=== PATIENT | female | born 1940 | race Caucasian/White ===

== ENCOUNTER → 2019-02-10 12:02 | Outpatient (CLI) | payer MEDICARE, SELFPAY ==
--- NOTE | 2019-02-10 12:04 | CA_ITS ---
APPROVED REPORT Control Room Agent: JAYCE Laterality: Bilateral Study Quality: Good Indications: left carotid bruit Doppler Spectral Velocity Analysis dICA (R) 85.00/27.80 cm/s dICA (L) 62.10/17.20 cm/s Linnette (R) 61.20/18.00 cm/s Linnette (L) 73.30/17.20 cm/s pICA (R) 53.50/15.80 cm/s pICA (L) 75.60/19.50 cm/s dCCA (R) 56.00/11.50 cm/s dCCA (L) 56.50/12.90 cm/s pCCA (R) 59.50/13.70 cm/s pCCA (L) 55.70/11.10 cm/s Vert (R) 36.60/10.60 cm/s Vert (L) 29.90/6.60 cm/s ICA/CCA 1.52 ICA/CCA 1.34 Conclusion Duplex evaluation demonstrates stenosis of the right proximal internal carotid artery in the range of 20-49% with PSV <140 cm/sec, EDV <100 cm/sec, and IC/CC Ratio <4.0.Duplex evaluation demonstrates stenosis of the left proximal internal carotid artery in the range of 20-49% with PSV <140 cm/sec, EDV <100 cm/sec, and IC/CC Ratio <4.0.Antegrade flow seen bilateral vertebral arteries. Electronically signed by : Taurus Cruz MD 02/13/2019 17:02:22
--- NOTE | 2019-02-10 12:04 | CA_ITS ---
APPROVED REPORT EXAM: Comprehensive 2D, Doppler, and color-flow Echocardiogram Concrete Float Maker: Arlet Paniagua RDCS Ht: 5 ft 3 in Wt: 196lbs BSA: 1.92 BP: 122/68 mmHg Indications: Aortic Valve Disease, Murmur, Shortness of Breath, Hyperlipidemia 2D Dimensions LVOT 1.91 cm (M/F) 1.5-2.5 M-Mode Dimensions RVDd 2.85 cm (0.9-2.6) LVDd 4.36 cm (3.5-5.7) LVDs 3.54 cm (3.5-5.7) IVSd 1.28 cm (0.6-1.1) PWd 1.05 cm (0.6-1.1) EF (Teich) 39.00% FS 18.80% EDV (Teich) 85.80 mL ESV (Teich) 52.30 mL LV Diastology E/A Ratio 0.70 Aortic Valve LVOT Max 93.00 (70-110 cm/s) LVOT VTI 21.95 cm Mitral Valve MV A Velocity 128.00 (40-130 cm/s) MV Mean Gr. 4.00 (<2mmHg) MV PHT 77.00 ms Left Ventricle Left atrium is moderately enlarged, left ventricle is normal size, mild concentric left ventricular hypertrophy, visually estimated ejection fraction 55% with no regional wall motion abnormality. Grade 1 diastolic dysfunction seen without tissue Doppler evidence of raise left atrial pressure. Right Ventricle Right atrium and right ventricular normal size and contractility. Aortic Valve Aortic valve is thickened and calcified with severe restriction to leaflet mobility, the mean gradient across valve is 21 mmHg however the valve area is calculated at 0.95 cm??? represents severe aortic stenosis, there is mild aortic insufficiency. Mitral Valve Mitral valve has mitral annular calcification, leaflets are minimally thickened, there is no significant mitral inflow obstruction, there is mild mitral regurgitation. Tricuspid Valve Tricuspid valve is grossly normal, there is mild tricuspid regurgitation, tricuspid regurgitation jet velocity is inadequate for calculation of the right ventricular systolic pressure. Pulmonic Valve Pulmonic valve is poorly visualized. Great Vessels Aortic root is normal size. Pericardium No significant pericardial effusion noted. Conclusion 1. Enlarged left atrium, normal left ventricular size, mild concentric left ventricular hypertrophy, visually estimated ejection fraction 55% with no regional wall motion abnormality, grade 1 diastolic dysfunction seen without tissue Doppler evidence of raise left atrial pressure. 2. Thickened and calcified aortic valve with severe restriction to leaflet mobility, mean gradient across aortic valve is 21 mmHg however the valve area is calculated at 0.95 cm??? represents severe aortic stenosis, there is mild aortic insufficiency. 3. Mild mitral and tricuspid regurgitation. 4. No significant pericardial effusion noted. Electronically signed by : Kunal Penny, 02/11/2019 06:07:44
== END ==
PROVIDERS: PCP Nurse Practitioner Family; Visit Provider Nurse Practitioner Family
DX: R09.89 Other specified symptoms and signs involving the circulatory and respiratory systems (principal); E11.9 Type 2 diabetes mellitus without complications; E78.2 Mixed hyperlipidemia; I11.9 Hypertensive heart disease without heart failure; I25.10 Atherosclerotic heart disease of native coronary artery without angina pectoris; I34.0 Nonrheumatic mitral (valve) insufficiency; I35.0 Nonrheumatic aortic (valve) stenosis; I70.1 Atherosclerosis of renal artery; N18.3 Chronic kidney disease, stage 3 (moderate); R06.09 Other forms of dyspnea; Z79.4 Long term (current) use of insulin
CPT/HCPCS: 93306; 93880

== ENCOUNTER → 2019-08-10 11:43 | Outpatient (CLI) | payer MEDICARE, SELFPAY | PROVIDERS: PCP Nurse Practitioner Family; Visit Provider Internal Medicine | DX: R06.00 Dyspnea, unspecified; I25.10 Atherosclerotic heart disease of native coronary artery without angina pectoris; E11.9 Type 2 diabetes mellitus without complications; E78.5 Hyperlipidemia, unspecified; I11.9 Hypertensive heart disease without heart failure; I35.0 Nonrheumatic aortic (valve) stenosis; I70.1 Atherosclerosis of renal artery; I73.9 Peripheral vascular disease, unspecified; N18.3 Chronic kidney disease, stage 3 (moderate); R09.89 Other specified symptoms and signs involving the circulatory and respiratory systems; Z79.4 Long term (current) use of insulin | CPT/HCPCS: 93306 ==

== ENCOUNTER → 2020-07-28 06:28 | Outpatient (CLI) | payer MEDICARE, SELFPAY ==
--- NOTE | 2020-07-28 06:30 | CA_ITS ---
APPROVED REPORT EXAM: Comprehensive 2D, Doppler, and color-flow Echocardiogram Trim And Burr Operator: Latonya Granados CRT Ht: 153 ft 4 in Wt: 194lbs BSA: 22.04 BP: 153/84 mmHg Indications: CAD, Hypertension/HDD, TAVR 2019, SOB, CAD 2D Dimensions LVOT 1.80 cm (M/F) 1.5-2.5 LA Volume 48.00 mL LA Volume Index 2.17 mL/m2 (M/F) 16-34 M-Mode Dimensions RVDd 2.60 cm (0.9-2.6) LA Diam 5.30 cm (1.9-4.0) LVDd 4.50 cm (3.5-5.7) Ao Diam 3.50 cm (2.0-3.7) LVDs 2.40 cm (3.5-5.7) AV Cusp 1.80 cm (1.5-2.6) IVSd 1.20 cm (0.6-1.1) PWd 0.80 cm (0.6-1.1) EF (Teich) 78.10% FS 46.70% EDV (Teich) 92.40 mL ESV (Teich) 20.20 mL LV Diastology E Decel Time 363.00 (160-240 msec) E/A Ratio 0.7 MED E' 3.70 (< 7 cm/sec) MED A' 7.02 cm/s E'/MED E' Ratio 29.20 (>14) LAT A' 8.87 cm/s Aortic Valve LVOT Max 150.00 (70-110 cm/s) LVOT VTI 33.10 cm AoV Peak Winston. 139.00 (50-130 cm/s) AO Peak GR. 8.00 mmHg AO Mean GR. 2.00 (<5 mmHg) AO VTI 20.20 (18-25 cm) FAHAD (VTI) 4.16 (2.5-4.5 cm2) Mitral Valve MV E Max Winston. 108.00 (40-130 cm/s) MV A Velocity 149.00 (40-130 cm/s) E/A Ratio 0.70 MV Decel. Time 363.00 (160-240 ms) Pulmonary Valve IN End VMAX 133.00 cm/s PA Accel Time 74.00 (>120 msec) Tricuspid Valve TR P. Velocity 262.00 cm/s RAP Estimate 10.00 mmHg RVSP 37.00 mmHg Left Ventricle Left atrium is mildly enlarged, left ventricle is normal size, mild concentric left ventricular hypertrophy, visually estimated ejection fraction 55% with no regional wall motion abnormality, grade 1 diastolic dysfunction seen with tissue Doppler evidence of raise left atrial pressure. Right Ventricle Right atrium and right ventricle are normal size and contractility. Aortic Valve There is stented valve noted in the aortic position, the valve is well-seated, there is no aortic outflow obstruction, there is mild aortic insufficiency. Mitral Valve Mitral valve has mitral annular calcification, leaflets are minimally thickened, there is no mitral stenosis, there is moderate mitral regurgitation. Tricuspid Valve Tricuspid valve grossly normal, there is mild tricuspid regurgitation. Tricuspid regurgitation jet velocity is inadequate for calculation of the right ventricular systolic pressure. Pulmonic Valve Pulmonic valve is poorly visualized. Great Vessels Aortic root is normal size. Pericardium No significant pericardial effusion noted. Conclusion 1. Mildly enlarged left atrium, normal left ventricular size, mild concentric left ventricular hypertrophy, visually estimated ejection fraction 55% with no regional wall motion abnormality, grade 1 diastolic dysfunction seen with tissue Doppler evidence of raise left atrial pressure. 2. Stented aortic valve without significant aortic outflow obstruction, there is mild aortic insufficiency. 3. Moderate mitral and mild tricuspid regurgitation. 4. No significant pericardial effusion noted. Electronically signed by : Kunal Penny, 07/28/2020 15:55:42
== END ==
PROVIDERS: PCP Nurse Practitioner Family; Visit Provider Internal Medicine
DX: E11.9 Type 2 diabetes mellitus without complications (principal); E78.5 Hyperlipidemia, unspecified; I11.9 Hypertensive heart disease without heart failure; I25.10 Atherosclerotic heart disease of native coronary artery without angina pectoris; I34.0 Nonrheumatic mitral (valve) insufficiency; I70.1 Atherosclerosis of renal artery; N18.30 Chronic kidney disease, stage 3 unspecified; R01.1 Cardiac murmur, unspecified; R06.00 Dyspnea, unspecified; R09.89 Other specified symptoms and signs involving the circulatory and respiratory systems; Z79.84 Long term (current) use of oral hypoglycemic drugs
CPT/HCPCS: 93306

== ENCOUNTER → 2022-01-17 11:55 | Outpatient (CLI) | payer MEDICARE, SELFPAY | PROVIDERS: PCP Nurse Practitioner Family; Visit Provider Internal Medicine | DX: R06.00 Dyspnea, unspecified (principal); R01.1 Cardiac murmur, unspecified ==

== ENCOUNTER → 2022-01-31 12:17 | Outpatient (CLI) | payer MEDICARE, SELFPAY | PROVIDERS: PCP Nurse Practitioner Family; Visit Provider Internal Medicine | DX: E78.2 Mixed hyperlipidemia (principal); H57.9 Unspecified disorder of eye and adnexa; I11.9 Hypertensive heart disease without heart failure; I25.10 Atherosclerotic heart disease of native coronary artery without angina pectoris; I35.0 Nonrheumatic aortic (valve) stenosis; I63.9 Cerebral infarction, unspecified; I65.23 Occlusion and stenosis of bilateral carotid arteries; I70.1 Atherosclerosis of renal artery; R06.09 Other forms of dyspnea | CPT/HCPCS: 93270 ==

== ENCOUNTER 2022-03-22 07:13 | Day surgery (SDC) | payer MEDICARE, SELFPAY ==
[2022-03-22 07:33] VITALS: BMI 33.6
[2022-03-22 08:05] VITALS: BP 161/72; PULSE 64; RESP 16; O2SAT 95
[2022-03-22 08:34] VITALS: BP 158/80; PULSE 66; RESP 16; O2SAT 96
[2022-03-22 08:42] VITALS: BP 166/87; PULSE 75; RESP 18; O2SAT 96
--- NOTE | 2022-03-22 09:49 | P.PCN_ITS ---
[facility] Loop Recorder Date: 03/22/22 Time: 08:30 Procedure Performed:: Implantation of loop recorder Indication:: Cryptogenic stroke Atrial fibrillation Technique:: Patient was brought to the cardiac [employer]. After informed consent obtained, 1% lidocaine with epinephrine was used to anesthetize the site along the left anterior aspect of the chest near the sternal border. Using the preformed scalpel, an incision was made and using the supplied preloaded apparatus, the loop recorder was placed subcutaneously without difficulty. Following the deployment of the loop recorder interrogation of the device was performed to ensure appropriate voltage was being detected. Once this was verified, Steri- Strips were placed over the incision and the patient was prepped to discharge home. Patient tolerated the procedure well with minimal discomfort. Impression:: Successful implantation of loop recorder Serial Number:: [employer] Lux-Dx Model number M301 Serial #[id number] Plan:: Routine postop care
== END 2022-03-22 08:42 | disposition home or self-care (01) ==
LOC: CATHLAB 07:13
PROVIDERS: PCP Nurse Practitioner Family; Visit Provider Internal Medicine
DX: I48.0 Paroxysmal atrial fibrillation (principal); I63.9 Cerebral infarction, unspecified; I65.23 Occlusion and stenosis of bilateral carotid arteries; I12.9 Hypertensive chronic kidney disease with stage 1 through stage 4 chronic kidney disease, or unspecified chronic kidney disease; N18.30 Chronic kidney disease, stage 3 unspecified
CPT/HCPCS: 33285

== ENCOUNTER → 2022-08-09 08:23 | Outpatient (CLI) | payer MEDICARE, SELFPAY | PROVIDERS: PCP Internal Medicine; Visit Provider Nurse Practitioner | DX: E78.2 Mixed hyperlipidemia (principal); I25.10 Atherosclerotic heart disease of native coronary artery without angina pectoris; I35.0 Nonrheumatic aortic (valve) stenosis; I63.9 Cerebral infarction, unspecified; I65.23 Occlusion and stenosis of bilateral carotid arteries; N18.30 Chronic kidney disease, stage 3 unspecified | CPT/HCPCS: 93306 ==

== ENCOUNTER 2023-06-27 11:03 | Outpatient (CLI) | payer MEDICARE, SELFPAY ==
--- NOTE | 2023-06-27 11:19 | XR_ITS ---
FINAL REPORT CLINICAL HISTORY: Shortness of breath COMPARISON: None FINDINGS: Diffuse coarse interstitial changes are noted suggesting chronic interstitial lung disease. Status post aortic valve repair. The cardiac silhouette is unremarkable. IMPRESSION: Interstitial changes, suspect chronic. Reviewed, Interpreted and Dictated by Ariana Park MD Transcribed by Vonnie Whitman Authenticated and [facility]
[2023-06-27 12:19] LABS: Alanine Aminotransferase 28 U/L (12-78); Albumin Level 4.2 g/dl (3.5-5.0); Alkaline Phosphatase 32 U/L (38-126); Anion Gap 8.6 mEq/L (5-15); Aspartate Amino Transferase 69 U/L (14-36); Bilirubin,Direct 0.4 mg/dl (0.0-0.4); Bilirubin,Indirect 0.4 mg/dL (0.0-0.9); Bilirubin,Total 0.8 mg/dl (0.2-1.3); Bilirubin,Unconjugated 0.4 mg/dL (0.0-1.1); Blood Urea Nitrogen 28 mg/dl (7-17); Calcium 9.8 mg/dl (8.4-10.2); Carbon Dioxide 29 mmol/L (22.0-30.0); Chloride 103 mmol/L (98-107); Chol/HDL Ratio 2.2 (1-3.5); Cholesterol 142 mg/dl (140-200); Estimated Glomerular Filt Rate 36 ml/min (>60); GFR (African American) 43 ML/MIN (>60); Glucose 74 mg/dl (74-100); HDL Cholesterol 65 mg/dl (40-60); Potassium 4.6 mmoL/L (3.5-5.1); Sodium 136 mmol/L (136-145); Total Protein,Serum 7.2 g/dl (6.3-8.2); Triglycerides 195 mg/dl (30-150); VLDL Cholesterol 39 mg/dL (0-40)
[2023-06-27 12:30] LABS: Direct LDL Cholesterol 57.94 mg/dL (100-129)
== END 2023-06-27 23:59 | disposition home or self-care (01) ==
LOC: LAB 11:04
PROVIDERS: PCP Nurse Practitioner Family; Visit Provider Nurse Practitioner
DX: R06.02 Shortness of breath; I63.9 Cerebral infarction, unspecified; I65.23 Occlusion and stenosis of bilateral carotid arteries; I35.0 Nonrheumatic aortic (valve) stenosis; E78.2 Mixed hyperlipidemia; N18.30 Chronic kidney disease, stage 3 unspecified; I25.10 Atherosclerotic heart disease of native coronary artery without angina pectoris; R60.9 Edema, unspecified; R06.09 Other forms of dyspnea; E78.5 Hyperlipidemia, unspecified; Z79.899 Other long term (current) drug therapy
CPT/HCPCS: 36415; 71046; 80048; 80061; 80076

== ENCOUNTER 2023-07-19 12:49 | Outpatient (CLI) | payer MEDICARE, SELFPAY ==
--- NOTE | 2023-07-19 12:49 | CA_ITS ---
APPROVED REPORT EXAM: Comprehensive 2D, Doppler, and color-flow Echocardiogram Director Of Spa And Guest Experience: JEFFRY Jones, RVS Ht: 5 ft 4 in Wt: 187lbs BSA: 1.90 BP: 128/59 mmHg Indications: -TAVRm CKD III, CVA, CAD, DM, DOS/SOB, Edema, HTN, HLD 2D Dimensions Left Atrium 3.60 cm M-Mode Dimensions RVDd 1.78 cm (0.9-2.6) LA Diam 5.30 cm (1.9-4.0) LVDd 5.18 cm (3.5-5.7) LVDs 2.95 cm (3.5-5.7) IVSd 0.94 cm (0.6-1.1) PWd 0.91 cm (0.6-1.1) EF (Teich) 69.80% EPSs 0.61 cm FS 39.40% EDV (Teich) 111.20 mL TAPSE 1.65 (<1.7) ESV (Teich) 33.60 mL LV Diastology E Decel Time 250 (160-240 msec) E/A Ratio 0.93 MED A' 7.80 cm/s LAT A' 7.80 cm/s Aortic Valve FAHAD Index 1.07 cm2/m2 AoV Peak Winston. 193.0 (50-130 cm/s) AO Peak GR. 14.90 mmHg AO Mean GR. 7.40 (<5 mmHg) AO VTI 42.0 (18-25 cm) FAHAD (VTI) 2.08 (2.5-4.5 cm2) Mitral Valve MV A Velocity 138.0 (40-130 cm/s) E/A Ratio 0.93 MV Mean Gr. 3.20 (<2mmHg) MV PHT 85.0 ms Pulmonary Valve PV Peak Velocity 65.0 (50-150 cm/s) Tricuspid Valve TR P. Velocity 264.00 cm/s Left Ventricle The left ventricle is normal size. The left ventricular systolic function is normal. The left ventricular ejection fraction is within the normal range. There is increased LV wall thickness. Proximal septal thickening is noted. The septum is asynchronous. Grade 2 diastolic dysfunction is present. LVEF is 55%. Right Ventricle Right ventricle is moderately dilated. Right ventricle is moderately hypokinetic. Atria Left atrium is severely dilated. Right atrium is mildly dilated. The interatrial septum is not well-visualized. Aortic Valve s/p TAVR. The prosthesis is well-seated. Peak velocity 1.9 m/s. Mean AV gradient 7 mmHg. Max AV gradient 11 mmHg. Mild central aortic regurgitation. No paravalvular leak. Mitral Valve Mild mitral annular calcification. The mitral valve leaflets are mildly thickened. No evidence of mitral valve stenosis. Moderate mitral regurgitation. Tricuspid Valve The tricuspid valve leaflets are thin and pliable. Mild tricuspid regurgitation. RVSP 28 mmHg + RA pressure. Pulmonic Valve The pulmonary valve is normal in structure. Trace pulmonic regurgitation. Great Vessels The aortic root is normal in size. The ascending aorta is not visualized. The IVC is not well-visualized. Pericardium There is no pericardial effusion. Other Information Study Quality: Fair Conclusion Normal LV systolic function. Grade 2 diastolic dysfunction. Moderate RV dilation with moderate reduction in RV function. Biatrial dilation. s/p TAVR. Mild AI. Acceptable transaortic parameters (peak velocity 1.9 m/s. Mean AV gradient 7 mmHg. Max AV gradient 11 mmHg). Moderate MR. Mild TR. RVSP 28 mmHg + RA pressure. Electronically signed by : Ara Kelley MD 07/24/2023 00:57:52
== END 2023-07-19 23:59 | disposition home or self-care (01) ==
LOC: RT 12:49
PROVIDERS: PCP Nurse Practitioner Family; Visit Provider Nurse Practitioner
DX: I63.9 Cerebral infarction, unspecified (principal); I65.23 Occlusion and stenosis of bilateral carotid arteries; I35.0 Nonrheumatic aortic (valve) stenosis; E78.2 Mixed hyperlipidemia; N18.30 Chronic kidney disease, stage 3 unspecified; I25.10 Atherosclerotic heart disease of native coronary artery without angina pectoris; R60.9 Edema, unspecified; R06.09 Other forms of dyspnea
CPT/HCPCS: 93306

== ENCOUNTER 2024-01-21 09:46 | Outpatient (CLI) | payer MEDICARE, SELFPAY ==
--- NOTE | 2024-01-21 10:38 | PC.NURSE ---
Pt completed 6 Minute Walk Test with no incident. Pt unable to perform PFT.
== END 2024-01-21 23:59 | disposition home or self-care (01) ==
LOC: RT 09:47
PROVIDERS: PCP Nurse Practitioner Family; Visit Provider Internal Medicine Pulmonary Disease
DX: R06.09 Other forms of dyspnea (principal)
CPT/HCPCS: 94618

== ENCOUNTER 2024-08-14 10:56 | Outpatient (CLI) | payer MEDICARE, SELFPAY ==
--- OUTSIDE RECORDS SUMMARY | 2024-05-08 11:00 | XMS_ITS | Encounter Summary ---
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 0 05/29/2024 Have you been ANNOYED by people criticizing your drinking? 0 05/29/2024 Have you felt GUILTY about your drinking? 0 05/29/2024 Have you had a drink first t elba in the morning (EYE-METAL GRINDER) to steady your nerves or to get rid of a hangover? 0 05/29/2024 CAGE Questionnaire Score 0 025 Comments No Sex and Gender Information Value Date Recorded Sex Assigned at Female 01/01/2022 11:20 AM EST Legal Sex Female 7:30 PM EDT Gender Identity Female 01/01/2022 11:20 AM EST Sexual Orientation Not on file documented as of this encounter Functional Status * Calculated C-SSRS Risk Score (Lifetime/Recent) Answer Date of Assessment Author No Risk Indicated 05/31/2024 8:00 AM EDT Juanis Bryan RN * Question Answer Date of Assessment Author 1. Wish to be (Past 1 Month) No 025 8:00 AM EDT Juanis Bryan RN 2. Non-Specific Active Suici ezra Thoughts (Past 1 Month) No 05/31/2024 8:00 AM EDT Bisi Bryan RN 6. Suicidal Behavior (Lifetime) No 8:00 AM EDT Juanis Bryan RN documented as of this encounter Miscellaneous Notes * Addendum Note - Louis Rosa - 05/08/2024 11:00 AM EDTAddended by: LOUIS ROSA on: 07/17/2024 12:02 PM Modules accepted: Orders * Progress Notes - Sade Salinas MD - 05/08/2024 11:00 AM EDT Retina Clinic Note CHIEF COMPLAINT cataract ou. HISTORY OF PRESENT ILLNESS: Jenifer Gilliam is a 84 y.o. female who presents to the clinic today for: REVIEW OF SYSTEMS: Negative except for Referring physician: No referring provider defined for this encounter. HISTORICAL INFORMATION: Selected notes from the medical record: CURRENT MEDICATIONS: No current outpatient medications on file. (Ophthalmic Drugs) No current facility-administered medications for this visit. (Ophthalmic Drugs) Current Outpatient Medications (Other) Medication Sig allopurinol (Zyloprim) 100 MG tablet Take 1 tablet (100 mg) by mouth 2 (two) times a day. Aspirin Low Dose 81 MG chewable tablet CHEW ONE (1) TABLET EVERY DAY BY ORAL ROUTE FOR 90 DAYS. carvedilol (Coreg) 6.25 MG tablet Take 1 tablet (6.25 mg) by mouth 2 (two) times a day with meals. cholecalciferol (Vitamin D3) 25 MCG (1000 UT) tablet Take 2 tablets (2,000 Units) by mouth 1 (one) time each day. clopidogrel (Plavix) 75 MG tablet Take 1 tablet (75 mg) by mouth 1 (one) time each day. fenofibrate (Tricor) 145 MG tablet TAKE ONE (1) TABLET EVERY DAY BY ORAL ROUTE FOR 90 DAYS. fluticasone (Flonase) 50 MCG/ACT nasal spray INSTILL 1 SPRAY IN EACH NOSTRIL ONCE DAILY. furosemide (Lasix) 20 MG tablet Take 1 tablet (20 mg) by mouth 2 (two) times a day. insulin aspart (NovoLOG FLEXPEN) 100 UNIT/ML injection 3 (three) times a day before meals. Per Pharmacy and patient: 24 units before breakfast, 16 units before lunch, and 16 units before dinner levothyroxine (Synthroid, Levoxyl) 75 MCG tablet Take 1 tablet (75 mcg total) by mouth 1 (one) timeeach day in the morning. Meclizine HCl 25 MG chewable tablet Chew 1 Chewable tablet 3 (three) times a day if needed. pantoprazole (Protonix) 40 MG EC tablet TAKE ONE (1) TABLET EVERY DAY BY ORAL ROUTE FOR 90 DAYS. Probiotic Product (acidophilus probiotic blend) capsule Take 1 capsule by mouth 1 (one) time each day. Repatha SureClick 140 MG/ML solution auto-injector INJECT EVERY TWO (2) WEEKS Toujeo Max SoloStar 300 UNIT/ML injection Inject 16 Units under the skin 1 (one) time each day in the morning. No current facility-administered medications for this visit. (Other) ALLERGIES Allergies Allergen Reactions Amoxicillin Nausea and Unknown - Patient states they do not know rxn details Insulin Detemir Nausea Iodine Other - please document in the comment field Iodine in foods, states daughter. Metformin Nausea Shellfish Allergy Other - please document in the comment field vomiting Statins Other - please document in the comment field Zofran [Ondansetron] Other - please document in the comment field Does not work for pt PAST MEDICAL HISTORY Past Medical History: Diagnosis Date Chronic kidney disease Coronary artery disease s/p PCI Diabetes mellitus ([facility]) GERD (gastroesophageal reflux disease) Hyperlipidemia Hypertension Hypothyroidism Personal history of other diseases of the circulatory system History of carotid artery stenosis Unspecified diastolic (congestive) heart failure ([facility]) Diastolic heart failure Past Surgical History: Procedure Laterality Date APPENDECTOMY N/A Appendectomy from [employer] CARDIAC VALVE SURGERY s/p TAVR. CHOLECYSTECTOMY N/A Cholecystectomy from [employer] OTHER SURGICAL HISTORY N/A Transcatheter aortic valve replacement from [employer] ROTATOR CUFF REPAIR N/A Rotator cuff repair from [employer] FAMILY HISTORY Family History Problem Relation Name Age of Onset Stroke Father Diabetes Father Malig Hyperthermia Neg Hx Anesthesia problems Neg Hx SOCIAL HISTORY Social History Tobacco Use Smoking status: Never Smokeless tobacco: Never Vaping Use Vaping status: Never Used Substance Use Topics Alcohol use: No Drug use: No Comment: Drug use: No illicit drug use GENERAL EXAM: General Exam: Neuro: Alert and Oriented x 3, normal mood and affect OPHTHALMIC EXAM: Base Eye Exam Visual Acuity (Snellen - Linear) Right Left Dist cc HM 20/50 -1 Dist ph cc 20/30 +1 Correction: Glasses Tonometry (Tonopen, 11:48 AM) Right Left Pressure 12 12 Pupils Shape React APD Right Round Minimal + Left Round Brisk None Visual Gaona Right Left Full Restrictions Total superior temporal, inferior temporal, superior nasal, inferior nasal deficiencies Extraocular Movement Right Left Full Full Neuro/Psych Oriented x3: Yes Mood/Affect: Normal Dilation Both eyes: 1% Tropicamide, 2.5% Phenylephrine @ 11:49 AM Additional Tests Glare Testing (BAT) Medium Right n/a Left 20/60-2 Slit Lamp and Fundus Exam External Exam Right Left External Normal Normal Slit Lamp Exam Right Left Lids/Lashes Normal for age Normal for age Conjunctiva/Sclera Normal Normal Cornea Clear and compact Clear and compact Anterior Chamber Deep and quiet Deep and quiet Iris Normal pupil size and shape;no nvi on dilated pupil Normal pupil size and shape;no nvi Lens 3+ NS with brunescence 3+ NS with moderate brunescence Anterior Vitreous Heme overlying posterior pole, mildly improved Normal Fundus Exam Right Left Disc No detail but smooth red reflex 360 No edema; no vascularization; good color (Shawanda 78 d Lens) C/D Ratio pale 0.3 Macula Normal reflex; without edema Vessels Perfused, filiform Perfused; no tortuosity or abnormality Periphery Attached 360 Attached; no retinal or choroidal lesions Refraction Wearing Rx Sphere Cylinder Marshall Add Right +1.50 +1.25 180 +2.75 Left +1.50 +1.00 002 +2.75 Type: Bifocal Manifest Refraction (Auto) Sphere Cylinder Marshall Dist VA Right No center X 3 Left +0.50 +1.25 173 20/30 Manifest Refraction #2 Sphere Cylinder Marshall Dist VA Right Left +0.50 +0.75 175 20/20-3 Final Rx Sphere Cylinder Marshall Dist VA Add Right Balance Left +0.50 +0.75 175 20/20-3 +2.75 Expiration Date: 05/08/2025 IMAGING AND PROCEDURES VISIT DIAGNOSES ASSESSMENT AND PLAN: Central retinal artery occlusion of right eye Vitreous hemorrhage, right eye (OD) - followed by Dr. Valentine - Initially seen in ED July 2022, underwent stroke workup with MRI head, CTA head/neck, and workup was unrevealing. ESR mildly elevated (not by age adjustment) and CRP was normal. - no NVI on dilated pupils, IOP wnl - retina attached 360 - WFFA transit right eye (OD) May 2023 - diffuse ischemia, no evidence of nvd or nve - last saw Dr. Valentine Jan 2024, observing - Dr. 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 Valentine - Left eye (OS) has cataract with moderate brunescence but BCVA 20/20 today; long discussion. - will monitor for now given good va and monocular; may need to plan for cataract extraction (CE) within the next year given increasing brunescence; discussed with patient who is amenable. - fu 6m Explained the diagnoses, plan, and follow up with the patient and they expressed understanding. Patient expressed understanding of the importance of proper follow up care. No follow-ups on file. There are no Patient Instructions on file for this visit. Electronically signed by: Sade Sauceda MD Tobacco Cessation Initiative: Tobacco Use: Low Risk (06/13/2023) Patient History Smoking Tobacco Use: Never Smokeless Tobacco Use: Never Passive Exposure: Not on file The patient has been counseled on tobacco cessation: Not Applicable documented in this encounter Plan of Treatment Upcoming Encounters Date Type Department Care Team (Late st Contact Info) Description 11/12/2024 10:30 AM EDT Office Visit [facility] [address] [place] [address] Sade Salinas MD [address] [place] [address] Scheduled Orders Name Type Priority Associated Diagnoses Orde r Schedule IOL Biometry - OU - Both Eyes Ophthalmology Routine 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 Left Eye Quality was good. Scan locations included subfoveal. Progression has been stable. Notes left eye (OS): stable, attached us Sade Sauceda MD OPHTH TOMOGRAPHY Final Result documented in this encounter Visit Diagnoses Diagnosis Central retinal artery occlusion of right eye- Primary Central artery occlusion of retina Cataract, nuclear sclerotic senile, right Vitreous hemorrhage of right eye (CMS/HCC) Vitreous hemorrhage Cataract, nuclear sclerotic senile, left documented in this encounter Additional Health Concerns Infection Onset Date Last Indicated Resolved Time Respiratory Rule-Out 05/29/2024 05/29/2024 025 6:07 PM EDT Human Metapneumovirus 05/29/2024 05/29/2024 Assessment Noted Time A fall risk assessment has been complete d for the patient 05/08/2024 11:36 AM EDT A Body Mass Index follow-up plan has been documented for the patient 05/08/2024 12:42 PM EDT documented as of this encounter Care Teams Core Filer Relationship Specialty Start Date End Date Pcp, [place] [address] PCP - General Family Medicine 07/19/21 documented as of this encounter
--- OUTSIDE RECORDS SUMMARY | 2024-06-30 11:11 | XMS_ITS | Continuity of Care Document ---
Author Organization [facility] Phone Care Team Providers Care Abrasive Worker Name Role Phone DONALDO COURTNEY Primary Attending DONALDO COURTNEY Admitting DONALDO COURTNEY Unavailable DONALDO COURTNEY Primary Care ALLERGIES AND ADVERSE REACTIONS ALLERGIES AND ADVERSE REACTIONS Code System Allergy Substance Adverse Reaction Date Reaction (Severity) Comment Status Reported By Updated By 723 RXNorm Amoxicillin Adverse reaction to substance Not Specified active [id number] on August 01, 2023 10:57:21 PM UTC iron-makes her sick (Free Text Allergy) Adverse reaction to substance Not Specified active [id number] on August 01, 2023 10:57:21 PM UTC fish-makes her sick (Free Text Allergy) Adverse reaction to substance Not Specified active [id number] on August 01, 2023 10:57:21 PM UTC IODINE; IODINE CONTAINING (Free Text Allergy) Adverse reaction to substance Not Specified active [id number] on August 01, 2023 10:57:21 PM UTC Shellfish-coy ived Products Adverse reaction to substance Not Specified active [id number] on August 01, 2023 10:57:19 PM UTC 87018 RXNorm Zofran Adverse reaction to substance Not Specified active [id number] on August 01, 2023 10:57:20 PM UTC [id number] RXNorm Levemir Adverse reaction to substance Not Specified active [id number] on August 01, 2023 10:57:20 PM UTC 6809 RXNorm metFORMIN Drug-induce d nausea and vomiting active [id number] on August 01, 2023 10:57:21 PM [place] [id number] SNOMED [address] Statins Drug-induce d nausea and vomiting active [id number] on August 01, 2023 10:57:21 PM UTC MEDICATIONS HOME MEDICATIONS Status RXNORM NDC Medication Dose Route Frequency Dates Comments Reported By Updated By Drug Treatment Unknown DISCHARGE MEDICATIONS Status RXNORM NDC Medication Dose Route Frequency Dates Comments Physician Updated By No Discharge Medication Info rmation Available INPATIENT MEDICATIONS Status RXNORM NDC Medication Dose Route Frequency Rat e Quantity Dates Comments Physician Updated By No Inpatient Medication Info rmation Available SOCIAL HISTORY SOCIAL HISTORY SNOMED-CT Social History Element Description Effective Dates Offered Cessation Comment UpdatedBy [id number] Smoking Status Unknown If Ever Smoked SOCIAL HISTORY - Gender Sex: Female SOCIAL HISTORY - Status : status i nformation is not available Intention in Next Year: intention information is not available SOCIAL HISTORY - Sexual Behavior Sexual Orientation Gender Identity SNOMED-CT Description SNO MED -CT Description Activity Level No of Partners Partner Type UpdatedBy Information is not available HEALTH CONCERNS Problems Concern Status Health Concern problem infor mation not available. Smoking Status Status Years Used Consumed packs p er day Health Concern smoking histo ry information not available. Family History Concern Status Health Concern family histor y information not available. ENCOUNTERS ENCOUNTER INFORMATION Reason for Visit RIGHT SHOULDER PAIN & PHYSICAL DECONDITIONING Admission June 09, 2024 2:48:00 PM [place] [address] Discharge June 25, 2024 3:59:00 AM [facility] DISCH ARGED TO HOME OR SELF CARE ENCOUNTER DIAGNOSES Notes information is not ericka ilable. Code System Diagnosis Onset Date Diagnosis information is not available. ABSTRACT DIAGNOSES Code System Diagnosis Updated By M25.511 ICD10 PAIN IN RIGHT SHOULDER OIK78 37 on June 30, 2024 3:10:54 PM [facility] M25.511 ICD10 PAIN IN RIGHT SHOULDER OIK78 37 on June 30, 2024 3:10:57 PM [facility] R53.81 ICD10 OTHER MALAISE [id number] on June 30, 2024 3:11:01 PM [facility] W19.XXXD ICD10 UNSPECIFIED FALL , SUBSEQUENT ENCOUNTER [id number] on June 30, 2024 3:11:11 PM [facility] CARE TEAM Care Abrasive Worker Role DONALDO COURTNEY Primary Attending DONALDO COURTNEY Admitting DONALDO COURTNEY Referring DONALDO COURTNEY Primary Care CARE TEAM CARE cmm technician Role on Team Status Start Date End Date Update d By SHERWIN FULTON PCP normal June 09, 2024 2:51:23 PM UT June 25, 2024 3:59:00 AM [facility] [id number] on June 09, 2024 2:51:23 PM [facility] SHERWIN FULTON Referring normal June 09, 2024 2:51:23 PM UT June 25, 2024 3:59:00 AM [facility] [id number] on June 09, 2024 2:51:23 PM [facility] SHERWIN FULTON Attending normal June 09, 2024 2:51:23 PM [facility] June 25, 2024 3:59:00 AM [facility] [id number] on June 09, 2024 2:51:23 PM [facility] SHERWIN FULTON Admitting normal June 09, 2024 2:51:23 PM [facility] June 25, 2024 3:59:00 AM [facility] [id number] on June 09, 2024 2:51:23 PM [facility]
--- OUTSIDE RECORDS SUMMARY | 2024-07-13 07:35 | XMS_ITS | Encounter Summary ---
Author Organization Healthcare Address [address] [place] [address] Care Team Providers Care Clinical Investigator Name Role Phone Pcp, No Primary Care Provider Unavailabl e Encounter Details Date Type Department Care Team (Late st Contact Info) Description 07/13/2024 7:35 AM EDT Ancillary Procedure [facility] [address] [place] [address] Social History Tobacco Use Types Packs/Day Years [...] drink first t elba in the morning (EYE-AUTOGRAPHER) to steady your nerves or to get rid of a hangover? 0 05/29/2024 CAGE Questionnaire Score 0 025 Comments No Sex and Gender Information Value Date Recorded Sex Assigned at Female 01/01/2022 11:20 AM EST Legal Sex Female 7:30 PM EDT Gender Identity Female 01/01/2022 11:20 AM EST Sexual Orientation Not on file documented as of this encounter Plan of Treatment Upcoming Encounters Date Type Department Care Team (Late st Contact Info) Description 11/12/2024 10:30 AM EDT Office Visit [facility] [address] [place] [address] Sade Salinas MD [address] [place] [address] documented as of this encounter Procedures Procedure Name Priority Date/Time Associated Diagnosis Comments FLUORESCEIN ANGIOGRAPHY - OU - BOTH EYES Routine 07/13/2024 11:33 AM EDT 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 Early phase findings include delayed filling. Left Eye Progression has no prior data. Notes right eye (OD) delayed arm to retina time (>30 secs), right eye (OD) no neovascularization elsewhere (NVE) or neovascularization of the disc (NVD). Left eye (OS) within normal limit Michael Valentine MD OPHTH PHOTOGRAPHY Final Result documented in this encounter Visit Diagnoses Not on filedocumented in this encounter Additional Health Concerns Infection Onset Date Last Indicated Resolved Time Human Metapneumovirus 05/29/2024 05/29/2024 Assessment Noted Time A fall risk assessment has been complete d for the patient 05/08/2024 11:36 AM EDT A Body Mass Index follow-up plan has been documented for the patient 07/13/2024 11:38 AM EDT documented as of this encounter Care Teams Clinical Investigator Relationship Specialty Start Date End Date Pcp, Nano [address] [place] [address] PCP - General Family Medicine 07/19/21 documented as of this encounter
--- OUTSIDE RECORDS SUMMARY | 2024-07-13 07:35 | XMS_ITS | Encounter Summary ---
Author Organization Healthcare Address [address] [place] [address] Care Team Providers Care Blocker Polishing Name Role Phone Pcp, No Primary Care Provider Unavailabl e Encounter Details Date Type Department Care Team (Late st Contact Info) Description 07/13/2024 7:35 AM EDT Ancillary Procedure [facility] [address] [place] [address] Social History Tobacco Use Types [...] drink first t elba in the morning (EYE-CHEMICAL EQUIPMENT CONTROLLER) to steady your nerves or to get [...] Description 11/12/2024 10:30 AM EDT Office Visit [facility] [address] [place] [address] Sade Salinas MD [address] [place] [address] documented as of this encounter Procedures Procedure Name Priority Date/Time Associated Diagnosis Comments OCT, RETINA - OU - BOTH EYES Routine 07/13/2024 11:33 AM EDT 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 Scan locations included subfoveal. Progression has been stable. Left Eye Quality was good. Scan locations included subfoveal. Progression has been stable. Findings include normal observations, normal foveal contour. Notes Right eye (OD) PAMM sequelae Michael Valentine MD OPHTH TOMOGRAPHY Final Result documented in [...] documented as of this encounter Care Teams Blocker Polishing Relationship Specialty Start Date End Date [place]cp, [place] [address] PCP - General Family Medicine 07/19/21 documented as of this encounter
--- OUTSIDE RECORDS SUMMARY | 2024-07-13 10:15 | XMS_ITS | Encounter Summary ---
Author Organization Healthcare Address [address] [place] [address] Care Team Providers Care Copy Lathe Tender Name Role Phone Pcp, No Primary Care Provider Unavailabl e Encounter Details Date Type Department Care Team (Late st Contact Info) Description 07/13/2024 10:15 AM EDT Office Visit [facility] [address] [place] [address] Michael Valentine MD [address] [address] Ocular ischemic syndrome (Primary Dx); Combined forms of age-related cataract of both eyes; Rubeosis iridis of right eye Social History Tobacco Use Types Packs/Day Years [...] drink first t elba in the morning (EYE-GLOBAL IMPLEMENTATION MANAGER) to steady your nerves or to get rid of a hangover? 0 05/29/2024 CAGE Questionnaire Score 0 025 Comments No Sex and Gender Information Value Date Recorded Sex Assigned at Female 01/01/2022 11:20 AM EST Legal Sex Female 7:30 PM EDT Gender Identity Female 01/01/2022 11:20 AM EST Sexual Orientation Not on file documented as of this encounter Miscellaneous Notes * Progress Notes - Michael Valentine MD - 07/13/2024 10:15 AM EDT Visit Diagnosis: 1. Ocular ischemic syndrome Fluorescein Angiography - OU - Both Eyes, OCT, Retina - OU - Both Eyes 2. 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 Left eye (OS) within normal limit - OCT PAMM sequelae - right eye (OD) fluorescein dye noted in anterior chamber (AC), possible Neovascularization of Iris or breach in blood ocular barrier. - Prefer to proceed with cataract surgery for better retina assessment and management Will need PreOp IntraVitreal Avastin with Dr Lepe Panretinal photocoagulation (PRP) after cataract surgery with ga in [place] - Letter to PCP for 2D echo, carotid doppler, EKG. Both eyes (OU) cataract - managed with Dr Lepe - Patient symptomatic for left eye (OS) and wants surgery matt Follow up in about 4 months (around 11/13/2024) for Dilated Exam OU, OCT, Laser . Patient expressed understanding of the diagnoses, plan, and follow up. Thanks for involving Retina / Ocular Oncology services at [facility] in the care. Electronically signed by: Michael Valentine MD 07/13/2024 11:38 AM Tobacco Cessation Initiative: Tobacco Use: Low Risk (05/08/2024) Patient History Smoking Tobacco Use: Never Smokeless Tobacco Use: Never Passive Exposure: Never The patient has been counseled on tobacco cessation: Not Applicable documented in this encounter Plan of Treatment Upcoming Encounters Date Type Department Care Team (Late st Contact Info) Description 11/12/2024 10:30 AM EDT Office Visit [facility] [address] [place] [address] Sade Salinas MD [address] [place] [address] documented as of this encounter Procedures Procedure Name Priority Date/Time Associated Diagnosis Comments FLUORESCEIN ANGIOGRAPHY - OU - BOTH EYES Routine 07/13/2024 11:33 AM EDT Ocular ischemic syndrome OCT, RETINA - OU - BOTH EYES [...] Michael Valentine MD OPHTH PHOTOGRAPHY Final Result * OCT, Retina - OU - Both [...] documented in this encounter Visit Diagnoses Diagnosis Ocular ischemic syndrome- Primary Retinal ischemia 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
--- OUTSIDE RECORDS SUMMARY | 2024-07-30 07:47 | XMS_ITS | Continuity of Care Document ---
Author Organization [facility] Phone Care Team Providers Care Uniformer Name Role Phone DONALDO COURTNEY Unavailable DONALDO COURTNEY Admitting DONALDO COURTNEY Primary Attending DONALDO COURTNEY Primary Care ALLERGIES AND ADVERSE REACTIONS ALLERGIES AND ADVERSE REACTIONS Code System Allergy Substance Adverse Reaction Date Reaction (Severity) Comment Status Reported By Updated By 723 RXNorm Amoxicillin Adverse reaction to substance Not Specified active [id number] on August 01, 2023 10:57:21 PM UTC iron-makes her sick (Free Text Allergy) Adverse reaction to substance Not Specified active [id number] on August 01, 2023 10:57:21 PM UTC fish-makes her sick (Free Text Allergy) Adverse reaction to substance Not Specified active [id number] on August 01, 2023 10:57:21 PM UTC IODINE; IODINE CONTAINING (Free Text Allergy) Adverse reaction to substance Not Specified active [id number] on August 01, 2023 10:57:21 PM UTC Shellfish-coy ived Products Adverse reaction to substance Not Specified active [id number] on August 01, 2023 10:57:19 PM UTC 69224 RXNorm Zofran Adverse reaction to substance Not Specified active HGZ5457 on August 01, 2023 10:57:20 PM UTC [id number] RXNorm Levemir Adverse reaction to substance Not Specified active [id number] on August 01, 2023 10:57:20 PM UTC 6809 RXNorm metFORMIN Drug-induce d nausea and vomiting active [id number] on August 01, 2023 10:57:21 PM UTC [id number] SNOMED CT Statins Drug-induce d nausea and vomiting active [id number] on August 01, 2023 10:57:21 PM UTC [...] Description Effective Dates Offered Cessation Comment UpdatedBy [id number] Smoking Status Unknown If Ever Smoked SOCIAL [...] SHOULDER PAIN & PHYSICAL DECONDITIONING Admission June 25, 2024 7:02:00 AM [place] [address] Discharge July 26, 2024 3:59:00 AM [facility] DISC HARGED TO HOME OR SELF CARE ENCOUNTER DIAGNOSES Notes information is not ericka ilable. Code System Diagnosis Onset Date Diagnosis information is not available. ABSTRACT DIAGNOSES Code System Diagnosis Updated By M25.511 ICD10 PAIN IN RIGHT SHOULDER OIK78 37 on July 30, 2024 11:47:30 AM [facility] M25.511 ICD10 PAIN IN RIGHT SHOULDER OIK78 37 on July 30, 2024 11:47:30 AM [facility] R53.81 ICD10 OTHER MALAISE [id number] on Jul 11:47:30 AM [facility] W19.XXXD ICD10 UNSPECIFIED FALL , SUBSEQUENT ENCOUNTER [id number] on July 30, 2024 11:47:30 AM [facility] CARE TEAM Care Uniformer Role DONALDO COURTNEY Referring DONALDO COURTNEY Admitting DONALDO COURTNEY Primary Attending DONALDO COURTNEY Primary Care CARE TEAM CARE call center supervisor Role on Team Status Start Date End Date Update d By SHERWIN FULTON Referring normal June 25, 2024 6:01:22 PM [facility] July 26, 2024 3:59:00 AM [facility] [id number] on June 25, 2024 6:01:22 PM [facility] SHERWIN FULTON Attending normal June 25, 2024 6:01:22 PM [place] July 26, 2024 3:59:00 AM [facility] [id number] on June 25, 2024 6:01:22 PM [facility] SHERWIN FULTON Admitting normal June 25, 2024 6:01:22 PM [facility] July 26, 2024 3:59:00 AM [facility] [id number] on June 25, 2024 6:01:22 PM [facility] SHERWIN FULTON PCP normal June 25, 2024 7:02:41 AM [facility] July 26, 2024 3:59:00 AM [facility] [id number] on June 25, 2024 6:01:22 PM [facility]
--- OUTSIDE RECORDS SUMMARY | 2024-08-14 10:58 | XMS_ITS | Encounter Summary ---
Author Organization Healthcare Address [address] [place] [address] Care Team Providers Care Quality Assurance Associate Name Role Phone Pcp, No Primary Care Provider Unavailabl e Encounter Details Date Type Department Care Team (Latest Contact Info) Description 07/13/2024 Travel Social History Tobacco Use Types Packs/Day Years [...] drink first t elba in the morning (EYE-E LEARNING DEVELOPER) to steady your nerves or to get [...] Upcoming Encounters Date Type Department Care Team ( Contact Info) Description 11/12/2024 10:30 AM EDT Office Visit [facility] [address] [place] [address] Sade Salinas MD [address] [place] [address] documented as of this encounter Visit Diagnoses Not on filedocumented [...] documented as of this encounter Care Teams Quality Assurance Associate Relationship Specialty Start Date End Date Pcp, [place] [address] PCP - General Family Medicine 07/19/21 documented as of this encounter
--- OUTSIDE RECORDS SUMMARY | 2024-08-14 10:58 | XMS_ITS | Encounter Summary ---
Author Organization Healthcare Address [address] [place] [address] Care Team Providers Care Appliance Servicer Name Role Phone Pcp, No Primary Care Provider Unavailabl e Encounter Details Date Type Department Care Team (Late st Contact Info) Description 07/28/2024 [facility] [address] [place] [address] Michael Valentine MD [address] [address] Social History Tobacco Use Types Packs/Day [...] drink first t elba in the morning (EYE-LINUX SYSTEM ADMIN) to steady your nerves or to get rid of a hangover? 0 05/29/2024 CAGE Questionnaire Score 0 025 Comments No Sex and Gender Information Value Date Recorded Sex Assigned at Female 01/01/2022 11:20 AM EST Legal Sex Female 7:30 PM EDT Gender Identity Female 01/01/2022 11:20 AM EST Sexual Orientation Not on file documented as of this encounter Miscellaneous Notes * Telephone Encounter - Mary Franklinpaul Downey - 07/28/2024 10:34 AM EDT Called winter's daughter and to get PCP information. Patient sees Tameka Terry at [facility]. ; fax : [phone] Sent last clinic note and testing recommendations to fax listed above. documented in this encounter Plan of Treatment Upcoming Encounters Date Type Department Care Team (Late st Contact Info) Description 11/12/2024 10:30 AM EDT Office Visit [facility] [address] [place] [address] Sade Salinas MD [address] [address] documented as of this encounter Visit [...] documented as of this encounter Care Teams Appliance Servicer Relationship Specialty Start Date End Date [place], [place] [address] PCP - General Family Medicine 07/19/21 documented as of this encounter
--- OUTSIDE RECORDS SUMMARY | 2024-08-14 10:58 | XMS_ITS | Encounter Summary ---
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 Valentine recommends in both eyes,and patient wanting to also proceed in left eye (OS). Discussed that visual acuity (VA) still good in left eye (OS), but patient with significant difficulty with ADLs, likely given monocularity. We had previously discussed R/b/a of surgery at last visit; does have intraocular lens (IOL) calcs. Discussed that we will proceed with left eye (OS) first, and then right eye (OD). Reiterated that right eye (OD) surgery won't affect vision (poor prognosis) and will be done in order to better visualize fundus for possible panretinal photocoagulation (PRP), per Dr. Valentine. Will have chart reviewed by [facility] anesthesia given multiple co-morbidities. Good dilation both eyes (OU), dense 3+ NS cataract both eyes (OU) Right eye (OD) SY60WF + 23.00D; MA60AC +22.00D Left eye (OS) SY60WF + 22.50D; MA60AC +21.50D documented in this encounter Plan of Treatment Upcoming Encounters Date Type Department Care Team (Late st Contact Info) Description 11/12/2024 10:30 AM EDT Office Visit [facility] [address] [place] [address] Sade Salinas MD [address] [place] [place] [address] documented as of this encounter [...] documented as of this encounter Care Teams Lead Generator Relationship Specialty Start Date End Date Pcp, [place] [address] PCP - General Family Medicine 07/19/21 documented as of this encounter
--- OUTSIDE RECORDS SUMMARY | 2024-08-14 10:58 | XMS_ITS | Clinical Summary ---
Author Organization [facility] Address [address] [place] [address] Care Team Providers Care Risk Assessment Analyst Name Role Phone Pcp, No Primary Care Provider Unavailabl e Allergies Active Allergy Reactions Criticality Noted Date Comments Amoxicillin Nausea,Unknown - Patient states they do not know rxn details Low 08/25/2012 Insulin Detemir Nausea Low 07/19/2021 Iodine Other - please docum ent in the comment field Low 08/25/2012 Iodine in foods, states daughter. Metformin Nausea Low 07/19/2021 Shellfish Allergy Other - please docum ent in the comment field Low 12/25/2021 vomiting Statins Other - please docum ent in the comment field Low 04/14/2019 Ondansetron Other - please docum ent in the comment field Low 11/01/2021 Does not work for pt Medications carvedilol (Coreg) 6.25 MG tablet Take 1 tablet (6.25 mg) by mouth 2 (two) times a day with meals. 0 Active cholecalciferol (Vitamin D-3) 50 MCG (1999 UT) capsule Take 1 capsule by mouth in the morning. 2 Active clopidogrel (Plavix) 75 MG tablet Take 1 tablet (75 mg) by mouth 1 (one) time each day. 9 Active insulin aspart (NovoLOG FLEXPEN) 100 UNIT/ML injection 3 (three) times a day before meals. Per Pharmacy and patient: 24 units before breakfast, 16 units before lunch, and 16 units before dinner 0 Active Meclizine HCl 25 MG chewable tablet Chew 1 Chewable tablet 3 (three) times a day if needed. 2 Active levothyroxine (Synthroid, Levoxyl) 75 MCG tablet Take 1 tablet (75 mcg total) by mouth 1 (one) time each day in the morning. 30 tablet 11 2 Active fenofibrate (Tricor) 145 MG tablet TAKE ONE (1) TABLET EVERY DAY BY ORAL ROUTE FOR 90 DAYS. 2 Active Repatha SureClick 140 MG/ML solution auto-injector INJECT EVERY TWO (2) WEEKS 2 Active Probiotic Product (acidophilus probiotic blend) capsule Take 1 capsule by mouth 1 (one) time each day. Active Aspirin Low Dose 81 MG chewable tablet Chew 1 tablet daily. 4 Active pantoprazole (Protonix) 40 MG EC tablet Take 1 tablet by mouth daily. 4 Active fluticasone (Flonase) 50 MCG/ACT nasal spray Administer 1 spray into each nostril daily as needed. 4 Active spironolactone (Aldactone) 25 MG tablet Take 1 tablet (25 mg) by mouth Daily. Active Multiple Vitamin (multivitamin) tablet Take 1 tablet by mouth daily. Active Calcium 250 MG capsule Take by mouth. Activ e furosemide (Lasix) 40 MG tablet Take 1 tablet by mouth daily. 30 tablet 2 5 Active allopurinol (Zyloprim) 100 MG tablet Take 0.5 tablets by mouth daily. 15 tablet 2 5 Active insulin glargine (Lantus) 100 UNIT/ML injection vial Inject 10 Units under the skin every morning. 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 22 Obesity (BMI 35.0-39.9 without comorbidity) 11/27 Severe obesity (BMI 35.0-39.9) with comorbidity 12/25/2021 Basal cell carcinoma (BCC) of skin of left ear 0 07/19/2021 Overview (07/19/2021): Added automatically from request for surgery [id number] Squamous cell carcinoma of skin of face 07/20/19 22 Overview (07/19/2021): Added automatically from request for surgery [id number] Mohs defect 07/19/2021 Overview (07/19/2021): Added automatically from request for surgery [id number] Acquired hypothyroidism 06/20/2020 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 06/20/2020 Coronary arteriosclerosis 06/20/2020 Gastroesophageal reflux disease without esophagi tis 06/20/2020 Gout 06/20/2020 Hyperglycemia due to type 2 diabetes mellitus Mixed hyperlipidemia 06/20/2020 Senile osteoporosis 06/20/2020 S/P TAVR (transcatheter aortic valve replacement ) 07/30/2019 Aortic stenosis 04/16/2019 Benign essential hypertension 04/16/2019 Nonobstructive atherosclerosis of coronary arter y 04/16/2019 Diabetes 04/16/2019 Severe aortic stenosis 04/14/2019 RBBB (right bundle branch block) 04/14/2019 S/P laparoscopic appendectomy 12/05/2018 Encounters Date Type Department Care Team Description 07/28/2024 Telephone [facility] [address] [place] [address] Michael Valentine MD 07/13/2024 10:15 AM EDT Office Visit [facility] [address] [place] [address] Michael Valentine MD Ocular ischemic syndrome (Primary Dx); Combined forms of age-related cataract of both eyes; Rubeosis iridis of right eye 07/13/2024 7:35 AM EDT Ancillary Procedure [facility] [address] [place] [address] 07/13/2024 7:35 AM EDT Ancillary Procedure [facility] [address] [place] [address] 07/13/2024 Telephone [facility] [address] [place] [address] Sade Salinas MD 07/13/2024 Travel 07/10/2024 Travel 05/30/2024 Travel 05/29/2024 12:55 AM EDT - 05/31/2024 3:20 PM EDT Hospital Encounter [facility] [address] [address] [place] [address] Swapna Mercado MD Stearley, Seth T, MD MacPherson, Alexandra, DO Closed fracture of multiple cervical vertebrae, initial encounter ([facility]) (Primary Dx); Acute hypoxic respiratory failure; Pneumonia due to infectious organism, unspecified laterality, unspecified part of lung; Debility Discharge Disposition: Home or Self Care 05/29/2024 Travel 05/28/2024 Orders Only External Location [address] [place] [id number] Provider, External 05/28/2024 Orders Only External Location [address] [place] [id number] Provider, External from Last 3 Months Family History Medical History Relation Name Comments Diabetes Father Lawson Stroke Father Lawson Macular degeneration Father's Sister 1 Mila Macular degeneration Father's Sister 2 Katya Macular degeneration Father's Sister 3 Mila Macular degeneration Father's Sister 4 Katya Anesthesia problems Neg Hx Malig Hyperthermia Neg Hx Relation Name Status Comments Father Lawson Father's Sister 1 Mila Alive Father's Sister 2 [place] Alive Father's Sister 3 Mila Alive Father's Sister 4 Katya Alive Social History Tobacco Use Types Packs/Day Years [...] drink first t elba in the morning ([employer]) to steady your nerves or to get rid of a hangover? 0 05/29/2024 CAGE Questionnaire Score 0 025 Comments No Sex and Gender Information Value Date Recorded Sex Assigned at Female 01/01/2022 11:20 AM EST Legal Sex Female 7:30 PM EDT Gender Identity Female 01/01/2022 11:20 AM EST Sexual Orientation Not on file Last Filed Vital Signs Vital Sign Reading Time Taken Comments Blood Pressure 138/79 05/31/2024 11:46 AM EDT Pulse 70 05/31/2024 11:46 AM EDT Temperature 36.3 C (97.4 F) 05/31/2024 11:46 AM EDT Respiratory Rate 18 05/31/2024 4:11 AM EDT Oxygen Saturation 92% 05/31/2024 11:46 AM EDT Inhaled Oxygen Concentration - - Weight 82.1 kg (181 lb) 05/30/2024 5:34 AM EDT Height 157.5 cm (5' 2 ) 05/29/2024 7:51 PM EDT Body Mass Index 33.1 05/29/2024 7:51 PM EDT Plan of Treatment Upcoming Encounters Date Type Department Care Team (Late st Contact Info) Description 11/12/2024 10:30 AM EDT Office Visit [facility] [address] [place] [address] Sade Salinas MD [address] [address] Health Maintenance Due Date Last Done Comments [facility]-Depression Screening 1940 [facility]Medicare Annual Wellness (AWV) 1940 [facility]-Infant/Child/Adol SDOH Screenings 1939 Diabetes: Dental Exam 1949 [facility]- SDOH Screenings 1957 [facility]-Adult SDOH Screenings 1957 [facility]-DTaP,Tdap,and Td Vaccines (1 - Tdap) 1958 [facility]-Zoster Vaccines (1 of 2) 1958 [facility]-RSV Vaccine: 60+ Years or (1 - 1-dose 75+ series) 2014 [facility]-Bone Density Scan 09/04/2017 09/04/2016 , 07/15/2014, 07/15/2014 [facility]-Pneumococcal Vaccine: 50+ Years (2 of 2 - PCV) 12/09/2018 12/09/2017 [facility]-Diabetes: Hemoglobin A1C 06/24/2022 12/25/2021, 03/10/2020, 12/03/2019, Additional history exists CJK-YKLUE-60 Vaccine ( season) 2023 12/25/2022, 01/10/2022, 10/17/2021, Additional history exists [facility]-Influenza Vaccine Completed 11/07/2023 , 12/25/2022, 01/10/2022, Additional history exists [facility]-Obesity Intervention Completed 025, 05/28/2024, 05/08/2024, Additional history exists HPV Vaccines Aged Out No longer eligi ble based on patient's age to complete this topic [facility]-HIB Vaccines Aged Out No longer e ligible based on patient's age to complete this topic [facility]-Hepatitis A Vaccines Aged Out No longer eligible based on patient's age to complete this topic [facility]-IPV Vaccines Aged Out No longer e ligible based on patient's age to complete this topic [facility]-Rotavirus Vaccines Aged Out No lo nger eligible based on patient's age to complete this topic Procedures Procedure Name Priority Date/Time Associated Diagnosis Comments FLUORESCEIN ANGIOGRAPHY - OU - BOTH EYES Routine 07/13/2024 11:33 AM EDT Ocular ischemic syndrome OCT, RETINA - OU - BOTH EYES Routine 07/13/2024 11:33 AM EDT Ocular ischemic syndrome POCT GLUCOSE METER UNSOLICITED RESULTS Routine 05/31/2024 12:29 PM EDT POCT GLUCOSE METER UNSOLICITED RESULTS Routine 05/31/2024 8:22 AM EDT CBC W/O DIFFERENTIAL Routine 05/31/2024 2:56 AM EDT COMPREHENSIVE METABOLIC PANEL, PLASMA Routine 05/31/2024 2:56 AM EDT MAGNESIUM, PLASMA Routine 05/31/2024 2:5 6 AM EDT PHOSPHORUS, PLASMA Routine 05/31/2024 2: 56 AM EDT POCT GLUCOSE METER UNSOLICITED RESULTS Routine 05/30/2024 8:29 PM EDT POCT GLUCOSE METER UNSOLICITED RESULTS Routine 05/30/2024 5:21 PM EDT POCT GLUCOSE METER UNSOLICITED RESULTS Routine 05/30/2024 12:39 PM EDT ECHO, ADULT TRANSTHORACIC COMPLETE Routine 05/30/2024 10:20 AM EDT POCT GLUCOSE METER UNSOLICITED RESULTS Routine 05/30/2024 8:42 AM EDT MAGNESIUM, PLASMA Routine 05/30/2024 2:4 7 AM EDT BASIC METABOLIC PANEL, PLASMA Routine 05/30/2024 2:47 AM EDT CBC W/O DIFFERENTIAL Routine 05/30/2024 2:47 AM EDT POCT GLUCOSE METER UNSOLICITED RESULTS Routine 05/29/2024 7:55 PM EDT POCT GLUCOSE METER UNSOLICITED RESULTS Routine 05/29/2024 4:55 PM EDT STREPTOCOCCUS PNEUMONIAE AND LEGIONELLA URINARY ANTIGEN Routine 05/29/2024 4:45 PM EDT NASOPHARYNGEAL RESPIRATORY PANEL Routine 05/29/2024 3:29 PM EDT XR CHEST 1 VIEW STAT 05/29/2024 1:[address] ANGIO NECK STAT 05/29/2024 4:[address] LUMBAR SPINE WO IV CONTRAST STAT 05/29/2024 4:[address] THORACIC SPINE WO IV CONTRAST STAT 05/29/2024 4:[address] CERVICAL SPINE WO IV CONTRAST STAT 05/29/2024 4:07 AM EDT PERIPHERAL BLOOD SMEAR, PATHOLOGIST INTERPRETATION STAT 05/29/2024 2:07 AM EDT N-TERMINAL PROBNP, PLASMA Add-On 05/29/2024 2:07 AM EDT TYPE AND SCREEN STAT 05/29/2024 2:07 AM EDT APTT STAT 05/29/2024 2:07 AM EDT PROTHROMBIN TIME(PT) / INR STAT 05/29/2024 2:07 AM EDT CBC WITH AUTO DIFFERENTIAL STAT 05/29/2024 2:07 AM EDT COMPREHENSIVE METABOLIC PANEL, PLASMA STAT 05/29/2024 2:07 AM EDT POCT GLUCOSE METER UNSOLICITED RESULTS Routine 05/29/2024 1:[address] NEURO OUTSIDE IMAGES 05/29/19 5:[address] NEURO OUTSIDE IMAGES 05/29/19 5:16 PM EDT HEMOGLOBIN A1C Add-On 12/25/2021 3:01 AM EDT from Last 3 Months or Most Recently Relevant to Health Maintenance Results * Fluorescein Angiography - OU - [...] (NVD). Left eye (OS) within normal limit us Michael Valentine MD OPHTH PHOTOGRAPHY Final Result [...] Michael Valentine MD OPHTH TOMOGRAPHY Final Result * (ABNORMAL) POCT glucose meter (05/31/2024 12:29 PM EDT) Only the most recent of9 resultswithin the time period is included. POCT Glucose 277(H) 74 - 99 mg/dL 05/31/2024 12:30 PM EDT [facility] Comment:Accuracy of a glucos e result obtained from a capillary whole blood specimen relies upon adequate, non-compromised capillary blood flow. If the capillary glucose result is not consistent with the patient's clinical signs and symptoms, glucose testing should be repeated with either an arterial or venous sample on the glucometer or sent to the main labortory for testing. Comment 05/31/2024 12:30 PM EDT [facility] Fiber Technician ID [email or web address] 05/31/2024 12:30 PM EDT [facility] Device ID [id number] 05/31/2024 12:30 PM EDT [facility] Specimen Type POC Capillary 05/31/2024 12:30 PM EDT [facility] Blood Capillary blood specimen / Unknown 05/31/2024 12:29 PM EDT 05/31/2024 12:30 PM EDT us Mimi Lozada DO LAB POINT OF CAR E TEST DOCKED DEVICE UNSOLICITED RESULTS Final Result [facility] [address] [place] [address] * (ABNORMAL) CBC W/O Differential (05/31/2024 2:56 AM EDT) Only the most recent of2 resultswithin the time period is included. WBC Count 10.23 3.70 - 10.30 10*3/uL LAB HEMATOLOGY METHOD 05/31/2024 3:21 AM EDT [facility] RBC Count 3.56(L) 3.90 - 5.20 10*6/uL LAB HEMATOLOGY METHOD 05/31/2024 3:21 AM EDT [facility] HGB 11.3 11.2 - 15.7 g/dL LAB HEMATOLOGY METHOD 05/31/2024 3:21 AM EDT [facility] HCT 33.8(L) 34.0 - 45.0 % LAB HEMATOLOGY METHOD 05/31/2024 3:21 AM EDT [facility] Platelet Count 196 155 - 369 10*3/uL LAB HEMATOLOGY METHOD 05/31/2024 3:21 AM EDT [facility] MCV 95 79 - 98 fL LAB HEMATOLOGY METHOD 05/31/2024 3:21 AM EDT [facility] MCH 31.7 26.0 - 32.0 pg LAB HEMATOLOGY METHOD 05/31/2024 3:21 AM EDT [facility] MCHC 33.4 30.7 - 35.5 g/dL LAB HEMATOLOGY METHOD 05/31/2024 3:21 AM EDT [facility] RDW 14.4 11.5 - 14.5 % LAB HEMATOLOGY METHOD 05/31/2024 3:21 AM EDT [facility] MPV 10.2 8.8 - 12.5 fL LAB HEMATOLOGY METHOD 05/31/2024 3:21 AM EDT [facility] nRBC 0.0 <=0.0 per 100 WBCs LAB HEMATOLOGY METHOD 05/31/2024 3:21 AM EDT [facility] Blood Venous blood specimen / Unknown Venipuncture / Unknown 05/31/2024 2:56 AM EDT 05/31/2024 3:11 AM EDT [facility] ORDERAB[facility] Fin al Result Performing Organization Address City/[facility] Co de Phone Number [facility] [address] [place] [address] * (ABNORMAL) Phosphorus, Plasma (05/31/2024 2:56 AM EDT) Phosphorus, Plasma 1.9(L) 2.5 - 4.5 mg/dL 05/31/2024 3:45 AM EDT [facility] Blood Venous blood specimen / Unknown Venipuncture / Unknown 05/31/2024 2:56 AM EDT 05/31/2024 3:10 AM EDT [facility] BLOOD ORDERABLES Fin al Result Performing Organization Address [facility] Co de Phone Number [facility] [address] [place] [address] * (ABNORMAL) Magnesium, Plasma (05/31/2024 2:56 AM EDT) Only the most recent of2 resultswithin the time period is included. Magnesium, Plasma 1.4(L) 1.9 - 2.4 mg/dL 05/31/2024 3:45 AM EDT [facility] Blood Venous blood specimen / Unknown Venipuncture / Unknown 05/31/2024 2:56 AM EDT 05/31/2024 3:10 AM EDT [facility] BLOOD ORDERABLES Fin al Result Performing Organization Address City/[facility] Co de Phone Number [facility] [address] [place] [address] * (ABNORMAL) Comprehensive Metabolic Panel, Plasma (05/31/2024 2:56 AM EDT) Only the most recent of2 resultswithin the time period is included. Glucose, Plasma 206(H) 74 - 99 mg/dL 05/31/2024 3:45 AM EDT [facility] BUN, Plasma 22 8 - 23 mg/dL 05/31/2024 3:45 AM EDT [facility] Creatinine, Plasma 1.14(H) 0.60 - 1.10 mg/dL 05/31/2024 3:45 AM EDT [facility] BUN/Creatinine Ratio 19 05/31/2024 3:45 AM EDT [facility] Sodium, Plasma 131(L) 136 - 145 mmol/L 05/31/2024 3:45 AM EDT [facility] Potassium, Plasma 3.9 3.6 - 4.9 mmol/L 05/31/2024 3:45 AM EDT [facility] Chloride, Plasma 94(L) 97 - 107 mmol/L 05/31/2024 3:45 AM EDT [facility] CO2, Plasma 26 22 - 29 mmol/L 05/31/2024 3:45 AM EDT [facility] Anion Gap 11 6 - 16 mmol/L 05/31/2024 3:45 AM EDT [facility] Total Calcium, Plasma 9.2 8.9 - 10.2 mg/dL 05/31/2024 3:45 AM EDT [facility] Total Protein 6.7 6.3 - 7.9 g/dL 05/31/2024 3:45 AM EDT [facility] Albumin, Plasma 3.3(L) 3.5 - 5.2 g/dL 05/31/2024 3:45 AM EDT [facility] AST, Plasma 30 10 - 35 U/L 05/31/2024 3:45 AM EDT [facility] ALT, Plasma 18 10 - 35 U/L 05/31/2024 3:45 AM EDT [facility] Alkaline Phosphatase, Plasma 84 46 - 142 U/L 05/31/2024 3:45 AM EDT [facility] Total Bilirubin, Plasma 0.5 0.2 - 1.1 mg/dL 05/31/2024 3:45 AM EDT [facility] eGFRcr 47.3 mL/min/1.7 3m*2 05/31/2024 3:45 AM EDT [facility] Comment:Reported eGFRcr in m L/min/1.73m2 is based the CKD-EPI 2020 equation that does not use a race coefficient. Blood Venous blood specimen / Unknown Venipuncture / Unknown 05/31/2024 2:56 AM EDT 05/31/2024 3:10 AM EDT us Mimi Lozada DO LAB BLOOD ORDERABLES Fin al Result [facility] [address] [place] [address] * ECHO, ADULT TRANSTHORACIC COMPLETE (05/30/2024 10:20 AM EDT) BSA 1.83 m2 OLIVER ISCV Height 157.5 OLIVER ISCV Weight 82.1 OLIVER ISCV LVIDd 36 mm OLIVER ISCV IVSd 9 mm OLIVER ISCV LVPWd 8 mm OLIVER ISCV LV MASS(C)D 77 g OLIVER ISCV LV RWT 0.47 mm OLIVER ISCV LVIDs 16 mm OLIVER ISCV LA dimension 36 mm OLIVER ISCV LAV(MOD-4ch) 22 mL OLIVER ISCV RA MOD 4Ch 33 mL OLIVER ISCV SOTERO 18 mL/m2 OLIVER ISCV RV base 31 mm OLIVER ISCV RV Mid 28 mm OLIVER ISCV RV Length 55 mm OLIVER ISCV LAV(MOD-bp) Indexed 23 mL/m2 OLIVER ISCV LAV(MOD-2ch) 62 mL OLIVER ISCV LV EDV(MOD-4ch) 61 mL OLIVER ISCV LV ESV(MOD4ch) 24 mL OLIVER ISCV EF(MOD-sp4) 61 % OLIVER ISCV LV EDV(MOD-2ch) 57 mL OLIVER ISCV EDV(MOD-bp) 59 mL OLIVER ISCV LV ESV(MOD2ch) 22 mL OLIVER ISCV EF(MOD-sp2) 61 % OLIVER ISCV ESV(MOD-bp) 23 mL OLIVER ISCV EF(MOD-bp) 61 % OLIVER ISCV LVLs ap2 5.7 mm OLIVER ISCV TAPSE 17 mm OLIVER ISCV RV s' Winston 20.7 cm/s OLIVER ISCV TR Vmax 180.9 cm/s OLIVER ISCV TR Max PG 13 mmHG OLIVER ISCV IVC Max Size 11 mm OLIVER ISCV RVSP 16 mmHg OLIVER ISCV RAP systole 3 mmHg OLIVER ISCV MV V2 VTI 27.9 cm OLIVER ISCV MV MG 4 mmHg OLIVER ISCV MV V2 max 187.4 cm/s OLIVER ISCV MV max PG 14 mmHg OLIVER ISCV LV V1 VTI 16.3 cm OLIVER ISCV LV V1 Vmax 97.3 cm/s OLIVER ISCV LV mean PG 1.4 mmHG OLIVER ISCV LV V1 mean 53.8 cm/sec OLIVER ISCV LV max PG 3.8 mmHg OLIVER ISCV Ao V2 VTI 21.3 cm OLIVER ISCV Ao mean PG 4 mmHg OLIVER ISCV Ao V2 Vmax 134.7 cm/s OLIVER ISCV Ao max PG 7 mmHg OLIVER ISCV AV VTI Index 0.77 OLIVER ISCV Ao V2 mean 90.7 cm/s OLIVER ISCV Ao Root Diam 27 mm OLIVER ISCV Asc Ao Diam 34 mm OLIVER ISCV MPA diam 16 mm OLIVER ISCV MPA area 2.0 cm2 OLIVER ISCV MV E Vmax 62.2 cm/s OLIVER ISCV MV A Vmax 150.4 cm/s OLIVER ISCV MV E/A 0.4 cm/s OLIVER ISCV LV Lat e' Velocity 5.5 cm/s OLIVER ISCV Lat E/e' 11.3 OLIVER ISCV LV Sept e' Winston 3.9 cm/s OLIVER ISCV Sep E/e' 15.9 OLIVER ISCV Avg E/e' 13.6 OLIVER ISCV Anatomical Region Laterality Modality Echocardiography Narrative 05/30/2024 5:09 PM EDT Left Ventricle: Based on the linear dimension and/or 2D volumes, the left ventricle is small in size. There is normal left ventricular myocardial thickness and mass. The left ventricular systolic function is normal. The LVEF as measured by biplane volume is 61%. The left ventricular filling pressure is normal. Right Ventricle: The right ventricle is normal in size. The right ventricular systolic function is normal. Aortic Valve: There is a transcatheter bioprosthetic valve that is well-seated. The bioprosthetic leaflets are thin and move normally. There is no valvular regurgitation. There is no paravalvular leak. The peak gradient is 7 mmHg. The mean gradient is 4 mmHg. The gradient is normal for this prosthetic valve. Pericardium: No pericardial effusion. Compared to the most recently available prior study, and allowing for differences in image quality and technique, there is no significant interval change noted. Left Ventricle Based on the linear dimension and/or 2D volumes, the left ventricle is small in size. There is normal left ventricular myocardial thickness and mass. No left ventricular mass or thrombus is seen. The left ventricular systolic function is normal. The LVEF as measured by biplane volume is 61%. The peak intracavitary gradient is 52 mmHg. The left ventricular filling pressure is normal. The left ventricular wall motion is normal. Right Ventricle The right ventricle is normal in size. The right ventricular systolic function is normal. Right ventricular systolic pressure is normal (<35mmHg). Left Atrium The left atrial size is normal with an indexed volume of 16-34 mL/m2. The interatrial septum is intact with no evidence for an atrial septal defect. Right Atrium The right atrial volume index is normal (18-32mL/m2). IVC/SVC Based on the IVC size and respiratory variation, the estimated right atrial pressure is 3mmHg. Mitral Valve There is severe mitral annular calcification. The mitral valve chordae are thickened and/or calcified. There is trace mitral regurgitation. There is no significant mitral stenosis. The mean mitral valve pressure gradient is estimated to be 4 mmHg at a heart rate of 86 bpm. Tricuspid Valve The tricuspid valve is grossly normal in appearance. There is trace tricuspid regurgitation. There is no tricuspid stenosis. Aortic Valve There is a transcatheter bioprosthetic valve that is well-seated. The bioprosthetic leaflets are thin and move normally. There is no valvular regurgitation. There is no paravalvular leak. The peak gradient is 7 mmHg. The mean gradient is 4 mmHg. The gradient is normal for this prosthetic valve. Pulmonic Valve The pulmonic valve was not well visualized. There is trace pulmonic regurgitation. There is no pulmonic stenosis. Pericardium Evidence of epicardial fat. No pericardial effusion. Great Vessels The aortic root is normal in size. The sinus of Valsalva (aortic root) diameter is 27 mm by leading edge to leading edge method. In the maximally visualized portion, the ascending aorta appears normal in size. The ascending aorta diameter is 34 mm. The aortic arch is not well visualized. The main pulmonary artery is normal in size. The main pulmonary artery diameter is 16 mm. Study Details A complete transthoracic echocardiogram using two-dimensional (2D), m-mode, color and spectral flow Doppler imaging was performed. Overall the study quality was adequate. Height: 157.5 cm. Weight: 82.1 kg. BSA: 1.83 m2. Study Recommendation Compared to the most recently available prior study, and allowing for differences in image quality and technique, there is no significant interval change noted. us Javi Damon MD CV ECHO PROCEDURES Final Resu lt * (ABNORMAL) Basic metabolic panel (05/30/2024 2:47 AM EDT) Glucose, Plasma 154(H) 74 - 99 mg/dL 05/30/2024 3:58 AM EDT [facility] BUN, Plasma 24(H) 8 - 23 mg/dL 05/30/2024 3:58 AM EDT [facility] Creatinine, Plasma 1.15(H) 0.60 - 1.10 mg/dL 05/30/2024 3:58 AM EDT [facility] BUN/Creatinine Ratio 21 05/30/2024 3:58 AM EDT [facility] Sodium, Plasma 141 136 - 145 mmol/L 05/30/2024 3:58 AM EDT [facility] Potassium, Plasma 3.8 3.6 - 4.9 mmol/L 05/30/2024 3:58 AM EDT [facility] Chloride, Plasma 95(L) 97 - 107 mmol/L 05/30/2024 3:58 AM EDT [facility] CO2, Plasma 30(H) 22 - 29 mmol/L 05/30/2024 3:58 AM EDT [facility] Anion Gap 16 6 - 16 mmol/L 05/30/2024 3:58 AM EDT [facility] Total Calcium, Plasma 9.5 8.9 - 10.2 mg/dL 05/30/2024 3:58 AM EDT [facility] [facility] eGFRcr 46.8 mL/min/1.7 3m*2 05/30/2024 3:58 AM EDT [facility] Comment:Reported eGFRcr in m L/min/1.73m2 is based the CKD-EPI 2020 equation that does not use a race coefficient. Blood Venous blood specimen / Unknown Venipuncture / Unknown 05/30/2024 2:47 AM EDT 05/30/2024 3:22 AM EDT [facility] BLOOD ORDERABLES Fin al Result Performing Organization Address City/[facility]/[place] [address] * Streptococcus pneumoniae and Legionella Urinary Antigen (05/29/2024 4:45 PM EDT) [facility] Legionella pneumophila serogroup 1 Antigen Result (Urine) Negative Negative 05/30/2024 7:08 AM EDT [facility] Streptococcus pneumoniae Antigen Result (Urine) Negative Negative 05/30/2024 7:08 AM EDT [facility] Urine Urine specimen obtained by clean catch procedure / Unknown Non-blood Collection / Unknown 05/29/2024 4:45 PM EDT 05/29/2024 5:19 PM EDT [facility] MICROBIOLOGY - GENER AL ORDERABLES Final Result Performing Organization Address [facility] [place] [address] * (ABNORMAL) Nasopharyngeal Respiratory Panel (05/29/2024 3:29 PM EDT) [facility] Human Metapneumovirus PCR Result Detected( A) Not Detected 05/29/2024 6:07 PM EDT [facility] Swab Nasopharyngeal structure / Unknown Non-blood Collection / Unknown 05/29/2024 3:29 PM EDT 05/29/2024 4:11 PM EDT Narrative [facility] - 05/29/2024 6:07 PM EDT This assay can detect Adenovirus, Coronavirus, Human Metapneumovirus, Human Rhino/Enterovirus, Influenza A, Influenza A H1, Influenza A H1 2009, Influenza A H3, Influenza B, Parainfluenza Virus 1, Parainfluenza Virus 2, Parainfluenza Virus 3, Parainfluenza Virus 4, Respiratory Syncytial Virus A, Respiratory Syncytial Virus B, Chlamydia pneumoniae, and Mycoplasma pneumoniae. Note: This assay does NOT detect SARS/CoV, novel Coronavirus 2019-nCoV, Bordetella pertussis or Bordetella parapertussis. Nasopharyngeal Respiratory PCR Panel is performed using the [employer] ePlex instrument. This test is FDA approved for use with Nasopharyngeal swabs only. This test is used for clinical purposes. It should not be regarded as investigational or for research. The [facility] Clinical Microbiology Laboratory is certified under the Clinical Laboratory Improvement Amendments of 1988 (CLIA-88) as qualified to perform high complexity clinical laboratory testing. Mimi Lozada DO LAB MICROBIOLOGY - GENER AL ORDERABLES Final Result [facility] [address] [place] [address] * XR Chest 1 View (05/29/2024 1:10 PM EDT) Anatomical Region Laterality Modality Chest Digital Radiogra phy Impressions 05/29/2024 2:52 PM EDT Increased interstitial markings. Retrocardiac opacities. Findings could be related to pulmonary congestion/edema although superimposed airspace disease would also be a consideration in the correct clinical setting. CRITICAL RESULT: No. COMMUNICATION: Per this written report. Drafted by Erika Waldrop MD on 05/29/2024 2:49 PM Final report signed by Erika Waldrop MD on 05/29/2024 2:52 PM Narrative 05/29/2024 2:52 PM EDT CLINICAL INDICATION: concern for pna TECHNIQUE: XR CHEST 1 VIEW COMPARISON: July 01, 2019. FINDINGS: Unchanged elevation of the right hemidiaphragm. Increased interstitial markings. Retrocardiac opacities. No large pleural effusion or pneumothorax. Cardiac mediastinal silhouette is unchanged. Redemonstration of prior cardiac valve replacement. No acute osseous abnormalities. Loop recorder device is seen overlying the left cardiac silhouette. Procedure Note Erika Waldrop MD - 05/29/2024 CLINICAL INDICATION: concern for pna TECHNIQUE: XR CHEST 1 VIEW COMPARISON: July 01, 2019. FINDINGS: Unchanged elevation of the right hemidiaphragm. Increased interstitialmarkings. Retrocardiac opacities. No large pleural effusion orpneumothorax. Cardiac mediastinal silhouette is unchanged. Redemonstrationof prior cardiac valve replacement. No acute osseous abnormalities. Looprecorder device is seen overlying the left cardiac silhouette. IMPRESSION: Increased interstitial markings. Retrocardiac opacities. Findings could berelated to pulmonary congestion/edema although superimposed airspacedisease would also be a consideration in the correct clinical setting. CRITICAL RESULT: No. COMMUNICATION: Per this written report. Drafted by Erika Waldrop MD on 05/29/2024 2:49 PM Final report signed by Erika Waldrop MD on 05/29/2024 2:52 PM us Mimi Lozada DO IMG XR PROCEDURES Final Result * CT Lumbar Spine wo IV Contrast (05/29/2024 4:07 AM EDT) Anatomical Region Laterality Modality Spine, L-spine Computed Tomogra phy Impressions 05/29/2024 4:54 AM EDT 1. Fracture of the base of the spinous process of C5 extending into the bilateral lamina. There is also a fracture of the base of the C6 bifid spinous process which extends into the right aspect of the spinous process. Nondisplaced fracture of the right C6 lamina. 2. No acute fracture or malalignment of the thoracic spine. 3. No acute fracture or malalignment of the lumbar spine. 4. Multifocal bilateral groundglass opacities on a background of fibrosis. Possibly representing infection or aspiration. Patchy ground glass opacities in lungs and some reticular markings possibly atypical infection. Mitral valve annulus calcifications and aortic valve stent. Other differentials could include edema. There is also bronchial wall thickening and some opacified airways possibly mucous plugging. CRITICAL RESULT: No. COMMUNICATION: Cervical spine findings were discussed via Mai Monsivais MD with SWAPNA MERCADO on 05/29/2024 4:48 AM by Abdulaziz Zamorano MD with acknowledgment of the results.. Preliminary report signed by Abdulaziz Zamorano MD on 05/29/2024 4:48 AM By electronically signing this report, I, the attending physician, attest that I have personally reviewed the images/data for the above examination(s) and agree with the final edited report. Drafted by Abdulaziz Zamorano MD on 05/29/2024 4:15 AM Final report signed by Jass Garcia MD on 05/29/2024 4:54 AM Narrative 05/29/2024 4:54 AM EDT CLINICAL INDICATION: Ground level fall; known C5, C6 fx. TECHNIQUE: Imaging of the entire cervical, thoracic, and lumbar spine was performed, using spiral technique, without contrast administration. Reformatted images in the coronal and sagittal planes were generated from the axial data set to facilitate diagnostic accuracy and/or surgical planning. Total DLP (Dose-Length Product): 2165 mGy*cm. Please note: The reported value represents the total of one or more individual components during the CT acquisition on this date and at this time, and as such, the same value may appear in more than one CT report depending on the interpreting/reporting physicians. COMPARISON: CT C-spine, 05/28/2024. CTA neck, 12/25/2021. CTA chest, abdomen and pelvis, 05/06/2019 FINDINGS: Cervical Spine: Vertebrae: Fracture of the base of the spinous process of C5 extending into the bilateral lamina. There is also a fracture of the base of the C6 bifid spinous process which extends into the right aspect of the spinous process. Nondisplaced fracture of the right C6 lamina. Alignment: No traumatic malalignment. There is mild anterolisthesis of C4 on C5 and C7 on T1. There is loss of disc space at C5-C6 and C6-C7. Posterior disc extrusion at C4-C5. Multilevel bilateral facet arthropathy, greater on the left. Paraspinal Soft Tissues: No paraspinal hematoma. Lung Apices: No pneumothorax at the lung apices. Thoracic Spine: Vertebrae: No acute fracture. Multilevel degenerative changes including fusion of T10 and T11 vertebral bodies. Alignment: No traumatic malalignment. Mild degenerative listhesis in the cervical and upper thoracic spine. Associated with facet arthritis. Paraspinal Soft Tissues: No paraspinal hematoma. Other: Multifocal bilateral groundglass opacities on a background of fibrosis. Coronary and aortic calcification. Aortic valve replacement and mitral valve replacement. Calcification versus LAD stent. 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 Lumbar Spine: Vertebrae: No acute fracture. Multilevel degenerative changes, greatest at L1-L2 and L5-S1 with endplate changes. Multilevel bilateral facet arthropathy. Alignment: No traumatic malalignment. Mild degenerative anterolisthesis of L4 on L5. Diverticulosis of the sigmoid colon. Tubal ligation clips. Paraspinal Soft Tissues: No paraspinal hematoma. Other: Bilateral tubal ligation. Distended bladder. Aortoiliac calcification. Procedure Note Jass Garcia MD - 05/29/2024 CLINICAL INDICATION: Ground level fall; known C5, C6 fx. TECHNIQUE: Imaging of the entire cervical, thoracic, and lumbar spine was performed,using spiral technique, without contrast administration. Reformattedimages in the coronal and sagittal planes were generated from the axialdata set to facilitate diagnostic accuracy and/or surgical planning. Total DLP (Dose-Length Product): 2165 mGy*cm. Please note: The reportedvalue represents the total of one or more individual components during theCT acquisition on this date and at this time, and as such, the same valuemay appear in more than one CT report depending on theinterpreting/reporting physicians. COMPARISON: CT C-spine, 05/28/2024. CTA neck, 12/25/2021. CTA chest, abdomen and pelvis,05/06/2019 FINDINGS: Cervical Spine: Vertebrae: Fracture of the base of the spinous process of C5 extendinginto the bilateral lamina. There is also a fracture of the base of the [id number] spinous process which extends into the right aspect of the spinousprocess. Nondisplaced fracture of the right C6 lamina. Alignment: No traumatic malalignment. There is mild anterolisthesis of C4on C5 and C7 on T1. There is loss of disc space at C5-C6 and C6-C7.Posterior disc extrusion at C4-C5. Multilevel bilateral facet arthropathy,greater on the left. Paraspinal Soft Tissues: No paraspinal hematoma. Lung Apices: No pneumothorax at the lung apices. Thoracic Spine: Vertebrae: No acute fracture. Multilevel degenerative changes includingfusion of T10 and T11 vertebral bodies. Alignment: No traumatic malalignment. Mild degenerative listhesis in thecervical and upper thoracic spine. Associated with facet arthritis. Paraspinal Soft Tissues: No paraspinal hematoma. Other: Multifocal bilateral groundglass opacities on a background offibrosis. Coronary and aortic calcification. Aortic valve replacement andmitral valve replacement. Calcification versus LAD stent. Absentgallbladder with post cholecystectomy ductal ectasia. Lumbar Spine: Vertebrae: No acute fracture. Multilevel degenerative changes, greatest atL1-L2 and L5-S1 with endplate changes. Multilevel bilateral facetarthropathy. Alignment: No traumatic malalignment. Mild degenerative anterolisthesis ofL4 on L5. Diverticulosis of the sigmoid colon. Tubal ligation clips. Paraspinal Soft Tissues: No paraspinal hematoma. Other: Bilateral tubal ligation. Distended bladder. Aortoiliaccalcification. IMPRESSION: 1. Fracture of the base of the spinous process of C5 extending into thebilateral lamina. There is also a fracture of the base of the C6 bifidspinous process which extends into the right aspect of the spinousprocess. Nondisplaced fracture of the right C6 lamina. 2. No acute fracture or malalignment of the thoracic spine. 3. No acute fracture or malalignment of the lumbar spine. 4. Multifocal bilateral groundglass opacities on a background of fibrosis.Possibly representing infection or aspiration. Patchy ground glassopacities in lungs and some reticular markings possibly atypicalinfection. Mitral valve annulus calcifications and aortic valve stent. Otherdifferentials could include edema. There is also bronchial wall thickening and some opacified airwayspossibly mucous plugging. CRITICAL RESULT: No. COMMUNICATION: Cervical spine findings were discussed via Mai Monsivais MD with NU on 05/29/2024 4:48 AM by Abdulaziz Zamorano MD with acknowledgment of theresults.. Preliminary report signed by Abdulaziz Zamorano MD on 05/29/2024 4:48 AM By electronically signing this report, I, the attending physician, attestthat I have personally reviewed the images/data for the aboveexamination(s) and agree with the final edited report. Drafted by Abdulaziz Zamorano MD on 05/29/2024 4:15 AM Final report signed by Jass Garcia MD on 05/29/2024 4:54 AM Swapna Mercdao MD IMG CT PROCEDURES Final Result * CT Thoracic Spine wo IV Contrast (05/29/2024 4:07 AM EDT) Anatomical Region Laterality Modality Spine, T-spine Computed Tomogra phy Impressions 05/29/2024 4:54 AM EDT 1. Fracture of the base of the spinous process of C5 extending into the bilateral lamina. There is also a fracture of the base of the C6 bifid spinous process which extends into the right aspect of the spinous process. Nondisplaced fracture of the right C6 lamina. 2. No acute fracture or malalignment of the thoracic spine. 3. No acute fracture or malalignment of the lumbar spine. 4. Multifocal bilateral groundglass opacities on a background of fibrosis. Possibly representing infection or aspiration. Patchy ground glass opacities in lungs and some reticular markings possibly atypical infection. Mitral valve annulus calcifications and aortic valve stent. Other differentials could include edema. There is also bronchial wall thickening and some opacified airways possibly mucous plugging. CRITICAL RESULT: No. COMMUNICATION: Cervical spine findings were discussed via Mai Monsivais MD with SWAPNA MERCADO on 05/29/2024 4:48 AM by Abdulaziz Zamorano MD with acknowledgment of the results.. Preliminary report signed by Abdulaziz Zamorano MD on 05/29/2024 4:48 AM By electronically signing this report, I, the attending physician, attest that I have personally reviewed the images/data for the above examination(s) and agree with the final edited report. Drafted by Abdulaziz Zamorano MD on 05/29/2024 4:15 AM Final report signed by Jass Garcia MD on 05/29/2024 4:54 AM Narrative 05/29/2024 4:54 AM EDT CLINICAL INDICATION: Ground level fall; known C5, C6 fx. TECHNIQUE: Imaging of the entire cervical, thoracic, and lumbar spine was performed, using spiral technique, without contrast administration. Reformatted images in the coronal and sagittal planes were generated from the axial data set to facilitate diagnostic accuracy and/or surgical planning. Total DLP (Dose-Length Product): 2165 mGy*cm. Please note: The reported value represents the total of one or more individual components during the CT acquisition on this date and at this time, and as such, the same value may appear in more than one CT report depending on the interpreting/reporting physicians. COMPARISON: CT C-spine, 05/28/2024. CTA neck, 12/25/2021. CTA chest, abdomen and pelvis, 05/06/2019 FINDINGS: Cervical Spine: Vertebrae: Fracture of the base of the spinous process of C5 extending into the bilateral lamina. There is also a fracture of the base of the C6 bifid spinous process which extends into the right aspect of the spinous process. Nondisplaced fracture of the right C6 lamina. Alignment: No traumatic malalignment. There is mild anterolisthesis of C4 on C5 and C7 on T1. There is loss of disc space at C5-C6 and C6-C7. Posterior disc extrusion at C4-C5. Multilevel bilateral facet arthropathy, greater on the left. Paraspinal Soft Tissues: No paraspinal hematoma. Lung Apices: No pneumothorax at the lung apices. Thoracic Spine: Vertebrae: No acute fracture. Multilevel degenerative changes including fusion of T10 and T11 vertebral bodies. Alignment: No traumatic malalignment. Mild degenerative listhesis in the cervical and upper thoracic spine. Associated with facet arthritis. Paraspinal Soft Tissues: No paraspinal hematoma. Other: Multifocal bilateral groundglass opacities on a background of fibrosis. Coronary and aortic calcification. Aortic valve replacement and mitral valve replacement. Calcification versus LAD stent. 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 Lumbar Spine: Vertebrae: No acute fracture. Multilevel degenerative changes, greatest at L1-L2 and L5-S1 with endplate changes. Multilevel bilateral facet arthropathy. Alignment: No traumatic malalignment. Mild degenerative anterolisthesis of L4 on L5. Diverticulosis of the sigmoid colon. Tubal ligation clips. Paraspinal Soft Tissues: No paraspinal hematoma. Other: Bilateral tubal ligation. Distended bladder. Aortoiliac calcification. Procedure Note Jass Garcia MD - 05/29/2024 CLINICAL INDICATION: Ground level fall; known C5, C6 fx. TECHNIQUE: Imaging of the entire cervical, thoracic, and lumbar spine was performed,using spiral technique, without contrast administration. Reformattedimages in the coronal and sagittal planes were generated from the axialdata set to facilitate diagnostic accuracy and/or surgical planning. Total DLP (Dose-Length Product): 2165 mGy*cm. Please note: The reportedvalue represents the total of one or more individual components during theCT acquisition on this date and at this time, and as such, the same valuemay appear in more than one CT report depending on theinterpreting/reporting physicians. COMPARISON: CT C-spine, 05/28/2024. CTA neck, 12/25/2021. CTA chest, abdomen and pelvis,05/06/2019 FINDINGS: Cervical Spine: Vertebrae: Fracture of the base of the spinous process of C5 extendinginto the bilateral lamina. There is also a fracture of the base of the [id number] spinous process which extends into the right aspect of the spinousprocess. Nondisplaced fracture of the right C6 lamina. Alignment: No traumatic malalignment. There is mild anterolisthesis of C4on C5 and C7 on T1. There is loss of disc space at C5-C6 and C6-C7.Posterior disc extrusion at C4-C5. Multilevel bilateral facet arthropathy,greater on the left. Paraspinal Soft Tissues: No paraspinal hematoma. Lung Apices: No pneumothorax at the lung apices. Thoracic Spine: Vertebrae: No acute fracture. Multilevel degenerative changes includingfusion of T10 and T11 vertebral bodies. Alignment: No traumatic malalignment. Mild degenerative listhesis in thecervical and upper thoracic spine. Associated with facet arthritis. Paraspinal Soft Tissues: No paraspinal hematoma. Other: Multifocal bilateral groundglass opacities on a background offibrosis. Coronary and aortic calcification. Aortic valve replacement andmitral valve replacement. Calcification versus LAD stent. Absentgallbladder with post cholecystectomy ductal ectasia. Lumbar Spine: Vertebrae: No acute fracture. Multilevel degenerative changes, greatest atL1-L2 and L5-S1 with endplate changes. Multilevel bilateral facetarthropathy. Alignment: No traumatic malalignment. Mild degenerative anterolisthesis ofL4 on L5. Diverticulosis of the sigmoid colon. Tubal ligation clips. Paraspinal Soft Tissues: No paraspinal hematoma. Other: Bilateral tubal ligation. Distended bladder. Aortoiliaccalcification. IMPRESSION: 1. Fracture of the base of the spinous process of C5 extending into thebilateral lamina. There is also a fracture of the base of the C6 bifidspinous process which extends into the right aspect of the spinousprocess. Nondisplaced fracture of the right C6 lamina. 2. No acute fracture or malalignment of the thoracic spine. 3. No acute fracture or malalignment of the lumbar spine. 4. Multifocal bilateral groundglass opacities on a background of fibrosis.Possibly representing infection or aspiration. Patchy ground glassopacities in lungs and some reticular markings possibly atypicalinfection. Mitral valve annulus calcifications and aortic valve stent. Otherdifferentials could include edema. There is also bronchial wall thickening and some opacified airwayspossibly mucous plugging. CRITICAL RESULT: No. COMMUNICATION: Cervical spine findings were discussed via Mai Monsivais MD with NU on 05/29/2024 4:48 AM by Abdulaziz Zamorano MD with acknowledgment of theresults.. Preliminary report signed by Abdulaziz Zamorano MD on 05/29/2024 4:48 AM By electronically signing this report, I, the attending physician, attestthat I have personally reviewed the images/data for the aboveexamination(s) and agree with the final edited report. Drafted by Abdulaziz Zamorano MD on 05/29/2024 4:15 AM Final report signed by Jass Garcia MD on 05/29/2024 4:54 AM Swapna Mercado MD IMG CT PROCEDURES Final Result * CT Cervical Spine wo IV Contrast (05/29/2024 4:07 AM EDT) Anatomical Region Laterality Modality Spine, C-spine Computed Tomogra phy Impressions 05/29/2024 4:54 AM EDT 1. Fracture of the base of the spinous process of C5 extending into the bilateral lamina. There is also a fracture of the base of the C6 bifid spinous process which extends into the right aspect of the spinous process. Nondisplaced fracture of the right C6 lamina. 2. No acute fracture or malalignment of the thoracic spine. 3. No acute fracture or malalignment of the lumbar spine. 4. Multifocal bilateral groundglass opacities on a background of fibrosis. Possibly representing infection or aspiration. Patchy ground glass opacities in lungs and some reticular markings possibly atypical infection. Mitral valve annulus calcifications and aortic valve stent. Other differentials could include edema. There is also bronchial wall thickening and some opacified airways possibly mucous plugging. CRITICAL RESULT: No. COMMUNICATION: Cervical spine findings were discussed via Mai Monsivais MD with SWAPNA MERCADO on 05/29/2024 4:48 AM by Abdulaziz Zamorano MD with acknowledgment of the results.. Preliminary report signed by Abdulaziz Zamorano MD on 05/29/2024 4:48 AM By electronically signing this report, I, the attending physician, attest that I have personally reviewed the images/data for the above examination(s) and agree with the final edited report. Drafted by Abdulaziz Zamorano MD on 05/29/2024 4:15 AM Final report signed by Jass Garcia MD on 05/29/2024 4:54 AM Narrative 05/29/2024 4:54 AM EDT CLINICAL INDICATION: Ground level fall; known C5, C6 fx. TECHNIQUE: Imaging of the entire cervical, thoracic, and lumbar spine was performed, using spiral technique, without contrast administration. Reformatted images in the coronal and sagittal planes were generated from the axial data set to facilitate diagnostic accuracy and/or surgical planning. Total DLP (Dose-Length Product): 2165 mGy*cm. Please note: The reported value represents the total of one or more individual components during the CT acquisition on this date and at this time, and as such, the same value may appear in more than one CT report depending on the interpreting/reporting physicians. COMPARISON: CT C-spine, 05/28/2024. CTA neck, 12/25/2021. CTA chest, abdomen and pelvis, 05/06/2019 FINDINGS: Cervical Spine: Vertebrae: Fracture of the base of the spinous process of C5 extending into the bilateral lamina. There is also a fracture of the base of the C6 bifid spinous process which extends into the right aspect of the spinous process. Nondisplaced fracture of the right C6 lamina. Alignment: No traumatic malalignment. There is mild anterolisthesis of C4 on C5 and C7 on T1. There is loss of disc space at C5-C6 and C6-C7. Posterior disc extrusion at C4-C5. Multilevel bilateral facet arthropathy, greater on the left. Paraspinal Soft Tissues: No paraspinal hematoma. Lung Apices: No pneumothorax at the lung apices. Thoracic Spine: Vertebrae: No acute fracture. Multilevel degenerative changes including fusion of T10 and T11 vertebral bodies. Alignment: No traumatic malalignment. Mild degenerative listhesis in the cervical and upper thoracic spine. Associated with facet arthritis. Paraspinal Soft Tissues: No paraspinal hematoma. Other: Multifocal bilateral groundglass opacities on a background of fibrosis. Coronary and aortic calcification. Aortic valve replacement and mitral valve replacement. Calcification versus LAD stent. 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 Lumbar Spine: Vertebrae: No acute fracture. Multilevel degenerative changes, greatest at L1-L2 and L5-S1 with endplate changes. Multilevel bilateral facet arthropathy. Alignment: No traumatic malalignment. Mild degenerative anterolisthesis of L4 on L5. Diverticulosis of the sigmoid colon. Tubal ligation clips. Paraspinal Soft Tissues: No paraspinal hematoma. Other: Bilateral tubal ligation. Distended bladder. Aortoiliac calcification. Procedure Note Jass Garcia MD - 05/29/2024 CLINICAL INDICATION: Ground level fall; known C5, C6 fx. TECHNIQUE: Imaging of the entire cervical, thoracic, and lumbar spine was performed,using spiral technique, without contrast administration. Reformattedimages in the coronal and sagittal planes were generated from the axialdata set to facilitate diagnostic accuracy and/or surgical planning. Total DLP (Dose-Length Product): 2165 mGy*cm. Please note: The reportedvalue represents the total of one or more individual components during theCT acquisition on this date and at this time, and as such, the same valuemay appear in more than one CT report depending on theinterpreting/reporting physicians. COMPARISON: CT C-spine, 05/28/2024. CTA neck, 12/25/2021. CTA chest, abdomen and pelvis,05/06/2019 FINDINGS: Cervical Spine: Vertebrae: Fracture of the base of the spinous process of C5 extendinginto the bilateral lamina. There is also a fracture of the base of the T3yejtb spinous process which extends into the right aspect of the spinousprocess. Nondisplaced fracture of the right C6 lamina. Alignment: No traumatic malalignment. There is mild anterolisthesis of C4on C5 and C7 on T1. There is loss of disc space at C5-C6 and C6-C7.Posterior disc extrusion at C4-C5. Multilevel bilateral facet arthropathy,greater on the left. Paraspinal Soft Tissues: No paraspinal hematoma. Lung Apices: No pneumothorax at the lung apices. Thoracic Spine: Vertebrae: No acute fracture. Multilevel degenerative changes includingfusion of T10 and T11 vertebral bodies. Alignment: No traumatic malalignment. Mild degenerative listhesis in thecervical and upper thoracic spine. Associated with facet arthritis. Paraspinal Soft Tissues: No paraspinal hematoma. Other: Multifocal bilateral groundglass opacities on a background offibrosis. Coronary and aortic calcification. Aortic valve replacement andmitral valve replacement. Calcification versus LAD stent. Absentgallbladder with post cholecystectomy ductal ectasia. Lumbar Spine: Vertebrae: No acute fracture. Multilevel degenerative changes, greatest atL1-L2 and L5-S1 with endplate changes. Multilevel bilateral facetarthropathy. Alignment: No traumatic malalignment. Mild degenerative anterolisthesis ofL4 on L5. Diverticulosis of the sigmoid colon. Tubal ligation clips. Paraspinal Soft Tissues: No paraspinal hematoma. Other: Bilateral tubal ligation. Distended bladder. Aortoiliaccalcification. IMPRESSION: 1. Fracture of the base of the spinous process of C5 extending into thebilateral lamina. There is also a fracture of the base of the C6 bifidspinous process which extends into the right aspect of the spinousprocess. Nondisplaced fracture of the right C6 lamina. 2. No acute fracture or malalignment of the thoracic spine. 3. No acute fracture or malalignment of the lumbar spine. 4. Multifocal bilateral groundglass opacities on a background of fibrosis.Possibly representing infection or aspiration. Patchy ground glassopacities in lungs and some reticular markings possibly atypicalinfection. Mitral valve annulus calcifications and aortic valve stent. Otherdifferentials could include edema. There is also bronchial wall thickening and some opacified airwayspossibly mucous plugging. CRITICAL RESULT: No. COMMUNICATION: Cervical spine findings were discussed via Mai Monsivais MD with NU on 05/29/2024 4:48 AM by Abdulaziz Zamorano MD with acknowledgment of theresults.. Preliminary report signed by Abdulaziz Zamorano MD on 05/29/2024 4:48 AM By electronically signing this report, I, the attending physician, attestthat I have personally reviewed the images/data for the aboveexamination(s) and agree with the final edited report. Drafted by Abdulaziz Zamorano MD on 05/29/2024 4:15 AM Final report signed by Jass Garcia MD on 05/29/2024 4:54 AM Swapna Mercado MD IMG CT PROCEDURES Final Result * CT Angio Neck (05/29/2024 4:07 AM EDT) Anatomical Region Laterality Modality Carotid Artery Computed Tomogra phy Impressions 05/29/2024 4:43 AM EDT No evidence of vascular injury or occlusion in the neck. Diffuse right greater than left reticular and groundglass opacities in the partially visualized lung apices, which could represent pulmonary infection. Degenerative changes in the cervical spine and upper thoracic spine with degenerative listhesis. Fractures at the posterior elements of C5 and C6. C5 the spinous process and extending to the left lamina. C6 spinous process fracture. Mild arteriosclerotic irregularity and narrowing of the left more than right the internal carotid artery origin. Mild narrowing of the origin of the left vertebral artery. CRITICAL RESULT: No. COMMUNICATION: Per this written report. - By electronically signing this report, I, the attending physician, attest that I have personally reviewed the images/data for the above examination(s) and agree with the final edited report. Drafted by Reinaldo Velazquez MD on 05/29/2024 4:27 AM Final report signed by Jass Garcia MD on 05/29/2024 4:43 AM Narrative 05/29/2024 4:43 AM EDT CLINICAL INDICATION: Ground level fall; known C5, C6 fx. At OSH, CT scan demonstrated acute fractures of C5 and C6. P TECHNIQUE: Contrast-enhanced CT angiogram of the neck was obtained after administration of intravenous iodinated contrast using 0.6 mm axial slice thickness with multiplanar reformations and maximum intensity projections. In addition, 3D images were created and reviewed. Total DLP (Dose-Length Product): 2164.95 mGy.cm. Please note: The reported value represents the total of one or more individual components during the CT acquisition on this date and at this time, and as such, the same value may appear in more than one CT report depending on the interpreting/reporting physicians. COMPARISON: CT angiogram neck 12/25/2021, CT angiogram neck outside hospital earlier in the day FINDINGS: CTA Neck: Vascular calcifications at the carotid siphon vessels. Calcific arteriosclerotic disease without hemodynamically significant stenosis of the arteries. There is normal vascular anatomy. Right dominant vertebrobasilar system. The left vertebral artery is moderately narrowed at the mid to distal V4 segment, unchanged from comparison CT 12/25/2021. Decreased caliber of the left vertebral artery after the posterior inferior cerebellar artery origin, variant. There is no evidence of vascular injury, specifically no arterial occlusion, dissection, or pseudoaneurysm. There is 10 % stenosis of the left ICA origin and 0% stenosis of the right ICA origin by NASCET criteria. There are diffuse right greater than left groundglass opacities in the partially visualized lung apices. Degenerative changes in the spine. Moderate degenerative changes the cervical spine with degenerative listhesis. Procedure Note Jass Garcia MD - 05/29/2024 CLINICAL INDICATION: Ground level fall; known C5, C6 fx. At OSH, CT scan demonstrated acutefractures of C5 and C6. P TECHNIQUE: Contrast-enhanced CT angiogram of the neck was obtained afteradministration of intravenous iodinated contrast using 0.6 mm axial slicethickness with multiplanar reformations and maximum intensity projections.In addition, 3D images were created and reviewed. Total DLP (Dose-Length Product): 2164.95 mGy.cm. Please note: The reportedvalue represents the total of one or more individual components during theCT acquisition on this date and at this time, and as such, the same valuemay appear in more than one CT report depending on theinterpreting/reporting physicians. COMPARISON: CT angiogram neck 12/25/2021, CT angiogram neck outside hospital earlierin the day FINDINGS: CTA Neck: Vascular calcifications at the carotid siphon vessels. Calcificarteriosclerotic disease without hemodynamically significant stenosis ofthe arteries. There is normal vascular anatomy. Right dominant vertebrobasilar system.The left vertebral artery is moderately narrowed at the mid to distal [id number], unchanged from comparison CT 12/25/2021. Decreased caliber of theleft vertebral artery after the posterior inferior cerebellar arteryorigin, variant. There is no evidence of vascular injury, specifically noarterial occlusion, dissection, or pseudoaneurysm. There is 10 % stenosisof the left ICA origin and 0% stenosis of the right ICA origin by NASCETcriteria. There are diffuse right greater than left groundglass opacities in thepartially visualized lung apices. Degenerative changes in the spine. Moderate degenerative changes the cervical spine with degenerativelisthesis. IMPRESSION: No evidence of vascular injury or occlusion in the neck. Diffuse right greater than left reticular and groundglass opacities in thepartially visualized lung apices, which could represent pulmonaryinfection. Degenerative changes in the cervical spine and upper thoracic spine withdegenerative listhesis. Fractures at the posterior elements of C5 and C6. C5 the spinous processand extending to the left lamina. C6 spinous process fracture. Mild arteriosclerotic irregularity and narrowing of the left more thanright the internal carotid artery origin. Mild narrowing of the origin ofthe left vertebral artery. CRITICAL RESULT: No. COMMUNICATION: Per this written report. - By electronically signing this report, I, the attending physician, attestthat I have personally reviewed the images/data for the aboveexamination(s) and agree with the final edited report. Drafted by Reinaldo Velazquez MD on 05/29/2024 4:27 AM Final report signed by Jass Garcia MD on 05/29/2024 4:43 AM Swapna Mercado MD IMG CT PROCEDURES Final Result * N-Terminal Probnp (05/29/2024 2:07 AM EDT) Pathologist [facility] N-Terminal, PROBNP, Plasma 220 0 - 1,799 pg/mL 05/29/2024 3:28 PM EDT [facility] Blood Venous blood specimen / Unknown Venipuncture / Unknown 05/29/2024 2:07 AM EDT 05/29/2024 2:11 AM EDT Mimi Lozada DO LAB BLOOD ORDERABLES Fin al Result [facility] [address] [place] [address] * Peripheral blood smear, pathologist interpretation (05/29/2024 2:07 AM EDT) Clinical Diagnosis, Peripheral Smear Lymphocytosis LAB HEMATOLOGY METHOD 05/29/2024 3:14 PM EDT [facility] Interpretation , Peripheral Smear Mild lymphocytic leukocytosis, see comment. Adequate red blood cells and platelets with normal morphology. A resident was involved in the service. I attest I examined the relevant preparations for the specimens and confirmed the diagnosis or interpretation. 05/29/2024 3:14 PM EDT [facility] Pathologist Signature, Peripheral Smear 05/29/2024 3:14 PM EDT [facility] Comment:Reviewed by: Aniceto mcghee MD LAB CP ASR DISCLAIMER Yes 05/29/2024 3:14 PM EDT [facility] Blood Venous blood specimen / Unknown Venipuncture / Unknown 05/29/2024 2:07 AM EDT 05/29/2024 2:11 AM EDT Narrative [facility] - 05/29/2024 3:14 PM EDT Lymphocytes demonstrate reactive morphology; however, if the lymphocytosis persists or worsens, flow cytometric analysis of peripheral blood is recommended. Swapna Mercado MD LAB PATHOLOGY ORDERABLES Final Result Performing Organization Address City/[facility]/ZIP Co de Phone Number [facility] [address] [place] [address] * (ABNORMAL) APTT (05/29/2024 2:07 AM EDT) Pathologist [facility] aPTT 22(L) 25 - 35 sec 05/29/2024 2:27 AM EDT [facility] Blood Venous blood specimen / Unknown Venipuncture / Unknown 05/29/2024 2:07 AM EDT 05/29/2024 2:11 AM EDT Swapna Mercado MD LAB BLOOD ORDERABLES Final Resu lt [facility] [address] [place] [address] * PT-INR (05/29/2024 2:07 AM EDT) Prothrombin Time 12.5 12.0 - 14.3 sec 05/29/2024 2:26 AM EDT [facility] INR 0.9 0.9 - 1.1 05/29/2024 2:26 AM EDT [facility] Blood Venous blood specimen / Unknown Venipuncture / Unknown 05/29/2024 2:07 AM EDT 05/29/2024 2:11 AM EDT Narrative [facility] - 05/29/2024 2:26 AM EDT OPTIMAL INR RANGES FOR PATIENT ON ORAL ANTICOAGULANT THERAPY Prevention of venous thromboembolism INR 2.0 to 3.0 In patients with heart disease: Atrial fibrillation INR 2.0 to 3.0 Valvular heart disease INR 2.0 to 3.0 Tissue heart valves INR 2.0 to 3.0 Mechanical prosthetic valves INR 2.5 to 3.5 Prevention of recurrent GA INR 2.5 to 3.5 us Swapna Mercado MD LAB BLOOD ORDERABLES Final Resu lt [facility] [address] [place] [address] * (ABNORMAL) CBC w/diff (05/29/2024 2:07 AM EDT) WBC Count 12.52(H) 3.70 - 10.30 10*3/uL LAB HEMATOLOGY METHOD 05/29/2024 5:08 AM EDT [facility] RBC Count 4.57 3.90 - 5.20 10*6/uL LAB HEMATOLOGY METHOD 05/29/2024 5:08 AM EDT [facility] HGB 14.7 11.2 - 15.7 g/dL LAB HEMATOLOGY METHOD 05/29/2024 5:08 AM EDT [facility] HCT 43.6 34.0 - 45.0 % LAB HEMATOLOGY METHOD 05/29/2024 5:08 AM EDT [facility] Platelet Count 175 155 - 369 10*3/uL LAB HEMATOLOGY METHOD 05/29/2024 5:08 AM EDT [facility] MCV 95 79 - 98 fL LAB HEMATOLOGY METHOD 05/29/2024 5:08 AM EDT [facility] MCH 32.2(H) 26.0 - 32.0 pg LAB HEMATOLOGY METHOD 05/29/2024 5:08 AM EDT [facility] MCHC 33.7 30.7 - 35.5 g/dL LAB HEMATOLOGY METHOD 05/29/2024 5:08 AM EDT [facility] RDW 14.8(H) 11.5 - 14.5 % LAB HEMATOLOGY METHOD 05/29/2024 5:08 AM EDT [facility] MPV 10.6 8.8 - 12.5 fL LAB HEMATOLOGY METHOD 05/29/2024 5:08 AM EDT [facility] nRBC 0.0 <=0.0 per 100 WBCs LAB HEMATOLOGY METHOD 05/29/2024 5:08 AM EDT [facility] Differential Type Automated LAB HEMATOLOGY METHOD 05/29/2024 5:08 AM EDT [facility] Neutrophils % 49 % LAB HEMATOLOGY METHOD 05/29/2024 5:08 AM EDT [facility] Lymphocytes % 44 % LAB HEMATOLOGY METHOD 05/29/2024 5:08 AM EDT [facility] Monocytes % 6 % LAB HEMATOLOGY METHOD 05/29/2024 5:08 AM EDT [facility] Eosinophils % 1 % LAB HEMATOLOGY METHOD 05/29/2024 5:08 AM EDT [facility] Basophils % 0 % LAB HEMATOLOGY METHOD 05/29/2024 5:08 AM EDT [facility] Immature Granulocytes % 0 % LAB HEMATOLOGY METHOD 05/29/2024 5:08 AM EDT [facility] Neutrophils Absolute 5.99 1.60 - 6.10 10*3/uL LAB HEMATOLOGY METHOD 05/29/2024 5:08 AM EDT [facility] Lymphocytes Absolute 5.51(H) 1.20 - 3.90 10*3/uL LAB HEMATOLOGY METHOD 05/29/2024 5:08 AM EDT [facility] Monocytes Absolute 0.76 0.30 - 0.90 10*3/uL LAB HEMATOLOGY METHOD 05/29/2024 5:08 AM EDT [facility] Eosinophils Absolute 0.18 0.00 - 0.50 10*3/uL LAB HEMATOLOGY METHOD 05/29/2024 5:08 AM EDT [facility] Basophils Absolute 0.05 0.00 - 0.10 10*3/uL LAB HEMATOLOGY METHOD 05/29/2024 5:08 AM EDT [facility] Immature Granulocytes Absolute 0.03 0.00 - 0.06 10*3/uL LAB HEMATOLOGY METHOD 05/29/2024 5:08 AM EDT [facility] Blood Venous blood specimen / Unknown Venipuncture / Unknown 05/29/2024 2:07 AM EDT 05/29/2024 2:11 AM EDT Narrative [facility] - 05/29/2024 5:08 AM EDT Therapeutic decision making should be based on absolute values, rather than percentages. Swapna Mercado MD LAB BLOOD ORDERABLES Final Resu lt [facility] [address] [place] [address] * Type and screen (05/29/2024 2:07 AM EDT) ABO/Rh A Negative 05/29/2024 1:36 AM EDT [facility]LO[facility] Antibody Screen Negative 05/29/2024 1:36 AM EDT [facility] Specimen Expiration 06/01/2024 23:59 05/29/2024 1:36 AM EDT [facility] Blood Venous blood specimen / Unknown Venipuncture / Unknown 05/29/2024 2:07 AM EDT 05/29/2024 2:12 AM EDT Swapna Mercado MD LAB BLOOD BANK TEST ORDERABLES Final Result Performing Organization Address City/[facility] Co de Phone Number BLOOD BANK [address] [place] [address], * CT NEURO OUTSIDE IMAGES (05/28/2024 5:18 PM EDT) Only the most recent of2 resultswithin the time period is included. Anatomical Region Laterality Modality Computed Tomogra phy 05/28/2024 5:18 PM EDT External Provider IMG CT PROCEDURES Final Result * (ABNORMAL) Hemoglobin A1c (12/25/2021 3:01 AM EDT) Hemoglobin A1c 8.1(H) <5.7 % 12/25/2021 5:10 AM EDT [facility] Blood Venous blood specimen / Unknown Venipuncture / Unknown 12/25/2021 3:01 AM EDT 12/25/2021 3:06 AM EDT Narrative [facility] - 12/25/2021 5:10 AM EDT HA1C Interpretive Data: Diagnosis of Diabetes: Diabetic > or = 6.5% Pre-diabetic 5.7 to 6.4% Non-diabetic < or = 5.6% Glycemic Targets for Type I and Type II Diabetics: Non- Adults <7.0% Adults <6.0% Children and Adolescents <7.5% Source: [place] [employer]. Standards of medical care in diabetes,2017. Diabetes Care.2017:40 (suppl 1):S1-S135. HbA1c assay performed by an ion-exchange chromatography method that is certified traceable to the DCCT. Angelina Espinoza MD LAB BLOOD ORDERABLES Final Result [facility] [address] [place] [address] from Last 3 Months or Most Recently Relevant to Health Maintenance Additional Health Concerns Infection Onset Date Last Indicated Human Metapneumovirus 05/29/2024 05/29/2024 Insurance [facility] Advance Directives * DNR/DNI (Latest Code Status on File) Date Activated Date Inactivated Comments 05/29/2024 1:27 PM 05/31/2024 5:25 PM Patient and cata vaughn report that she does not want chest compressions or intubation. Question Answer Comments DNR determined on/before admission date? Yes * Full Code Date Activated Date Inactivated Comments 12/25/2021 3:29 AM 12/26/2021 7:06 PM Question Answer Comments Patient has decision-making capacity? Yes Care Teams Risk Assessment Analyst Relationship Specialty Start Date End Date Pcp, No [address] [place] [address] PCP - General Family Medicine 07/19/21
--- OUTSIDE RECORDS SUMMARY | 2024-08-14 10:58 | XMS_ITS | Data Portability ---
Author Organization [facility] Address [address] [facility] [facility] [place] [address] Care Team Providers Care Electrician Rectifier Maintenance Name Role Phone MADISON GIANG Primary Care Provider JOSE LUIS SORTO Software Test Manager Assessment No assessment recorded. Plan of Treatment Reminders Order Date Submit Date Provider Last Modified By Organization Details Last Modified Time Details Appointments None record ed. Lab None record ed. Referral None record ed. Procedures None record ed. Surgeries None record ed. Imaging None record ed. Medication Orders None record ed. Patient TargetsNo targets recorded. Patient InstructionsNo instructions recorded. Reason for Referral None Reported. Problems Name Problem SNOMED Code Status Onset Date Resolution Date Notes Provider Name and Address Organization Details Recorded Time History of malignant neoplasm of skin 820092342 Active 024 Juana Sanchez [facility] 15:32:33 Problem Notes None recorded. Procedures Surgical History Date Name Laterality Status Provider Name and Address Organization Details Recorded Time 12/16/2023 DAK - [facility] [place] completed [facility] 12/16/2023 11:02:34 Imaging Results None recorded. Procedure Notes None recorded. Medical Equipment None Reported. Allergies Allergen ID Allergen Name Allergen Category Reaction Reaction Severity Criticality Documentation Date Start Date Code Code System Note Provider Name and Address Organization Details Recorded Time 330574 Augmentin medicatio n Not available Not available Not available 03/21/2023 49392 2 RxNorm Barbie Ramirez [facility] 4 15:21:16 Medications Name Sig Start Date Stop Date Status Note LastModified by Organization Details LastModified Time aspirin active Not Available Not Avail able Not Available levothyroxin e active Not Available Not Available Not Available omeprazole active Not Available Not Av ailable Not Available meclizine active Not Available Not Alisia ilable Not Available clopidogrel active Not Available Not A vailable Not Available furosemide active Not Available Not Av ailable Not Available Reglan active Not Available Not Availa ble Not Available Acidophilus active Not Available Not A vailable Not Available allopurinol active Not Available Not A vailable Not Available metformin active Not Available Not Alisia ilable Not Available Levemir U-100 Insulin active Not Available Not Available Not Available Novolog PenFill U-100 Insulin active Not Available Not Available Not Available Repatha SureClick active Not Available Not Available No t Available Toujeo Max U-300 SoloStar active Not Available Not Available Not Available Leqvio 284 mg/1.5 mL subcutaneous syringe Inject 1.5 mL by subcutaneou s route. active Not Available Not Available No t Available Vitals None Recorded Social History None recorded. Functional Status None recorded. Mental Status None recorded. Family History Nothing Reported. Medical History Condition Response Squamous Cell Carcinoma Y Gynecological HistoryNo gynecological history recorded. Obstetrics History GPAL:G 0 P 0 0 0 0 Past Encounters Encounter ID Performer Location Encounter Start Date Encounter Closed Date Diagnosis/Indication Diagnosis SNOMED-CT Code Diagnosis ICD10 Code Diagnosis Note [id number] JOSE LUIS ALLEN MD [facility] [address] [address] 03/21/2023 15:18:54 03/21/2023 15:44:11 History of malignant neoplasm of skin 491482764 Z85.828 - No evidence of recurrence today- Call with any worrisome lesions or if treated lesions return- Return at regular intervals for skin exam as recommende d most recent, 10/2021 Multiple b enign melanocytic nevi 383629566 D22.5 - Benign moles seen on exam today - SPF 30 or higher broad-spec trum sunscreen recommende d with re-applica tion every 2 hours - Discussed sun protection measures, including wide-brimm ed hat, sun-protec tive clothing, and avoidance of sun during peak hours of 10am-4pm - Avoid tanning beds as these can increase the chances of all 3 types of skin cancer - Instructed to monitor for changes and to call us for appointmen t with any changing or worrisome lesions Seborrheic keratosis 394 647092 L82.1 - Benign overgrowth s of skin - 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 - Benign blood vessel growths - Hereditary Solar lentigo 17440979 L 81.4 - Benign brown spots - Sun-induce d [id number] JOSE LUIS ALLEN MD [facility] [address] [place] [address] 12/16/2023 10:20:42 12/16/2023 11:44:59 History of malignant neoplasm of skin 946194090 Z85.828 - No evidence of recurrence today- Call with any worrisome lesions or if treated lesions return- Return at regular intervals for skin exam as recommende d most recent, 10/2021 Multiple b enign melanocytic nevi 971560452 D22.5 - Benign moles seen on exam today - SPF 30 or higher broad-spec trum sunscreen recommende d with re-applica tion every 2 hours - Discussed sun protection measures, including wide-brimm ed hat, sun-protec tive clothing, and avoidance of sun during peak hours of 10am-4pm - Avoid tanning beds as these can increase the chances of all 3 types of skin cancer - Instructed to monitor for changes and to call us for appointmen t with any changing or worrisome lesions Seborrheic keratosis 394 166409 L82.1 - Benign overgrowth s of skin - Hereditary Senile angioma 4969283 I 78.1 - Benign blood vessel growths - Hereditary Solar lentigo 11858334 L 81.4 - Benign brown spots - Sun-induce d Actinic keratosis 677890 007 L57.0 Actinic keratoses are precancero us lesions that may progress to squamous cell carcinoma if untreated. UV light and genetics may increase risk. Treated lesions should blister, scab over, and heal within a few weeks. If treated lesion(s) does not resolve within 1-2 months, patient agrees to follow up for re-evaluat ion. Abrasion 147352171 T14.8 XXA Pt notes recent injuryRec applying vaseline Health Concerns Section Related Observation LastModified by Organization Detai ls LastModified Time None Recorded Concern Status LastModified by Organization Details LastModified Time None Recorded Advance Directives Directive None Recorded Payers Insurance Date Sequence Insurance Name Policy Number Policy Mayo Covered Member ID Mayo Member ID Guarantor Name 12/20/2023 1 [employer] (MEDICARE REPLACEMENT/A DVANTAGE - PPO) Jenifer Gilliam [id number] Jenifer Gilliam Notes Date Note Type Note Provider Name and Address Organization Details Recorded Time 03/21/2023 text/html Here for a full body skin examination - last skin check: 08/2022 - history of skin cancer - SCC - last skin cancer was in SCC; R zygoma cheek- 10/2021 - spots of concern today: face JOSE LUIS ALLEN MD [address] [place] [address], [phone], [facility] 03/24/2023 12:55:23 12/16/2023 text/html Here for a full body skin examination - last skin check: 02/2023- history of skin cancer - SCC- last skin cancer was in [facility]; R zygoma cheek- 10/2021- spots of concern today: R neck, R arm Pt is accompanied by daughter JOSE LUIS ALLEN MD [address] [place] [address], [phone], [facility] 12/16/2023 12:16:03 OBGyn Episode No OBEpisode recorded.
--- OUTSIDE RECORDS SUMMARY | 2024-08-14 10:59 | XMS_ITS | Encounter Summary ---
Author Organization Healthcare Address [address] [place] [address] Care Team Providers Care Barker Operator Name Role Phone Pcp, No Primary Care Provider Unavailabl e Encounter Details Date Type Department Care Team (Latest Contact Info) Description 07/10/2024 Travel Social History Tobacco Use Types Packs/Day [...] drink first t elba in the morning (EYE-WASHER CUTTER) to steady your nerves or to get [...] [facility] [address] [place] [address] Sade Salinas MD [address] [place] [address] documented as of this encounter Visit Diagnoses Not on filedocumented in this encounter Additional Health Concerns Infection Onset Date Last Indicated Resolved Time Human Metapneumovirus 05/29/2024 05/29/2024 Assessment Noted Time A fall risk assessment has been complete d for the patient 05/08/2024 11:36 AM EDT A Body Mass Index follow-up plan has been documented for the patient 05/31/2024 1:10 PM EDT documented as of this encounter Care Teams Barker Operator Relationship Specialty Start Date End Date Pcp, [place] [address] PCP - General Family Medicine 07/19/21 documented as of this encounter
--- OUTSIDE RECORDS SUMMARY | 2024-08-14 11:00 | XMS_ITS | Data Portability ---
Author Organization Formerly [facility] Address [address] [place] [address] Assessment No assessment recorded. Plan of Treatment Reminders Order Date Submit Date Provider Last Modified By Organization Details Last Modified Time Details Appointments None recorded. Lab TSH + free T4, serum 2023 024 FERMIN [facility], [address], [place] [address], [place], [address], 12:13:02 CMP, serum or plasma 2023 024 [facility], [address], [place], [place], [address], 4 12:13:05 CBC w/ auto diff 2023 024 [facility]MIN [facility], [address], [place] [address], [place], [address], 4 12:13:03 vitamin D, 25-hydroxy, total, serum 2023 024 [facility], [address], [place] [address], [place], [address], 4 12:13:07 glucose, fingerstick , blood 2023 024 [facility], [address] [place] [address] , [place], [address], 4 10:59:15 HbA1c (hemoglobin A1c), blood 2023 024 [facility], [address] [place] [address] , [place], [address], 4 10:59:17 microalbumi n/creatinin e, mass ratio, urine 2023 024 [facility], [address] [place] [address] , [place], [address], 4 10:59:18 vitamin B6 + metabolites panel, serum or plasma 2023 024 [facility], [address], [place] [address], [place], [address], 4 12:13:06 vitamin B12 + folate, serum or blood 2023 024 [facility], [address], [place], [place], [address], 4 12:13:06 vitamin B12, serum 2023 024 [email or web address] [facility], [address], [place], [place], [address], 4 08:13:44 uric acid, serum or plasma 2023 024 [facility], [address], [place], [place], [address], 4 08:28:17 TSH + free T4, serum 2023 024 [facility], [address], [place], [place], [address], 4 08:28:11 lipid panel, serum 2023 024 [facility], [address], [place], [place], [address], 4 08:28:13 CMP, serum or plasma 2023 024 [facility], [address], [place], [place], [address], 4 08:28:12 magnesium, serum or plasma 2023 024 [facility], [address], [place], [place], [address], 4 08:28:18 urinalysis, dipstick 2023 024 [facility], [address] [place] [address] , [place], [address], 4 10:00:52 vitamin D, 25-hydroxy, total, serum 2023 024 [facility], [address], [place] [address], [place], [address], 4 08:28:16 CBC w/ auto diff 2023 024 [facility], [address], [place], [place], [address], 4 08:28:11 iron + total iron-bindin g capacity (TIBC), serum 2023 024 [facility], [address], [place], [place], [address], 4 08:28:14 ferritin, serum or plasma 2023 024 [facility], [address], [place], [place], [address], 4 08:28:18 vitamin B12 + folate, serum or blood 2023 024 [facility], [address], [place], [place], [address], 4 08:28:15 glucose, fingerstick , blood 2023 024 [facility], [address] [place] [address] , [place], [address], 4 10:00:49 HbA1c (hemoglobin A1c), blood 2023 024 [facility], [address] [place] [address] , [place], [address], 4 10:00:50 glucose, fingerstick , blood 2023 024 [facility], [address] [place] [address] , [place], [address], 4 15:00:47 HbA1c (hemoglobin A1c), blood 2023 024 [facility], [address] [place] [address] , [place], [address], 4 15:00:48 TSH + free T4, serum 2022 023 [facility], [address], [place], [place], [address], 3 07:13:13 uric acid, serum or plasma 2022 023 [facility], [address], [place], [place], [address], 3 07:13:16 lipid panel, serum 2022 023 [facility], [address], [place], [place], [address], 3 07:13:15 CMP, serum or plasma 2022 023 [facility], [address], [place], [place], [address], 3 07:13:14 vitamin D, 25-hydroxy, total, serum 2022 023 [facility], [address], [place], [place], [address], 3 07:13:16 glucose, fingerstick , blood 2022 023 [facility], [address] [place] [address] , [place], [address], 3 09:09:43 HbA1c (hemoglobin A1c), blood 2022 023 [facility], [address] [place] [address] , [place], [address], 3 09:09:45 vitamin B12, serum 2022 023 [facility], [address], [place], [place], [address], 3 07:13:17 glucose, fingerstick , blood 2022 023 [facility], [address] [place] [address] , [place], [address], 3 13:17:23 HbA1c (hemoglobin A1c), blood 2022 023 [facility], [address] [place] [address] , [place], [address], 3 13:17:23 microalbumi n/creatinin e, mass ratio, urine 2022 023 [facility], [address] [place] [address] , [place], [address], 3 13:17:23 Referral None recorded. Procedures None recorded. Surgeries None recorded. Imaging US, carotid artery 2023 024 [facility], [address] [place], [place] [address], [place], [address], 4 11:45:42 Medication Orders hydrocortis one 2.5 % topical cream [address] [facility], [address] [place] [address], [address], 5 15:04:59 Novolog FlexPen U-100 Insulin aspart 100 unit/mL (3 mL) subcutaneou s [address] [facility], [address] [place] [address], [address], 4 10:59:10 Zithromax Z-Julius 250 mg tablet [address], [address], 5 13:43:33 dexamethaso ne sodium phosphate 4 mg/mL injection solution 2023 024 Not available 4 09:29:15 Novolog FlexPen U-100 Insulin aspart 100 unit/mL (3 mL) subcutaneou s [address] [facility], [address] [place] [address], [address], 4 15:00:45 hydrocortis one 2.5 % topical cream [address], [address], 5 13:44:31 meclizine 25 mg chewable tablet [address], [address], 3 13:17:31 allopurinol 100 mg tablet [address], [address], 3 13:17:35 fenofibrate nanocrystal lized 145 mg tablet 2022 [email or web address], [address], 4 08:27:06 Repatha SureClick 140 mg/mL subcutaneou s pen injector [address], [address], 3 13:17:31 carvedilol 6.25 mg tablet 2022 [email or web address], [address], 5 10:18:23 cholecalcif anupam (vitamin D3) 25 mcg (1,000 unit) tablet 2022 [email or web address], [address], 5 11:30:24 clopidogrel 75 mg tablet [address], [address], 3 13:17:30 furosemide 20 mg tablet [address], [address], 5 11:26:41 hydrocortis one 2.5 % topical cream 20[email or web address], [address], 5 13:44:31 Lactobacill us acidophilus 500 million cell capsule [address], [address], 4 10:58:00 pantoprazol e 40 mg tablet,osman yed release [address], [address], 3 13:17:34 levothyroxi ne 75 mcg tablet [address], [address], 5 11:27:57 aspirin 81 mg chewable tablet [address], [address], 3 13:17:33 Novolog FlexPen U-100 Insulin aspart 100 unit/mL (3 mL) subcutaneou s [address], [address], 3 13:17:36 Toujeo Max U-300 SoloStar 300 unit/mL (3 mL) subcutaneou s insulin pen 2022 023 FERMIN [facility], [address] [place] [address], [address], 13:17:37 Patient TargetsNo targets recorded. Patient Instructions Encounter Date Encounter Id Patient Instructions Last Modified By Organization Details Last Modified Time 09/12/2022 [id number] medicines to avoid with kidney disease: care instructions [email or web address] Not available 09/12/2022 13:17:24 glucose sensor download and interpretation* [email or web address] Not available 09/12/2022 14:21:45 obesity educatio n information [email or web address] Not available 09/12/2022 13:17:23 Continue Toujeo Max 8 to 16 units daily at bedtime. Continue Novolog before each meal according to sliding scale. Continue wearing Freestyle Pancho 2 CGM. Continue Levothyroxine 75 mcg daily. Follow up with your other health care providers as scheduled. I want to see you back in 3 months. [email or web address] Not available 09/12/2022 13:23:08 12/25/2022 [id number] medicines to avoid with kidney disease: care instructions [email or web address] Not available 12/25/2022 09:09:38 high cholesterol : care instructions rjessee Not available 12/25/2022 09:09:38 learning about type 2 diabetes [email or web address] Not available 12/25/2022 09:09:38 type 2 diabetes: care instructions rjessee Not available 12/25/2022 09:09:38 glucose sensor download and interpretation* Not available 01/01/2023 07:23:56 obesity educatio n information rjessee Not available 12/25/2022 09:09:37 Continue Toujeo Max 16 units daily at bedtime. Continue Novolog before each meal according to sliding scale. Continue wearing Freestyle Pancho 2 CGM. We will call you with your lab results and adjust your Levothyroxine dose if indicated. Applied dermabond to the laceration between your fingers. Keep a close eye on it and if you notice redness, heat, drainage, etc. give me a call. Follow up with your other health care providers as scheduled. I want to see you back in 3 months. [email or web address] Not available 12/25/2022 09:34:37 04/18/2023 [id number] medicines to avoid with kidney disease: care instructions rjessee Not available 04/18/2023 15:00:43 Acute Sinusitis: Care Instructions rjessee Not available 04/18/2023 15:00:43 high cholesterol : care instructions rjessee Not available 04/18/2023 15:00:43 learning about type 2 diabetes rjessee Not available 04/18/2023 15:00:43 type 2 diabetes: care instructions rjessee Not available 04/18/2023 15:00:43 glucose sensor download and interpretation* Not available 04/26/2023 09:28:13 obesity educatio n information rjessee Not available 04/18/2023 15:00:43 Continue Toujeo Max 16 units daily at bedtime. Continue Novolog before each meal according to sliding scale. Continue wearing Freestyle Pancho 2 CGM. Continue Levothyroxine 75 mcg daily. Follow up with your other health care providers as scheduled. I want to see you back in 3 months. [email or web address] Not available 03/26/2023 17:51:44 07/18/2023 [id number] medicines to avoid with kidney disease: care instructions rjessee Not available 07/18/2023 10:00:39 dizziness: care instructions rjessee Not available 07/18/2023 10:00:39 high cholesterol : care instructions rjessee Not available 07/18/2023 10:00:40 nausea and vomiting: care instructions rjessee Not available 07/18/2023 10:00:38 learning about type 2 diabetes rjessee Not available 07/18/2023 10:00:40 type 2 diabetes: care instructions rjessee Not available 07/18/2023 10:00:39 glucose sensor download and interpretation* Not available 07/25/2023 07:24:35 obesity educatio n information rjessee Not available 07/18/2023 10:00:39 Continue Toujeo Max 16 units daily at bedtime. Continue Novolog before each meal according to sliding scale. Continue wearing Freestyle Pancho 2 CGM. We will call you with your lab and ultrasound results. Transfer from sitting to standing slowly. Follow up with your other health care providers as scheduled. I want to see you back in 3 months. [email or web address] Not available 07/18/2023 10:12:34 10/21/2023 [id number] medicines to avoid with kidney disease: care instructions rjessee Not available 10/21/2023 10:59:08 high cholesterol : care instructions rjessee Not available 10/21/2023 10:59:07 learning about type 2 diabetes rjessee Not available 10/21/2023 10:59:07 type 2 diabetes: care instructions rjessee Not available 10/21/2023 10:59:07 glucose sensor download and interpretation* [email or web address] Not available 10/29/2023 14:17:41 obesity educatio n information rjessee Not available 10/21/2023 10:59:06 Continue Toujeo Max 16 units daily at bedtime. Continue Novolog before each meal according to sliding scale. Continue wearing [employer] Pancho 2 CGM. We will call you with your lab results and send a copy to your neurologist at [facility]. Follow up with your other health care providers as scheduled. I want to see you back in 3 months. [email or web address] Not available 10/21/2023 11:12:11 Reason for Referral None Reported. Results Created Date Observation Date Name Description Value Unit Range Abnormal Flag Note LastModifiedBy Organization Detail LastModifiedTime 09/13/1909/12/2022 micro album in/cr eatin ine, mass ratio , urine Microalbumin 10 mg/L Not Available [address] , [place], [address], 09/12/2022 13:05:42 09/13/19 23 09/12/2022 micro album in/cr eatin ine, mass ratio , urine Creatinine 100 mg/dL Not Available [address] , [place], [address], 09/12/2022 13:05:42 09/13/19 23 09/12/2022 micro album in/cr eatin ine, mass ratio , urine Ratio <30 mg/g Normal Not Available [address] , [place], [address], 09/12/2022 13:05:42 09/13/1909/12/2022 HbA1c (hemo globi n A1c), blood HbA1C 7.6 % Not Available [address] , [place], [address], 09/12/2022 09:50:19 09/13/19 23 09/12/2022 gluco se, finge rstic k, blood Blood Glucose: mg/dl 129 Not Available [address] , [place], [address], 09/12/2022 09:50:19 09/13/19 23 09/12/2022 gluco se, finge rstic k, blood Reference Range (60-100) abnorm al Not Available [address] , [place], [address], 09/12/2022 09:50:19 12/26/19 23 12/26/2022 TSH+F REE T4 TSH 6.130 uIU/m L 0.450- 4.500 above high normal Not Available [facility] ([facility]) [address] [place], [address], 12/26/2022 07:13:13 12/26/19 23 12/26/2022 TSH+F REE T4 T4,free(dire ct) 1.36 NG/dL 0.82-1 .77 Not Available [facility] ([facility]) [address] [place], [address], 12/26/2022 07:13:13 12/26/1912/26/2022 COMP. METAB OLIC PANEL (14) glucose 176 mg/dL 70-99 above high normal Not Available [facility] ([facility]) [address] [place], [address], 12/26/2022 07:13:14 12/26/19 23 12/26/2022 COMP. METAB OLIC PANEL (14) BUN 28 mg/dL 8-27 above high normal Not Available [facility] ([facility]) [address] [facility] [place], [address], 12/26/2022 07:13:14 12/26/19 23 12/26/2022 COMP. METAB OLIC PANEL (14) creatinine 1.54 mg/dL 0.57-1 .00 above high normal Not Available [facility] ([facility]) [address] [facility] [place], [address], 12/26/2022 07:13:14 12/26/1912/26/2022 COMP. METAB OLIC PANEL (14) eGFR 33 mL/mi n/1.7 3 >59 below low normal Not Available [facility] ([facility]) [address] [facility] [place], [address], 12/26/2022 07:13:14 12/26/1912/26/2022 COMP. METAB OLIC PANEL (14) BUN/creatini ne ratio 18 12-28 Not Available [facility] ([facility]) [address] [facility] [place], [address], 12/26/2022 07:13:14 12/26/19 23 12/26/2022 COMP. METAB OLIC PANEL (14) sodium 140 mmol/ L 134-14 4 Not Available [facility] ([facility]) [address] [facility] [place], [address], 12/26/2022 07:13:14 12/26/19 23 12/26/2022 COMP. METAB OLIC PANEL (14) potassium 4.1 mmol/ L 3.5-5. 2 Not Available [facility] ([facility]) [address] [facility] [place], [address], 12/26/2022 07:13:14 12/26/19 23 12/26/2022 COMP. METAB OLIC PANEL (14) chloride 100 mmol/ L 96-106 Not Available [facility] ([facility]) [address] [facility], [place], [address], 12/26/2022 07:13:14 12/26/19 23 12/26/2022 COMP. METAB OLIC PANEL (14) carbon dioxide, total 27 mmol/ L 20-29 Not Available [facility] ([facility]) [address] [facility], [place], [address], 12/26/2022 07:13:14 12/26/1912/26/2022 COMP. METAB OLIC PANEL (14) calcium 9.7 mg/dL 8.7-10 .3 Not Available [facility] ([facility]) [address] [facility], [place], [address], 12/26/2022 07:13:14 12/26/19 23 12/26/2022 COMP. METAB OLIC PANEL (14) protein, total 7.1 g/dL 6.0-8. 5 Not Available [facility] ([facility]) [address] [facility], [place], [address], 12/26/2022 07:13:14 12/26/19 23 12/26/2022 COMP. METAB OLIC PANEL (14) albumin 4.2 g/dL 3.7-4. 7 Not Available [facility] ([facility]) [address] [facility], [place], [address], 12/26/2022 07:13:14 12/26/19 23 12/26/2022 COMP. METAB OLIC PANEL (14) globulin, total 2.9 g/dL 1.5-4. 5 Not Available [facility] ([facility]) [address] [facility], [place], [address], 12/26/2022 07:13:14 12/26/19 23 12/26/2022 COMP. METAB OLIC PANEL (14) A/G ratio 1.4 1.2-2. 2 Not Available [facility] ([facility]) [address] [facility] [place], [address], 12/26/2022 07:13:14 12/26/19 23 12/26/2022 COMP. METAB OLIC PANEL (14) bilirubin, total 0.5 mg/dL 0.0-1. 2 Not Available [facility] ([facility]) [address] [facility] [place], [address], 12/26/2022 07:13:14 12/26/19 23 12/26/2022 COMP. METAB OLIC PANEL (14) alkaline phosphatase 34 IU/L 44-121 below low normal Not Available [facility] ([facility]) [address] [facility] [place], [address], 12/26/2022 07:13:14 12/26/19 23 12/26/2022 COMP. METAB OLIC PANEL (14) AST (SGOT) 31 IU/L 0-40 Not Available [facility] ([facility]) [address] [facility] [place], [address], 12/26/2022 07:13:14 12/26/19 23 12/26/2022 COMP. METAB OLIC PANEL (14) ALT (SGPT) 17 IU/L 0-32 Not Available [facility] ([facility]) [address] [facility] [place], [address], 12/26/2022 07:13:14 12/26/19 23 12/26/2022 LIPID PANEL cholesterol, total 140 mg/dL 100-19 9 Not Available [facility] ([facility]) [address] [facility] [place], [address], 12/26/2022 07:13:15 12/26/19 23 12/26/2022 LIPID PANEL triglyceride s 149 mg/dL 0-149 Not Available [facility] ([facility]) [address] [facility], [place], [address], 12/26/2022 07:13:15 12/26/19 23 12/26/2022 LIPID PANEL HDL cholesterol 58 mg/dL >39 Not Available [facility] ([facility]) [address], [place], [address], 12/26/2022 07:13:15 12/26/19 23 12/26/2022 LIPID PANEL VLDL cholesterol josh 25 mg/dL 5-40 Not Available [facility] ([facility]) [address] [facility], [place], [address], 12/26/2022 07:13:15 12/26/19 23 12/26/2022 LIPID PANEL LDL chol calc ([facility]) 57 mg/dL 0-99 Not Available [facility] ([facility]) [address] [facility], [place], [address], 12/26/2022 07:13:15 12/26/1912/26/2022 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 The Endoc rine Socie ty went on to furth er defin e vitam in D insuf ficie ncy as a level betwe en 21 and 29 ng/mL (2). 1. IOM (Inst itute of Medic ine). 2010. Dieta ry refer ence intak es for calci um and D. Kenneth lopez [place]: The [facility] . 2. Jon lopez MF, Huseyin oscar [place], Bisch off-F errar i LIZ, et al. Evalu ation , treat ment, and preve ntion of vitam in D defic iency : an Endoc rine Socie ty clini josh pract ice guide line. JCEM. 2010; 96(7) :1911 -30. Not Available [facility] ([facility]) [address] [facility], [place], [address], 12/26/2022 07:13:15 12/26/1912/26/2022 URIC ACID uric acid 4.1 mg/dL 3.1-7. 9 Thera peuti c targe t for gout patie nts: <6.0 Not Available [facility] ([facility]) [address] [facility], [place], [address], 12/26/2022 07:13:16 12/26/19 23 12/26/2022 VITAM IN B12 vitamin B12 670 pg/mL 232-12 45 Not Available [facility] ([facility]) [address] [facility], [place], [address], 12/26/2022 07:13:17 12/26/19 23 12/25/2022 HbA1c (hemo globi n A1c), blood HbA1C 7.3 % Not Available [address] , [place], [address], 12/25/2022 08:38:23 12/26/19 23 12/25/2022 gluco se, finge rstic k, blood Blood Glucose: mg/dl 183 Not Available [address] , [place], [address], 12/25/2022 08:38:16 04/18/19 24 04/18/2023 HbA1c (hemo globi n A1c), blood HbA1C 8.2 % Not Available [address] , [place], [address], 04/18/2023 14:40:21 04/18/19 24 04/18/2023 gluco se, finge rstic k, blood Blood Glucose: mg/dl 193 Not Available [address] , [place], [address], 04/18/2023 14:39:15 07/18/19 24 07/19/2023 TSH+F REE T4 TSH 3.680 uIU/m L 0.450- 4.500 Not Available [facility] ([facility]) [address] [place], [address], 07/19/2023 08:28:10 07/18/19 24 07/19/2023 TSH+F REE T4 T4,free(dire ct) 1.73 NG/dL 0.82-1 .77 Not Available [facility] ([facility]) [address] [place], [address], 07/19/2023 08:28:10 07/18/19 24 07/19/2023 CBC WITH DIFFE RENTI AL/PL ATELE T WBC 7.7 x10e3 /uL 3.4-10 .8 Not Available [facility] ([facility]) [address] [place], [address], 07/19/2023 08:28:11 07/18/19 24 07/19/2023 CBC WITH DIFFE RENTI AL/PL ATELE T RBC 4.07 x10e6 /uL 3.77-5 .28 Not Available [facility] ([facility]) [address] [place], [address], 07/19/2023 08:28:11 07/18/19 24 07/19/2023 CBC WITH DIFFE RENTI AL/PL ATELE T hemoglobin 12.9 g/dL 11.1-1 5.9 Not Available [facility] ([facility]) [address] [place], [address], 07/19/2023 08:28:11 07/18/19 24 07/19/2023 CBC WITH DIFFE RENTI AL/PL ATELE T hematocrit 39.3 % 34.0-4 6.6 Not Available [facility] ([facility]) [address] [facility], [place], [address], 07/19/2023 08:28:11 07/18/19 24 07/19/2023 CBC WITH DIFFE RENTI AL/PL ATELE T MCV 97 fL 79-97 Not Available [facility] ([facility]) [address] [facility], [place], [address], 07/19/2023 08:28:11 07/18/19 24 07/19/2023 CBC WITH DIFFE RENTI AL/PL ATELE T MCH 31.7 pg 26.6-3 3.0 Not Available [facility] ([facility]) [address] [facility], [place], [address], 07/19/2023 08:28:11 07/18/19 24 07/19/2023 CBC WITH DIFFE RENTI AL/PL ATELE T MCHC 32.8 g/dL 31.5-3 5.7 Not Available [facility] ([facility]) [address] [facility], [place], [address], 07/19/2023 08:28:11 07/18/19 24 07/19/2023 CBC WITH DIFFE RENTI AL/PL ATELE T RDW 13.5 % 11.7-1 5.4 Not Available [facility] ([facility]) [address] [facility], [place], [address], 07/19/2023 08:28:11 07/18/19 24 07/19/2023 CBC WITH DIFFE RENTI AL/PL ATELE T platelets 191 x10e3 /uL 150-45 0 Not Available [facility] ([facility]) [address] [facility], [place], [address], 07/19/2023 08:28:11 07/18/19 24 07/19/2023 CBC WITH DIFFE RENTI AL/PL ATELE T neutrophils 43 % not estab. Not Available [facility] ([facility]) [address] [facility], [place], [address], 07/19/2023 08:28:11 07/18/19 24 07/19/2023 CBC WITH DIFFE RENTI AL/PL ATELE T lymphs 46 % not estab. Not Available [facility] ([facility]) [address] [facility], [place], [address], 07/19/2023 08:28:11 07/18/19 24 07/19/2023 CBC WITH DIFFE RENTI AL/PL ATELE T monocytes 7 % not estab. Not Available [facility] ([facility]) [address] [facility], [place], [address], 07/19/2023 08:28:11 07/18/19 24 07/19/2023 CBC WITH DIFFE RENTI AL/PL ATELE T eos 3 % not estab. Not Available [facility] ([facility]) [address] [facility], [place], [address], 07/19/2023 08:28:11 07/18/19 24 07/19/2023 CBC WITH DIFFE RENTI AL/PL ATELE T basos 1 % not estab. Not Available [facility] ([facility]) [address] [facility], [place], [address], 07/19/2023 08:28:11 07/18/19 24 07/19/2023 CBC WITH DIFFE RENTI AL/PL ATELE T immature cells [employer]ILER Not Available [facility] ([facility]) [address] [place], [address], 07/19/2023 08:28:11 07/18/19 24 07/19/2023 CBC WITH DIFFE RENTI AL/PL ATELE T neutrophils (absolute) 3.3 x10e3 /uL 1.4-7. 0 Not Available [facility] ([facility]) [address] [facility], [place], [address], 07/19/2023 08:28:11 07/18/19 24 07/19/2023 CBC WITH DIFFE RENTI AL/PL ATELE T lymphs (absolute) 3.5 x10e3 /uL 0.7-3. 1 above high normal Not Available [facility] ([facility]) [address] [facility], [place], [address], 07/19/2023 08:28:11 07/18/1907/19/2023 CBC WITH DIFFE RENTI AL/PL ATELE T monocytes(ab solute) 0.6 x10e3 /uL 0.1-0. 9 Not Available [facility] ([facility]) [address] [facility], [place], [address], 07/19/2023 08:28:11 07/18/19 24 07/19/2023 CBC WITH DIFFE RENTI AL/PL ATELE T eos (absolute) 0.2 x10e3 /uL 0.0-0. 4 Not Available [facility] ([facility]) [address] [facility], [place], [address], 07/19/2023 08:28:11 07/18/19 24 07/19/2023 CBC WITH DIFFE RENTI AL/PL ATELE T baso (absolute) 0.1 x10e3 /uL 0.0-0. 2 Not Available [facility] ([facility]) [address] [facility], [place], [address], 07/19/2023 08:28:11 07/18/1907/19/2023 CBC WITH DIFFE RENTI AL/PL ATELE T immature granulocytes 0 % not estab. Not Available [facility] ([facility]) [address] [facility], [place], [address], 07/19/2023 08:28:11 07/18/19 24 07/19/2023 CBC WITH DIFFE RENTI AL/PL ATELE T immature grans (abs) 0.0 x10e3 /uL 0.0-0. 1 Not Available [facility] ([facility]) [address] [facility], [place], [address], 07/19/2023 08:28:11 07/18/19 24 07/19/2023 CBC WITH DIFFE RENTI AL/PL ATELE T NRBC [employer] Not Available [facility] ([facility]) [address] [facility], [place], [address], 07/19/2023 08:28:11 07/18/19 24 07/19/2023 CBC WITH DIFFE RENTI AL/PL ATELE T hematology comments: [employer]ER Not Available [facility] ([facility]) [address] [facility], [place], [address], 07/19/2023 08:28:11 07/18/19 24 07/19/2023 COMP. METAB OLIC PANEL (14) glucose 219 mg/dL 70-99 above high normal Not Available [facility] ([facility]) [address] [facility], [place], [address], 07/19/2023 08:28:12 07/18/19 24 07/19/2023 COMP. METAB OLIC PANEL (14) BUN 38 mg/dL 8-27 above high normal Not Available [facility] ([facility]) [address] [facility], [place], [address], 07/19/2023 08:28:12 07/18/19 24 07/19/2023 COMP. METAB OLIC PANEL (14) creatinine 1.89 mg/dL 0.57-1 .00 above high normal Not Available [facility] ([facility]) [address] [facility], [place], [address], 07/19/2023 08:28:12 07/18/19 24 07/19/2023 COMP. METAB OLIC PANEL (14) eGFR 26 mL/mi n/1.7 3 >59 below low normal Not Available [facility] ([facility]) [address] [facility] [place], [address], 07/19/2023 08:28:12 07/18/19 24 07/19/2023 COMP. METAB OLIC PANEL (14) BUN/creatini ne ratio 13 02- Not Available [facility] ([facility]) [address] [facility], [place], [address], 07/19/2023 08:28:12 07/18/19 24 07/19/2023 COMP. METAB OLIC PANEL (14) sodium 138 mmol/ L 134-14 4 Not Available [facility] ([facility]) [address] [facility] [place], [address], 07/19/2023 08:28:12 07/18/19 24 07/19/2023 COMP. METAB OLIC PANEL (14) potassium 4.7 mmol/ L 3.5-5. 2 Not Available [facility] ([facility]) [address] [facility] [place], [address], 07/19/2023 08:28:12 07/18/19 24 07/19/2023 COMP. METAB OLIC PANEL (14) chloride 98 mmol/ L 96-106 Not Available [facility] ([facility]) [address] [facility] [place], [address], 07/19/2023 08:28:12 07/18/19 24 07/19/2023 COMP. METAB OLIC PANEL (14) carbon dioxide, total 23 mmol/ L 20-29 Not Available [facility] ([facility]) [address] [facility] [place], [address], 07/19/2023 08:28:12 07/18/19 24 07/19/2023 COMP. METAB OLIC PANEL (14) calcium 10.0 mg/dL 8.7-10 .3 Not Available [facility] ([facility]) [address] [facility], [place], [address], 07/19/2023 08:28:12 07/18/19 24 07/19/2023 COMP. METAB OLIC PANEL (14) protein, total 7.1 g/dL 6.0-8. 5 Not Available [facility] ([facility]) [address] [place], [address], 07/19/2023 08:28:12 07/18/19 24 07/19/2023 COMP. METAB OLIC PANEL (14) albumin 4.3 g/dL 3.7-4. 7 Not Available [facility] ([facility]) [address] [place], [address], 07/19/2023 08:28:12 07/18/19 24 07/19/2023 COMP. METAB OLIC PANEL (14) globulin, total 2.8 g/dL 1.5-4. 5 Not Available [facility] ([facility]) [address] [place], [address], 07/19/2023 08:28:12 07/18/19 24 07/19/2023 COMP. METAB OLIC PANEL (14) A/G ratio 1.5 1.2-2. 2 Not Available [facility] ([facility]) [address] [place], [address], 07/19/2023 08:28:12 07/18/19 24 07/19/2023 COMP. METAB OLIC PANEL (14) bilirubin, total 0.6 mg/dL 0.0-1. 2 Not Available [facility] ([facility]) [address] [place], [address], 07/19/2023 08:28:12 07/18/19 24 07/19/2023 COMP. METAB OLIC PANEL (14) alkaline phosphatase 38 IU/L 44-121 below low normal Not Available [facility] ([facility]) [address] [place], [address], 07/19/2023 08:28:12 07/18/19 24 07/19/2023 COMP. METAB OLIC PANEL (14) AST (SGOT) 30 IU/L 0-40 Not Available [facility] ([facility]) [address] [place], [address], 07/19/2023 08:28:12 07/18/19 24 07/19/2023 COMP. METAB OLIC PANEL (14) ALT (SGPT) 18 IU/L 0-32 Not Available [facility] ([facility]) [address] [place], [address], 07/19/2023 08:28:12 07/18/19 24 07/19/2023 LIPID PANEL cholesterol, total 137 mg/dL 100-19 9 Not Available [facility] ([facility]) [address] [place], [address], 07/19/2023 08:28:13 07/18/19 24 07/19/2023 LIPID PANEL triglyceride s 224 mg/dL 0-149 above high normal Not Available [facility] ([facility]) [address] [place], [address], 07/19/2023 08:28:13 07/18/19 24 07/19/2023 LIPID PANEL HDL cholesterol 45 mg/dL >39 Not Available [facility] ([facility]) [address] [place], [address], 07/19/2023 08:28:13 07/18/19 24 07/19/2023 LIPID PANEL VLDL cholesterol josh 36 mg/dL 5-40 Not Available [facility] ([facility]) [address] [place], [address], 07/19/2023 08:28:13 07/18/19 24 07/19/2023 LIPID PANEL LDL chol calc (nih) 56 mg/dL 0-99 Not Available [facility] ([facility]) [address] [place], [address], 07/19/2023 08:28:13 07/18/19 24 07/19/2023 LIPID PANEL 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: [employer]ILER Not Available [facility] ([facility]) [address] [facility] [place], [address], 07/19/2023 08:28:13 07/18/19 24 07/19/2023 IRON AND TIBC iron bind.cap.(TI BC) 430 ug/dL 250-45 0 Not Available [facility] ([facility]) [address] [facility] [place], [address], 07/19/2023 08:28:14 07/18/19 24 07/19/2023 IRON AND TIBC UIBC 266 ug/dL 118-36 9 Not Available [facility] ([facility]) [address] [facility] [place], [address], 07/19/2023 08:28:14 07/18/19 24 07/19/2023 IRON AND TIBC iron 164 ug/dL 27-139 above high normal Not Available [facility] ([facility]) [address] [facility] [place], [address], 07/19/2023 08:28:14 07/18/19 24 07/19/2023 IRON AND TIBC iron saturation 38 % 15-55 Not Available [facility] ([facility]) [address] [facility] [place], [address], 07/19/2023 08:28:14 07/18/19 24 07/19/2023 VITAM IN B12 AND FOLAT E vitamin B12 627 pg/mL 232-12 45 Not Available [facility] ([facility]) [address] [facility] [place], [address], 07/19/2023 08:28:15 07/18/19 24 07/19/2023 VITAM IN B12 AND FOLAT E folate (folic acid), serum 7.4 NG/mL >3.0 A serum folat e amber ntrat ion of less than 3.1 ng/mL is consi dered to repre sent clini josh defic iency . Not Available [facility] ([facility]) [address] [facility], [place], [address], 07/19/2023 08:28:15 07/18/19 24 07/19/2023 VITAM IN D, 25-HY DROXY vitamin D, 25-hydroxy 40.6 NG/mL 30.0-1 00.0 Vitam in D defic iency has been defin ed by the Insti tute of Medic ine and an Endoc rine Socie ty pract ice guide line as a level of serum 25-OH vitam in D less than 20 ng/mL (1,2) . The Endoc rine Socie ty went on to furth er defin e vitam in D insuf ficie ncy as a level betwe en 21 and 29 ng/mL (2). 1. IOM (Inst itute of Medic ine). 2010. Dieta ry refer ence intak es for calci um and D. Kenneth lopez [place]: [facility] . 2. Jon lopez MF, Huseyin oscar [place], Kelly off-F hudsonar i LIZ, et al. Evalu ation , treat ment, and preve ntion of vitam in D defic iency : an Endoc rine Socie ty clini josh pract ice guide line. JCEM. 2010; 96(7) :1911 -30. Not Available [facility] ([facility]) [address] [facility], [place], [address], 07/19/2023 08:28:16 07/18/19 24 07/19/2023 URIC ACID uric acid 4.6 mg/dL 3.1-7. 9 Thera richy isaac t for gout patie nts: <6.0 Not Available [facility] ([facility]) [address] [facility], [place], [address], 07/19/2023 08:28:17 07/18/19 24 07/19/2023 MAGNE SIUM magnesium 2.1 mg/dL 1.6-2. 3 Not Available [facility] ([facility]) [address] [facility], [place], [address], 07/19/2023 08:28:17 07/18/19 24 07/19/2023 DIALLO TIN ferritin 95 NG/mL 15-150 Not Available [facility] ([facility]) [address] [facility], [place], [address], 07/19/2023 08:28:18 07/18/19 24 07/18/2023 urina lysis , dipst ick Leukocytes Negati ve Not Available [address] , [place], [address], 07/18/2023 09:44:02 07/18/19 24 07/18/2023 urina lysis , dipst ick Nitrite negati ve Not Available [address] , [place], [address], 07/18/2023 09:44:02 07/18/19 24 07/18/2023 urina lysis , dipst ick Urobilinogen .2 Not Available [address] , [place], [address], 07/18/2023 09:44:02 07/18/19 24 07/18/2023 urina lysis , dipst ick Protein Negati ve Not Available [address] , [place], [address], 07/18/2023 09:44:02 07/18/19 24 07/18/2023 urina lysis , dipst ick pH 6.0 Not Available [address] , [place], [address], 07/18/2023 09:44:02 07/18/19 24 07/18/2023 urina lysis , dipst ick Blood Negati ve Not Available [address] , [place], [address], 07/18/2023 09:44:02 07/18/19 24 07/18/2023 urina lysis , dipst ick Specific Mylo 1.025 Not Available [address] , [place], [address], 07/18/2023 09:44:02 07/18/19 24 07/18/2023 urina lysis , dipst ick Ketone Negati ve Not Available [address] , [place], [address], 07/18/2023 09:44:02 07/18/19 24 07/18/2023 urina lysis , dipst ick Bilirubin Negati ve Not Available [address] , [place], [address], 07/18/2023 09:44:02 07/18/19 24 07/18/2023 urina lysis , dipst ick Glucose Negati ve Not Available [address] , [place], [address], 07/18/2023 09:44:02 07/18/19 24 07/18/2023 urina lysis , dipst ick Appearance Clear Not Available [address] , [place], [address], 07/18/2023 09:44:02 07/18/19 24 07/18/2023 urina lysis , dipst ick Color Yellow Not Available [address] [place], [address], 07/18/2023 09:44:02 07/18/19 24 07/18/2023 HbA1c (hemo globi n A1c), blood HbA1C 8.0 % Not Available [address] , [place], [address], 07/17/2023 15:20:13 07/18/19 24 07/18/2023 gluco se, finge rstic k, blood Blood Glucose: mg/dl 251 Not Available [address] , [place], [address], 07/17/2023 15:20:13 10/21/19 24 10/22/2023 TSH+F REE T4 TSH 2.250 uIU/m L 0.450- 4.500 normal Not Available [facility] ([facility]) [address] [place], [address], 10/25/2023 12:13:02 10/21/19 24 10/22/2023 TSH+F REE T4 T4,free(dire ct) 1.60 NG/dL 0.82-1 .77 normal Not Available [facility] ([facility]) [address] [place], [address], 10/25/2023 12:13:02 10/21/19 24 10/22/2023 CBC WITH DIFFE RENTI AL/PL ATELE T WBC 8.5 x10e3 /uL 3.4-10 .8 normal Not Available [facility] ([facility]) [address] [place], [address], 10/25/2023 12:13:03 10/21/19 24 10/22/2023 CBC WITH DIFFE RENTI AL/PL ATELE T RBC 4.61 x10e6 /uL 3.77-5 .28 normal Not Available [facility] ([facility]) [address] [place], [address], 10/25/2023 12:13:03 10/21/19 24 10/22/2023 CBC WITH DIFFE RENTI AL/PL ATELE T hemoglobin 14.6 g/dL 11.1-1 5.9 normal Not Available [facility] ([facility]) [address] [place], [address], 10/25/2023 12:13:03 10/21/1910/22/2023 CBC WITH DIFFE RENTI AL/PL ATELE T hematocrit 46.1 % 34.0-4 6.6 normal Not Available [facility] ([facility]) [address] [place], [address], 10/25/2023 12:13:03 10/21/19 24 10/22/2023 CBC WITH DIFFE RENTI AL/PL ATELE T MCV 100 fL 79-97 above high normal Not Available [facility] ([facility]) [address] [place], [address], 10/25/2023 12:13:03 10/21/19 24 10/22/2023 CBC WITH DIFFE RENTI AL/PL ATELE T MCH 31.7 pg 26.6-3 3.0 normal Not Available [facility] ([facility]) [address] [place], [address], 10/25/2023 12:13:03 10/21/19 24 10/22/2023 CBC WITH DIFFE RENTI AL/PL ATELE T MCHC 31.7 g/dL 31.5-3 5.7 normal Not Available [facility] ([facility]) [address] [place], [address], 10/25/2023 12:13:03 10/21/19 24 10/22/2023 CBC WITH DIFFE RENTI AL/PL ATELE T RDW 13.1 % 11.7-1 5.4 Not Available [facility] ([facility]) [address] [place], [address], 10/25/2023 12:13:03 10/21/19 24 10/22/2023 CBC WITH DIFFE RENTI AL/PL ATELE T platelets 200 x10e3 /uL 150-45 0 normal Not Available [facility] ([facility]) [address] [facility], [place], [address], 10/25/2023 12:13:03 10/21/19 24 10/22/2023 CBC WITH DIFFE RENTI AL/PL ATELE T neutrophils 37 % not estab. normal Not Available [facility] ([facility]) [address] [facility], [place], [address], 10/25/2023 12:13:03 10/21/19 24 10/22/2023 CBC WITH DIFFE RENTI AL/PL ATELE T lymphs 52 % not estab. normal Not Available [facility] ([facility]) [address] [facility], [place], [address], 10/25/2023 12:13:03 10/21/19 24 10/22/2023 CBC WITH DIFFE RENTI AL/PL ATELE T monocytes 7 % not estab. normal Not Available [facility] ([facility]) [address] [facility], [place], [address], 10/25/2023 12:13:03 10/21/19 24 10/22/2023 CBC WITH DIFFE RENTI AL/PL ATELE T eos 3 % not estab. normal Not Available [facility] ([facility]) [address] [facility], [place], [address], 10/25/2023 12:13:03 10/21/19 24 10/22/2023 CBC WITH DIFFE RENTI AL/PL ATELE T basos 1 % not estab. 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 0 normal Not Available [facility] ([facility]) [address] [place], [address], 10/25/2023 12:13:03 10/21/19 24 10/22/2023 CBC WITH DIFFE RENTI AL/PL ATELE T lymphs (absolute) 4.3 x10e3 /uL 0.7-3. 1 above high normal Not Available [facility] ([facility]) [address] [place], [address], 10/25/2023 12:13:03 10/21/19 24 10/22/2023 CBC WITH DIFFE RENTI AL/PL ATELE T monocytes(ab solute) 0.6 x10e3 /uL 0.1-0. 9 normal Not Available [facility] ([facility]) [address] [place], [address], 10/25/2023 12:13:03 10/21/19 24 10/22/2023 CBC WITH DIFFE RENTI AL/PL ATELE T eos (absolute) 0.3 x10e3 /uL 0.0-0. 4 normal Not Available [facility] ([facility]) [address] [place], [address], 10/25/2023 12:13:03 10/21/19 24 10/22/2023 CBC WITH DIFFE RENTI AL/PL ATELE T baso (absolute) 0.1 x10e3 /uL 0.0-0. 2 normal Not Available [facility] ([facility]) [address] [place], [address], 10/25/2023 12:13:03 10/21/19 24 10/22/2023 CBC WITH DIFFE RENTI AL/PL ATELE T immature granulocytes 0 % not estab. Not Available [facility] ([facility]) [address] [facility], [place], [address], 10/25/2023 12:13:03 10/21/19 24 10/22/2023 CBC WITH DIFFE RENTI AL/PL ATELE T immature grans (abs) 0.0 x10e3 /uL 0.0-0. 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 METAB OLIC PANEL (14) glucose 268 mg/dL 70-99 above high normal Not Available [facility] ([facility]) [address] [facility], [place], [address], 10/25/2023 12:13:05 10/21/19 24 10/22/2023 COMP. METAB OLIC PANEL (14) BUN 31 mg/dL 8-27 above high normal Not Available [facility] ([facility]) [address] [facility], [place], [address], 10/25/2023 12:13:05 10/21/19 24 10/22/2023 COMP. METAB OLIC PANEL (14) creatinine 1.59 mg/dL 0.57-1 .00 above high normal Not Available [facility] ([facility]) [address] [facility] [place], [address], 10/25/2023 12:13:05 10/21/19 24 10/22/2023 COMP. METAB OLIC PANEL (14) eGFR 32 mL/mi n/1.7 3 >59 below low normal Not Available [facility] ([facility]) [address] [facility] [place], [address], 10/25/2023 12:13:05 10/21/19 24 10/22/2023 COMP. METAB OLIC PANEL (14) BUN/creatini ne ratio 19 12-28 normal Not Available [facility] ([facility]) [address] [facility] [place], [address], 10/25/2023 12:13:05 10/21/19 24 10/22/2023 COMP. METAB OLIC PANEL (14) sodium 138 mmol/ L 134-14 4 normal Not Available [facility] ([facility]) [address] [facility] [place], [address], 10/25/2023 12:13:05 10/21/19 24 10/22/2023 COMP. METAB OLIC PANEL (14) potassium 4.5 mmol/ L 3.5-5. 2 normal Not Available [facility] ([facility]) [address] [facility] [place], [address], 10/25/2023 12:13:05 10/21/19 24 10/22/2023 COMP. METAB OLIC PANEL (14) chloride 94 mmol/ L 96-106 below low normal Not Available [facility] ([facility]) [address] [facility] [place], [address], 10/25/2023 12:13:05 10/21/19 24 10/22/2023 COMP. METAB OLIC PANEL (14) carbon dioxide, total 27 mmol/ L 20-29 normal Not Available [facility] ([facility]) [address] [place], [address], 10/25/2023 12:13:05 10/21/19 24 10/22/2023 COMP. METAB OLIC PANEL (14) calcium 10.2 mg/dL 8.7-10 .3 normal Not Available [facility] ([facility]) [address] [place], [address], 10/25/2023 12:13:05 10/21/19 24 10/22/2023 COMP. METAB OLIC PANEL (14) protein, total 7.5 g/dL 6.0-8. 5 normal Not Available [facility] ([facility]) [address] [place], [address], 10/25/2023 12:13:05 10/21/19 24 10/22/2023 COMP. METAB OLIC PANEL (14) albumin 4.4 g/dL 3.7-4. 7 normal Not Available [facility] ([facility]) [address] [place], [address], 10/25/2023 12:13:05 10/21/19 24 10/22/2023 COMP. METAB OLIC PANEL (14) globulin, total 3.1 g/dL 1.5-4. 5 Not Available [facility] ([facility]) [address] [place], [address], 10/25/2023 12:13:05 10/21/19 24 10/22/2023 COMP. METAB OLIC PANEL (14) bilirubin, total 0.7 mg/dL 0.0-1. 2 normal Not Available [facility] ([facility]) [address] [place], [address], 10/25/2023 12:13:05 10/21/19 24 10/22/2023 COMP. METAB OLIC PANEL (14) alkaline phosphatase 93 IU/L 44-121 normal Not Available [facility] ([facility]) [address] [place], [address], 10/25/2023 12:13:05 10/21/19 24 10/22/2023 COMP. METAB OLIC PANEL (14) AST (SGOT) 27 IU/L 0-40 normal Not Available [facility] ([facility]) [address] [place], [address], 10/25/2023 12:13:05 10/21/19 24 10/22/2023 COMP. METAB OLIC PANEL (14) ALT (SGPT) 21 IU/L 0-32 normal Not Available [facility] ([facility]) [address] [place], [address], 10/25/2023 12:13:05 10/21/19 24 10/22/2023 VITAM IN B12 AND FOLAT E vitamin B12 778 pg/mL 232-12 45 normal Not Available [facility] ([facility]) [address] [facility] [place], [address], 10/25/2023 12:13:06 10/21/19 24 10/22/2023 VITAM IN B12 AND FOLAT E folate (folic acid), serum 11.5 NG/mL >3.0 normal A serum folat e amber ntrat ion of less than 3.1 ng/mL is consi dered to repre sent clini josh defic iency . Not Available [facility] ([facility]) [address] [facility] [place], [address], 10/25/2023 12:13:06 10/21/19 24 10/25/2023 VITAM IN B6, PLASM A vitamin B6 12.5 ug/L 3.4-65 .2 normal Defic iency : <3.4 Zoe nal: 3.4 - 5.1 Adequ ate: >5.1 Not Available [facility] ([facility]) [address] [facility] [place], [address], 10/25/2023 12:13:06 10/21/19 24 10/22/2023 VITAM IN D, 25-HY DROXY vitamin D, 25-hydroxy 45.7 NG/mL 30.0-1 00.0 Vitam in D defic iency has been defin ed by the Insti tute of Medic ine and an Endoc rine Socie ty pract ice guide line as a level of serum 25-OH vitam in D less than 20 ng/mL (1,2) . The Endoc rine Socie ty went on to furth er defin e vitam in D insuf ficie ncy as a level betwe en 21 and 29 ng/mL (2). 1. IOM (Inst itute of Medic ine). 2010. Anni ry refer corrye lynn es for calci um and D. Kenneth lopez [place]: [facility] . 2. Jon lopez MF, Huseyin oscar [place], Kelly off-F errar i LIZ, et al. Evalu ation , treat ment, and preve ntion of vitam in D defic iency : an Endoc rine Socie ty clini josh pract ice guide line. JCEM. 2010; 96(7) :1911 -30. Not Available [facility] ([facility]) [address] [facility], [place], [address], 10/25/2023 12:13:07 10/21/19 24 10/21/2023 HbA1c (hemo globi n A1c), blood HbA1C 8.1 % Not Available [address] , [place], [address], 10/17/2023 10:58:29 10/21/19 24 10/21/2023 micro album in/cr eatin ine, mass ratio , urine Microalbumin 10 mg/L Not Available [address] , [place], [address], 10/21/2023 10:50:53 10/21/19 24 10/21/2023 micro album in/cr eatin ine, mass ratio , urine Creatinine 50 mg/dL Not Available [address] , [place], [address], 10/21/2023 10:50:53 10/21/19 24 10/21/2023 micro album in/cr eatin ine, mass ratio , urine Ratio <30 mg/g normal Not Available [address] , [place], [address], 10/21/2023 10:50:53 10/21/19 24 10/21/2023 gluco se, finge rstic k, blood Blood Glucose: mg/dl 243 Not Available [address] , [place], [address], 10/17/2023 10:58:28 06/28/19 24 06/27/2023 XR, chest , 2 view No observ ation record ed. [address], [place], [address], 07/09/2023 16:29:44 07/18/19 24 US, carot id arter y No observ ation record ed. [address] , [place], [address], 07/18/2023 12:54:41 07/24/19 24 07/19/2023 imagi ng/di agnos tic resul t No observ ation record ed. [address], [place], [address], 07/26/2023 11:01:14 08/01/19 24 08/01/2023 CT, cervi josh spine , w/o contr ast No observ ation record ed. [email or web address] , [place], [address], 08/06/2023 09:24:34 02/11/20 24 02/11/2024 DEXA No observ ation record ed. Psychiatric ([facility]) [address] [facility] [place], [address], 02/13/2024 08:59:09 Result Notes None recorded. 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 3664291234837 09 Active 2020 Rebecca Pack, [facility] [address], [place], [address], [place] [facility] 18:18:54 Chronic kidney disease due to type 2 diabetes mellitus 547450111645 Active 2020 Rebecca Pack, [facility] [address], [place], [address], [place] [facility] 18:18:59 Benign essential hypertensio n 9922494 Active 2020 Rebecca Pack, [facility] [address], [place], [address], [place] [facility] 18:19:01 Coronary arterioscle rosis 78518808 Active 2020 Rebecca Pack, [facility] [address], [place], [address], [place] [facility] 18:19:04 Mixed hyperlipide arpita 852357853 Active 2020 Rebecca Pack, [facility] [address], [place], [address], [place] [facility] 18:19:05 Acquired hypothyroid ism 111531490 Active 2020 Rebecca Pack, [facility] [address], [place], [address], [place] [facility] 18:19:08 Gout 72913736 Active 2020 Rebecca Pack, [facility] [address], [place], [address], [place] [facility] 18:19:11 Gastroesoph ageal reflux disease without esophagitis 083641540 Active 2020 Rebecca Pack, [facility] [address], [place], [address], [place] [facility] 18:19:14 Senile osteoporosi s 53485533 Active 2020 Rebecca Pack, [facility] [address], [place], [address], [place] [facility] 18:19:19 Seasonal allergic rhinitis 682404578 Active Champ Merlin null, [place] - [facility] 7 15:47:54 Arthritis 4318017 Active Champ Merlin [place] [facility] 7 15:48:05 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 Procedures Surgical History Date Name Laterality Status Provider Name and Address Organization Details Recorded Time 10/21/19 Negative Microalbumin completed Champ Merlin [place] - [facility] 10/21/2023 10:49:51 10/21/19 24 A1C level 8.0 to 9.0 completed Champ Merlin [place] - [facility] 10/21/2023 10:57:03 07/18/19 A1C level 8.0 to 9.0 completed Champ Merlin [place] [facility] 07/18/2023 09:33:10 04/18/19 24 A1C level 8.0 to 9.0 completed Champ Merlin [place] [facility] 04/18/2023 14:41:38 12/26/19 A1C level 7.0 to 7.9 completed Champ Merlin [place] [facility] 12/25/2022 08:43:38 09/13/19 23 Negative Microalbumin completed Noni Benedict [place] [facility] 09/12/2022 13:05:11 09/13/19 23 A1C level 7.0 to 7.9 completed Noni Benedict [place] [facility] 09/12/2022 13:05:05 06/15/19 23 A1C level 7.0 to 7.9 completed Champ Boyer [place] - [facility] 06/14/2022 11:11:23 03/06/19 23 A1C level 7.0 to 7.9 completed Champ Boyer [place] [facility] 03/06/2022 10:32:28 11/28/19 22 A1C level 8.0 to 9.0 completed Champ Boyer [place] [facility] 11/27/2021 12:34:58 08/23/19 22 A1C level 7.0 to 7.9 completed Champ Boyer [place] [facility] 08/22/2021 16:10:11 04/26/19 22 Suture/Staple removal completed Arti Sanchez APRN [address], [place], [address], [place] [facility] 04/25/2021 15:32:16 04/18/19 22 Punch Biopsies, Multiple completed Arti Sanchez APRN [address], [place], [address], [place] [facility] 04/18/2021 13:38:29 02/07/20 A1C level 8.0 to 9.0 completed Champ Boyer [place] [facility] 02/06/2021 10:44:39 09/30/19 21 A1C level 7.0 to 7.9 completed Champ Boyre [place] [facility] 09/29/2020 08:34:22 06/22/19 21 A1C level 7.0 to 7.9 completed Champ Boyer [place] [facility] 06/21/2020 08:53:01 03/16/19 21 Diastolic B/P less than 80 mm Hg completed Erika Zelaya [place] [facility] 03/16/2020 08:45:08 03/16/19 21 Systolic B/P 130-139 mm Hg completed Erika Zelaya [place] [facility] 03/16/2020 08:44:59 03/16/19 21 A1C level 7.0 to 7.9 completed Erika Adamsoncell [place] - [facility] 03/16/2020 08:45:17 03/10/19 21 Systolic B/P less than 130 mm Hg completed Champ Merlin [place] [facility] 03/10/2020 11:38:31 03/10/19 21 Diastolic B/P less than 80 mm Hg completed Champ Merlin [place] [facility] 03/10/2020 11:38:29 03/10/19 21 Positive Microalbumin completed Champ Merlin [place] [facility] 03/10/2020 11:38:42 03/10/19 21 A1C level 6.9 and below completed Champ Merlin [place] [facility] 03/10/2020 11:42:06 01/04/20 20 Diastolic B/P less than 80 mm Hg completed Champ Merlin [place] [facility] 01/04/2020 10:44:16 01/04/20 20 Systolic B/P 130-139 mm Hg completed Champ Merlin [place] [facility] 01/04/2020 10:44:19 12/03/19 20 Systolic B/P less than 130 mm Hg completed Champ Merlin [place] [facility] 12/03/2019 09:53:03 12/03/19 20 Diastolic B/P less than 80 mm Hg completed Champ Merlin [place] [facility] 12/03/2019 09:52:59 12/03/19 20 A1C level 6.9 and below completed Champ Merlin [place] [facility] 12/03/2019 09:56:00 09/01/19 20 Systolic B/P less than 130 mm Hg completed Champ Merlin [place] [facility] 09/01/2019 11:06:34 09/01/19 20 Diastolic B/P less than 80 mm Hg completed Champ Merlin [place] [facility] 09/01/2019 11:06:31 09/01/19 20 A1C level 6.9 and below completed Champ Merlin [place] [facility] 09/01/2019 11:08:50 03/02/19 20 Systolic B/P less than 130 mm Hg completed Erika Malden [place] [facility] 03/02/2019 09:33:17 03/02/19 20 Diastolic B/P less than 80 mm Hg completed Erika Malden [place] [facility] 03/02/2019 09:33:25 01/06/20 20 A1C level 6.9 and below completed Erika Nathalie [place] - [facility] 03/02/2019 09:33:07 11/26/19 19 Negative Microalbumin completed Champ Boyer [place] - [facility] 11/25/2018 08:47:26 11/26/19 19 A1C level 6.9 and below completed Champ ZHOU [facility] 11/25/2018 08:47:23 05/14/19 19 A1C level 6.9 and below completed Champ ZHOU - [facility] 05/13/2018 08:32:18 Cholecystectomy, laparoscopic completed Champ Boyer [place] - [facility] 04/12/2016 15:55:22 D&c of cervical stump completed Champ Boyer [place] - [facility] 04/12/2016 15:55:46 Appendectomy completed Champ Boyer [facility] 11/25/2018 08:35:27 Imaging Results None recorded. Procedure Notes None recorded. Medical Equipment None Reported. Allergies Allergen ID Allergen Name Allergen Category Reaction Reaction Severity Criticality Documentation Date Start Date Code Code System Note Provider Name and Address Organization Details Recorded Time 393647 metformin medicatio n nausea Not available Not available 05/13/2018 6809 RxNorm nause a Champ Boyer [facility] 9 08:27:17 [id number] Levemir medicatio n nausea Not available Not available 05/13/2018 44726 0 RxNorm Champ paris, [facility] 9 08:27:36 21207 iodine medicatio n Not available Not available Not available 12/02/20152012 5933 RxNorm rash Champ paris, [facility] 0 10:42:20 92070 amoxicill in trihydrat e medicatio n Not available Not available Not available 12/02/20152012 93029 8 RxNorm React ion: sick, vomit s; Not Available [facility] 6 08:29:06 66784 Product containin g 3-hydroxy -3-methyl glutaryl- coenzyme A reductase inhibitor (product) medicatio n Not available Not available Not available 08/05/2017 02929 009 SNOMED leg cramp ing Champ paris, [facility] 8 14:08:37 Medications Name Sig Start Date Stop Date Status Note LastModified by Organization Details LastModified Time probiotic gx 08/31 completed Not Available Not Available Not Available custom inserts rt USE DIRECTED 06/21 completed Not Available Not Available Not Available Prescript ion - Prior Authoriza tion Request 05/13 completed Not Available Not Available Not Available tndrft white lthr lace USE DIRECTED 08/31 completed Not Available Not Available Not Available custom inserts lt USE DIRECTED 06/21 completed Not Available Not Available Not Available furosemid e 40 mg tablet Take 1 tablet every day by oral route in the morning. 2024 active PROVIDER SHANTELLE PÉREZ Not Available Not Available Not Available nystatin 100,000 unit/mL oral suspensio n SWISH 1 TEASPOON FUL (5 MLS) BY MOUTH EVERY 6 HOURS. SWISH FOR 2 MINUTES THEN SPIT OUT. 07/10 completed Not Available Not Available Not Available carvedilo l 6.25 mg tablet TAKE ONE TABLET BY MOUTH TWICE DAILY 2024 active PROVIDER KODAK ESPINOSA Not Available Not Available Not Available prednison e 10 mg tablet TAKE 1 TABLET BY MOUTH TWICE DAILY. 07/10 completed Not Available Not Available Not Available doxycycli ne hyclate 100 mg capsule TAKE ONE CAPSULE BY MOUTH 2 TIMES DAILY WITH FOOD. 07/15 completed Not Available Not Available Not Available atorvasta tin 20 mg tablet take 1 tablet (20 mg) by oral route once daily 06/05 completed atorvast atin Oral tablet 20 mg;Recor ded Status: Recorded on: 08/26/19 13 9:07AM;U ser: [email or web address] Not Available Not Available Not Available clindamyc in HCl 300 mg capsule TAKE TWO (2) BY MOUTH AT LEAST ONE (1) HOUR BEFORE SURGERY 08/22 completed Not Available Not Available Not Available cetirizin e 10 mg tablet 09/04 completed Not Available Not Available Not Available Pneumovax -23 25 mcg/0.5 mL injection solution 02/11 completed Not Available Not Available Not Available azithromy ling 250 mg tablet TAKE 2 TABLETS BY MOUTH THE 1ST DAY, THEN TAKE 1 TABLET BY MOUTH EVERY DAY FOR 4 DAYS. 07/10 completed Not Available Not Available Not Available aspirin 325 mg tablet take 1 tablet (325 mg) by oral route every 6 hours as needed 06/05 completed aspirin Oral tablet 325 mg;Recor ded Status: Recorded on: 08/26/19 13 9:07AM;U ser: welch;I ndicatio n: Pain - (46.1731 06) Not Available Not Available Not Available cetirizin e 5 mg tablet 06/05 completed Not Available Not Available Not Available Glucagon Emergency Kit 1 mg solution for injection Take 1 mg as needed by injectio n route as needed. 07/10 completed Not Available Not Available Not Available hydrocodo ne 5 mg-acetam inophen 325 mg tablet 08/22 completed Not Available Not Available Not Available ondansetr on HCl 4 mg tablet 03/10 completed Not Available Not Available Not Available Niaspan 500 mg tablet,ex tended release take 1 tablet (500 mg) by oral route once daily at bedtime after a low-fat snack 06/05 completed Niaspan Extended -Release Oral tablet extended release 24 hr 500 mg;Recor ded Status: Recorded on: 08/26/19 13 9:07AM;U ser: welchc Not Available Not Available Not Available diphenoxy late-atro pine 2.5 mg-0.025 mg tablet Take 2 tablets 4 times a day by oral route for 4 days. 03/10 completed Not Available Not Available Not Available meclizine 12.5 mg tablet 09/04 completed Not Available Not Available Not Available metronida zole 500 mg tablet 11/25 completed Not Available Not Available Not Available acetamino phen 300 mg-codein e 30 mg tablet 12/05 completed Not Available Not Available Not Available clopidogr el 75 mg tablet TAKE ONE (1) TABLET BY MOUTH ONCE A DAY. active Not Available Not Available No t Available allopurin ol 100 mg tablet Take 0.5 tablets every day by oral route. 2024 active PROVIDER DONALDO COURTNEY Not Available Not Available Not Available sulfameth oxazole 800 mg-trimet hoprim 160 mg tablet TAKE ONE (1) TABLET EVERY 12 HOURS BY MOUTH FOR 10 DAYS. 03/06 completed Not Available Not Available Not Available omeprazol e 40 mg capsule,d elayed release TAKE (1) CAPSULE BY MOUTH ONCE A DAY. 12/27 completed Not Available Not Available Not Available aspirin 81 mg tablet,de layed release TAKE ONE (1) TABLET EVERY DAY BY ORAL ROUTE FOR 90 DAYS. 12/27 completed Not Available Not Available Not Available spironola ctone 25 mg tablet TAKE ONE (1) TABLET BY MOUTH EVERY DAY active 1 TABLET M, W, F AND 1/2 TABLET GONZALEZ, TU, TH, SA Not Available Not Available Not Available Cytomel 5 mcg tablet take 2 tablets by oral route once 03/01 completed Cytomel Oral tablet 5 mcg;Pres cribe Status: Prescrib ed on: 09/03/19 13 1:59PM;U ser: welchc;E st. Completi on: 03/01/19 14;Indic ation: Mild Hypothyr oidism - (03.2449 06);Phar Rylan fied: 09/03/19 13 1:59PM Not Available Not Available Not Available carvedilo l 3.125 mg tablet 1bid 04/22 completed Not Available Not Available Not Available ondansetr on 8 mg disintegr ating tablet Place 1 tablet 3 times a day by translin gual route as needed. 09/12 completed Not Available Not Available Not Available pantopraz ole 20 mg tablet,de layed release Take 2 tablets every day by oral route. 08/31 completed Not Available Not Available Not Available levothyro xine 75 mcg tablet TAKE ONE (1) TABLET BY MOUTH EVERY DAY 08/10 completed DOSE INCREASE D TO 88MCG Not Available Not Available Not Available levothyro xine 100 mcg tablet 09/04 completed Not Available Not Available Not Available levothyro xine 88 mcg tablet Take 1 tablet every day by oral route. 2024 active PROVIDER DONALDO COURTNEY Not Available Not Available Not Available sodium polystyre ne sulfonate 15 gram/60 mL oral suspensio n 06/05 completed Not Available Not Available Not Available metoclopr amide 5 mg tablet 11/25 completed Not Available Not Available Not Available meclizine 25 mg tablet TAKE (1) TABLET THREE TIMES DAILY NEEDED. 08/22 completed Not Available Not Available Not Available benzonata te 100 mg capsule Take 1 capsule 3 times a day by oral route as needed for 30 days. 06/21 completed Not Available Not Available Not Available levothyro xine 50 mcg tablet Take 1 tablet every day by oral route as directed for 90 days. 12/06 completed increase d to 75 mcg Not Available Not Available Not Available cephalexi n 500 mg capsule 12/05 completed Not Available Not Available Not Available pantopraz ole 40 mg tablet,de layed release Take 1 tablet every day by oral route for 90 days. active Not Available Not Available No t Available levothyro xine 125 mcg tablet take 1 tablet (125 mcg) by oral route once daily 06/05 completed levothyr oxine Oral tablet 125 mcg;Javed rded Status: Recorded on: 08/26/19 13 9:07AM;U ser: welchc;I ndicatio n: Hypothyr oidism - () Not Available Not Available Not Available ranitidin e 150 mg tablet 1 tab bid 09/04 completed causing nausea Not Available Not Available Not Available lisinopri l 10 mg tablet 09/04 completed Not Available Not Available Not Available promethaz ine 25 mg tablet 09/04 completed Not Available Not Available Not Available aspirin 81 mg chewable tablet CHEW ONE (1) TABLET EVERY DAY BY ORAL ROUTE FOR 90 DAYS. 2024 active Not Available Not Available Not Avai lable hydrocort isone 2.5 % topical cream APPLY A THIN LAYER TO THE AFFECTED AREA(S) BY TOPICAL ROUTE TWO (2) TIMES PER DAY 07/10 completed Not Available Not Available Not Available lisinopri l 5 mg tablet TAKE 1 TABLET BY MOUTH ONCE A DAY. 11/22 completed Patient is not taking per CMR Not Available Not Available Not Available mometason e 0.1 % topical ointment 1 q day 02/11 completed Not Available Not Available Not Available furosemid e 20 mg tablet TAKE (1) TABLET BY MOUTH TWICE A DAY. 08/10 completed DOSE CHANGED, 40MG QAM Not Available Not Available Not Available ergocalci ferol (vitamin D2) 1,250 mcg (50,000 unit) capsule 09/04 completed Not Available Not Available Not Available Novolog U-100 Insulin aspart 100 unit/mL subcutane ous solution inject by subcutan eous route as per insulin sliding scale protocol 04/22 completed Novolog Subcutan eous Solution 100 unit/mL; Recorded Status: Recorded on: 08/26/19 13 9:07AM;U ser: welchc;I ndicatio n: Type 2 Diabetes Mellitus - () Not Available Not Available Not Available dexametha sone sodium phosphate 4 mg/mL injection solution Inject 1 mL by intramus cular route. 07/17 completed Not Available Not Available Not Available levofloxa ling 750 mg tablet 11/25 completed Not Available Not Available Not Available cefdinir 300 mg capsule 09/04 completed Not Available Not Available Not Available fluticaso ne propionat e 50 mcg/actua tion nasal spray,porsha pension USE 2 SPRAYS IN EACH NOSTRIL ONCE A DAY. 07/10 completed Not Available Not Available Not Available lisinopri l 2.5 mg tablet 1 q day 04/22 completed increase in dose to 5 Not Available Not Available Not Available doxycycli ne hyclate 100 mg tablet TAKE 1 TABLET BY MOUTH EVERY 12 HOURS 02/06 completed Not Available Not Available Not Available spironola ctone 50 mg tablet 09/04 completed Not Available Not Available Not Available amoxicill in 500 mg-potass ium clavulana te 125 mg tablet 09/04 completed Not Available Not Available Not Available Acidophil us capsule TAKE TWO (2) CAPSULES BY MOUTH EVERY DAY 07/15 completed Not Available Not Available Not Available oxycodone 5 mg tablet 11/25 completed Not Available Not Available Not Available meclizine 25 mg chewable tablet TAKE (1) TABLET BY MOUTH THREE TIMES DAILY NEEDED. 2024 active Not Available Not Available Not Avai lable trimethob enzamide 300 mg capsule 09/04 completed Not Available Not Available Not Available Novolog Mix 70-30 FlexPen U-100 Insulin 100 unit/mL subcutane ous pen 06/05 completed Not Available Not Available Not Available Zetia 10 mg tablet Take 1 tablet every day by oral route. 03/02 completed Not Available Not Available Not Available Vitamin D3 25 mcg (1,000 unit) capsule q day 08/31 completed Not Available Not Available Not Available Novolog FlexPen U-100 Insulin aspart 100 unit/mL (3 mL) subcutane ous INJECT 24 UNITS SUBCUTAN EOUSLY BEFORE BREAKFAS T, THEN 16 UNITS BEFORE LUNCH AND EVENING MEAL RX WILL LAST 53 DAYS 2024 active Not Available Not Available Not Avai lable Cinnamon 500 mg capsule take 1 capsule by oral route twice 06/05 completed Cinnamon Oral capsule 500 mg;Recor ded Status: Recorded on: 08/26/19 13 9:07AM;U ser: welchc Not Available Not Available Not Available Lyrica 75 mg capsule take 1 capsule by oral route 2 times a day for 30 days 06/22 completed Lyrica Oral capsule 75 mg;Recor ded Status: Recorded on: 12/25/19 13 9:36AM;U ser: stroopr; Est. Completi on: 06/23/19 14 Not Available Not Available Not Available biotin 08/25 completed biotin Oral;Rec orded Status: Recorded on: 08/26/19 13 9:07AM;U ser: welchc Not Available Not Available Not Available furosemid e 40 mg q day 04/22 completed Not Available Not Available Not Available flaxseed 1200 mg q day 09/04 completed Not Available Not Available Not Available fenofibra te nanocryst allized 145 mg tablet TAKE ONE (1) TABLET EVERY DAY BY ORAL ROUTE FOR 90 DAYS. 11/17 completed Not Available Not Available Not Available cholecalc iferol (vitamin D3) 25 mcg (1,000 unit) tablet TAKE TWO (2) TABLETS EVERY DAY BY ORAL ROUTE FOR 90 DAYS. 08/10 completed DOSE DECREASE D TO ONCE DAILY Not Available Not Available Not Available Januvia 100 mg tablet take 1 tablet (100 mg) by oral route once daily 06/05 completed Januvia Oral tablet 100 mg;Recor ded Status: Recorded on: 08/26/19 13 9:07AM;U ser: welchc;I ndicatio n: Type 2 Diabetes Mellitus - (03.2500 00) Not Available Not Available Not Available NovoFine 30 30 gauge x 1/3 needle 12/02 completed Not Available Not Available Not Available Fish Oil 1,000 mg capsule take 1 capsule by oral route twice 09/04 completed Fish Oil Oral capsule 1,000 mg;Recor ded Status: Recorded on: 08/26/19 13 9:07AM;U ser: welchc Not Available Not Available Not Available Lantus Solostar U-100 Insulin 100 unit/mL (3 mL) subcutane ous pen Inject 15 units every day by subcutan eous route at bedtime for 30 days. 03/02 completed Not Available Not Available Not Available cholecalc iferol (vitamin D3) 50 mcg (2,000 unit) capsule Take 1 capsule every day by oral route. 2024 active PROVIDER DONALDO COURTNEY Not Available Not Available Not Available Kionex (with sorbitol) 15 gram-19.3 gram/60 mL oral suspensio n 09/04 completed Not Available Not Available Not Available Uloric 40 mg tablet 1 q day 04/22 completed Not Available Not Available Not Available Zyrtec 10 mg capsule 06/05 completed Zyrtec Oral capsule 10 mg;Recor ded Status: Recorded on: 08/26/19 13 9:07AM;U ser: welchc;I ndicatio n: Seasonal Allergic Rhinitis - (4779 05) Not Available Not Available Not Available Prevnar 13 (PF) 0.5 mL intramusc ular syringe 06/05 completed Not Available Not Available Not Available Xifaxan 550 mg tablet Take 1 tablet 3 times a day by oral route for 12 days. 07/15 completed Not Available Not Available Not Available BD Ultra-Fin e Britany Pen Needle 32 gauge x /32 USE 4 TIMES A DAY active Not Available Not Available No t Available Probiotic 10 billion cell capsule Take 1 capsule every day by oral route for 90 days. 09/12 completed Not Available Not Available Not Available Probiotic 1 q day 11/22 completed Not Available Not Available Not Available Centrum Silver Ultra Women's tablet take 1 tablet by oral route once 06/05 completed Centrum Silver Ultra Women's Oral tablet;R ecorded Status: Recorded on: 08/26/19 13 9:07AM;U ser: [email or web address] Not Available Not Available Not Available [place] 3 Fish Oil 684 mg-1,200 mg capsule,d elayed release 09/04 completed [place] 3 Fish Oil Oral capsule, delayed release( DR/EC) 684-1,20 0 mg;Recor ded Status: Recorded on: 08/26/19 13 9:07AM;U ser: [email or web address] Not Available Not Available Not Available digoxin 0.25 mg/5 mL (250 mcg/5 mL) (50 mcg/mL) (5 mL) oral solution take 5 millilit ers (0.25 mg) by oral route once daily 06/05 completed digoxin Oral Solution 0.25 mg/5 mL (5 mL);Javed rded Status: Recorded on: 08/26/19 13 9:07AM;U ser: [email or web address] Not Available Not Available Not Available Levemir FlexTouch U-100 Insulin 100 unit/mL (3 mL) subcutane ous pen Inject 15 units every day by subcutan eous route at bedtime for 30 days. 03/02 completed Not Available Not Available Not Available True Metrix Glucose Test Strip CHECK 6 TIMES A DAY 06/21 completed Not Available Not Available Not Available True Metrix Glucose Meter 12/02 completed Not Available Not Available Not Available Repatha SureClick 140 mg/mL subcutane ous pen injector INJECT 140MG SUBCUTAN EOUSLY EVERY TWO (2) WEEKS active Not Available Not Available No t Available Lactobaci llus acidophil us 500 million cell capsule TAKE 2 CAPSULES BY MOUTH EVERY DAY 07/15 completed Not Available Not Available Not Available Toujeo Max U-300 SoloStar 300 unit/mL (3 mL) subcutane ous insulin pen INJECT 18 UNITS EVERY DAY BY SUBCUTAN EOUS ROUTE AT BEDTIME FOR 90 DAYS. 2024 active Not Available Not Available Not Avai lable Flucelvax Quad 7250-7234 (PF) 60 mcg (15 mcg x 4)/0.5 mL IM syringe 02/11 completed Not Available Not Available Not Available FreeStyle Pancho 2 Sensor kit USE DIRECTED 07/10 completed Not Available Not Available Not Available Leqvio 284 mg/1.5 mL subcutane ous syringe Inject 1.5 mL by subcutan eous route for 90 days. 12/27 completed Not Available Not Available Not Available Vitals Date Recorded Body height Body mass index (BMI) Body weight Body temperature Heart rate Oxygen saturation Oxygen saturation in Arterial blood by Pulse oximetry Respiratory rate Systolic blood pressure Diastolic blood pressure Provider Name and Address Organization Details Last Updated DateTime 4 162.56 cm 32.6 kg/m2 89155.2 5 g 98.2 [degF] 74 /min 90 % 90 % 16 /min 106 mm[Hg] 60 mm[Hg] Champ Boyer [place] - [facility] 4 14:35:37 Date Recorded Body height Body mass index (BMI) Body weight Body temperature Heart rate Oxygen saturation Oxygen saturation in Arterial blood by Pulse oximetry Respiratory rate Systolic blood pressure Diastolic blood pressure Provider Name and Address Organization Details Last Updated DateTime 4 162.56 cm 31.6 kg/m2 27192 g 97.7 [degF] 70 /min 92 % 92 % 16 /min 120 mm[Hg] 60 mm[Hg] Champ Boyer [place] - [facility] 4 09:28:41 Date Recorded Body height Body mass index (BMI) Body weight Heart rate Oxygen saturation Oxygen saturation in Arterial blood by Pulse oximetry Respiratory rate Body temperature Systolic blood pressure Diastolic blood pressure Provider Name and Address Organization Details Last Updated DateTime 3 162.56 cm 31.5 kg/m2 51111.1 5 g 70 /min 97 % 97 % 18 /min 97.7 [degF] 122 mm[Hg] 70 mm[Hg] Noin Benedict [place] - [facility] 3 12:58:35 Date Recorded Body height Body mass index (BMI) Body weight Body temperature Heart rate Oxygen saturation Oxygen saturation in Arterial blood by Pulse oximetry Respiratory rate Provider Name and Address Organization Details Last Updated DateTime 4 162.56 cm 30.4 kg/m2 20182.9 5 g 97.8 [degF] 77 /min 92 % 92 % 18 /min Champ Boyer [place] - [facility] 4 10:47:19 Date Recorded Body height Body mass index (BMI) Body weight Body temperature Heart rate Oxygen saturation Oxygen saturation in Arterial blood by Pulse oximetry Respiratory rate Systolic blood pressure Diastolic blood pressure Provider Name and Address Organization Details Last Updated DateTime 3 162.56 cm 32.8 kg/m2 41976.1 4 g 97.9 [degF] 69 /min 95 % 95 % 18 /min 128 mm[Hg] 80 mm[Hg] Champ Boyer [place] - [facility] 3 08:33:42 Social History Question Answer Notes LastModified by Organizat ion Details LastModified Time Tobacco Smoking Status Never Smoker Champ Boyer [place], [place] - [facility] 06/14/2022 11:07:23 Able To Swim? Yes Information not available 06/05/2016 Do You Have An Advance Directive? Yes Information n ot available 06/05/2016 Do You Wear A Helmet When Biking? No Information not available 06/05/2016 Are You Blind Or Do You Have Difficulty Seeing? No Information n ot available 06/05/2016 What Is Your Level Of Caffeine Consumption? Moderate Information not available 06/05/2016 Are You Deaf Or Do You Have Serious Difficulty Hearing? No Information not available 06/05/2016 What Type Of Diet Are You Following? DIABETIC Information n ot available 06/05/2016 Which Illicit Or Recreational Drugs Have You Used? None Information not available 06/05/2016 Swimming/diving No Informati on not available 06/05/2016 Hard Of Hearing Or Deaf In One Or Both Ears? No Information not available 06/05/2016 Legally Blind In One Or Both Eyes? No Information no t available 06/05/2016 Live Alone Or With Others? With Others Information not available 06/05/2016 What Was The Date Of Your Most Recent Tobacco Screening? 07/18/2023 Information not available 07/18/2023 How Many Children Do You Have? 3 Information not available 06/05/2016 Do You Use Protection During Sex? No Information not available 06/05/2016 What Is Your Relationship Status? Information not available 04/12/2016 Seat Belts Used Routinely Yes Information not available 06/05/2016 Are You Sexually Active? Yes Information not available 06/05/2016 Smoke Alarm In Home Yes Information not available 06/05/2016 Are You Passively Exposed To Smoke? No Information no t available 06/05/2016 General Stress Level Low Information not available 06/05/2016 Do You Use Sunscreen Routinely? Yes Information not available 06/05/2016 Has Tobacco Cessation Counseling Been Provided? Yes Information not available 06/14/2022 On What Date Was Tobacco Cessation Counseling Provided? 07/18/2023 Information not available 07/18/2023 Do You Have Difficulty Walking Or Climbing Stairs? No Information not available 06/05/2016 What Contraceptive Method Was Reported At Start Of This Visit? None [email or web address] Information not available 09/12/2022 Do You Have Any Future Plans To Get ? No, I Don't Want To Become Information not available 09/12/2022 Sex: Female Functional Status Question Answer Note LastModified by Organizat ion Details LastModified Time Do you or have you ever used smokeless tobacco? Never used smokeless tobacco Information not available 03/02/2019 Are you currently employed? No Information not available 06/05/2016 Are you able to care for yourself? No Information not available 06/05/2016 Do you have difficulty dressing or bathing? No Information not available 06/05/2016 Do you or have you ever used e-cigarettes or vape? Never used electronic cigarettes Information not available 03/02/2019 What is your exercise level? Occasional Information not available 06/05/2016 Do you use any illicit or recreational drugs? No [email or web address] Information not available 09/12/2022 Do you or have you ever used any other forms of tobacco or nicotine? No [email or web address] Information not available 09/12/2022 What is your level of alcohol consumption? None Information not available 04/12/2016 What is your status? Not [email or web address] Information no t available 09/12/2022 Are you able to walk? YESWOREST Information not available 06/05/2016 Do you have difficulty doing errands alone? No Information not available 06/05/2016 What is your occupation? retired Information not available 06/05/2016 Mental Status Question Answer Note LastModified by Organization D etails LastModified Time Do you have difficulty concentrating, remembering or making decisions? No Information no t available 06/05/2016 Family History Relationship Description Onset Age of this Age Resolved Age Notes LastModified by Organization Details LastModified Time Maternal Grandmother Arthritis Not available 15:51:55 Unspecified Relation Blindness - both eyes Not available 2016 15:52:12 Unspecified Relation Type 2 diabetes mellitus Not available 2016 15:52:25 Unspecified Relation Neoplasm of prostate Not available 2016 15:53:33 Unspecified Relation Suicide Not available 04/12/19 17 15:53:47 Paternal Grandfather Gout Not available 04/12 15:52:41 Paternal Grandmother Myocardial infarction Not available 04/12 15:52:55 Medical History Condition Response Edema Y Arthritis Y Cancer Y Hypothyroidism Y Allergies/Hayfever Y Diabetes Y Hypertension Y Gynecological History Statement/Question Response Menses Monthly N Date of Last Colonoscopy Date of Last Mammogram LMP Approximate Most Recent Bone Density Obstetrics History GPAL:G 0 P 0 0 0 0 Immunizations Vaccine Type Date Status Note Provider Nam e and Address Organization Details Recorded Time Influenza, high-dose, quadrivalent, PF 0 completed Rebecca Pack, SANDR[facility] [address], [place], [address], [facility] [[email or web address] - [facility] 12/03/2019 09:58:40 Influenza, high-dose, trivalent, PF 7 completed Not Available [facility] 03/14/2019 03:54:42 Influenza, high-dose, quadrivalent, PF 1 completed Rebecca Pack, [facility] [address], [place], [address], [place] - [facility] 02/06/2021 10:47:23 Influenza, high-dose, quadrivalent, PF 3 completed Rebecca Pack, [facility] [address], [place], [address], [place] - [facility] 12/25/2022 09:09:39 COVID-19, mRNA, LNP-S, PF, lyndsay-sucrose, 30 mcg/0.3 mL 3 completed Rebecca Pack, [facility] [address], [place], [address], [place] - [facility] 12/25/2022 09:09:39 pneumococcal polysaccharide PPV23 8 completed Champ Merlin null, [facility] 12/09/2017 13:57:16 Influenza, split virus, quadrivalent, preservative 8 completed Champ Merlin null, [facility] 12/09/2017 13:59:30 COVID-19, mRNA, LNP-S, PF, 100 mcg/0.5mL dose or 50 mcg/0.25mL dose 1 completed Champ Merlin null, [facility] 11/27/2021 12:27:44 COVID-19, mRNA, LNP-S, PF, 100 mcg/0.5mL dose or 50 mcg/0.25mL dose 1 completed Champ Merlin null, [place] - [facility] 11/27/2021 12:28:13 COVID-19, mRNA, LNP-S, PF, 50 mcg/0.5 mL dose 1 completed Champ Merlin null, [place] - [facility] 11/27/2021 12:28:43 COVID-19, mRNA, LNP-S, PF, 50 mcg/0.5 mL dose 2 completed Champ Merlin null, [place] - [facility] 11/27/2021 12:29:03 COVID-19, mRNA, LNP-S, bivalent, PF, 50 mcg/0.5 mL or 25mcg/0.25 mL dose 2 completed Champ Merlin null, [place] - [facility] 03/06/2022 10:28:15 influenza, unspecified formulation 2 completed Champ Boyer null, [place] - [facility] 03/06/2022 10:28:35 Influenza, high-dose, trivalent, PF 9 completed Not Available [facility] 03/14/2019 03:56:07 Past Encounters Encounter ID Performer Location Encounter Start Date Encounter Closed Date Diagnosis/Indication Diagnosis SNOMED-CT Code Diagnosis ICD10 Code Diagnosis Note [id number] Rebecca Pack [address] [place] [address] 06/05/2016 11:14:11 06/05/2016 12:23:13 Body mass index 30+ - obesity 870391620 Z68.33 Chronic ki dney disease due to type 2 diabetes mellitus 4679450606 08 E11.22 Coronary arteriosclerosis 87650369 I25.10 Mixed hyperlipidemia 267 436892 E78.2 Benign ess ential hypertension 5424024 I10 Acquired hypothyroidism 454114505 E03.9 Vitamin D deficiency 347 71813 E55.9 [id number] Rebecca Pack APRN [address] [place] [address] 09/04/2016 15:36:46 09/04/2016 17:05:15 Body mass index 30+ - obesity 163494052 Z68.33 Chronic ki dney disease due to type 2 diabetes mellitus 4980933245 08 E11.22 Coronary arteriosclerosis 84971907 I25.10 Mixed hyperlipidemia 267 974275 E78.2 Benign ess ential hypertension 9230647 I10 Acquired hypothyroidism 754731002 E03.9 Vitamin D deficiency 347 07098 E55.9 Senile osteoporosis 1804 0001 M81.0 [id number] Rebecca Pack [facility] [address] [place] [address] 12/05/2016 12:30:46 12/05/2016 13:29:27 Chronic kidney disease due to type 2 diabetes mellitus 6377950789 08 E11.22 Administra tion of influenza vaccine 13950488 Z23 Body mass index 30+ - obesity 978692577 Z68.33 Coronary arteriosclerosis 02271323 I25.10 Mixed hyperlipidemia 267 393100 E78.2 Benign ess ential hypertension 5483088 I10 Acquired hypothyroidism 987448494 E03.9 Vitamin D deficiency 347 43705 E55.9 Senile osteoporosis 1804 0001 M81.0 [id number] Rebecca Pack [address] [place] [address] 04/22/2017 13:57:25 04/22/2017 14:39:15 Chronic kidney disease due to type 2 diabetes mellitus 9332399326 08 E11.22 Body mass index 30+ - obesity 522422476 Z68.33 Coronary arteriosclerosis 78568651 I25.10 Mixed hyperlipidemia 267 102109 E78.2 Benign ess ential hypertension 3123090 I10 Acquired hypothyroidism 106862450 E03.9 Vitamin D deficiency 347 35481 E55.9 Senile osteoporosis 1804 0001 M81.0 Gout 61000783 M10.9 Gastroesop hageal reflux disease without esophagitis 026779136 K21.9 [id number] Rebecca Pack [address] [place] [address] 07/31/2017 09:16:41 07/31/2017 10:02:19 Gout 15386513 M10.9 Coronary arteriosclerosis 48832567 I25.10 Mixed hyperlipidemia 267 627688 E78.2 Benign ess ential hypertension 9640879 I10 Chronic ki dney disease due to type 2 diabetes mellitus 0007736321 08 E11.22 Acquired hypothyroidism 404962219 E03.9 Body mass index 30+ - obesity 696990302 Z68.34 Vitamin D deficiency 347 98003 E55.9 Senile osteoporosis 1804 0001 M81.0 Gastroesop hageal reflux disease without esophagitis 544191071 K21.9 [id number] Rebecca Pack [address] [place] [address] 11/06/2017 10:14:03 11/06/2017 11:31:20 Arthritis 8992908 M19.90 Type 2 evonne betes mellitus 23133304 E11.9 Chronic ki dney disease due to type 2 diabetes mellitus 8591766826 08 E11.22 Gout 60181207 M10.9 Benign ess ential hypertension 6088732 I10 Coronary arteriosclerosis 55798506 I25.10 Mixed hyperlipidemia 267 251306 E78.2 Acquired hypothyroidism 985981818 E03.9 Gastroesop hageal reflux disease without esophagitis 077246054 K21.9 Body mass index 30+ - obesity 441706156 Z68.34 Vitamin D deficiency 347 40213 E55.9 Senile osteoporosis 1804 0001 M81.0 [id number] Rebecca Pack [address] [place] [address] 02/11/2018 08:32:28 02/11/2018 09:37:00 Benign essential hypertension 3470741 I10 Coronary arteriosclerosis 04797626 I25.10 Mixed hyperlipidemia 267 880083 E78.2 Chronic ki dney disease due to type 2 diabetes mellitus 3488943468 08 E11.22 Acquired hypothyroidism 416630616 E03.9 Arthritis 4309092 M19.90 Gout 84002022 M10.9 Gastroesop hageal reflux disease without esophagitis 564871656 K21.9 Body mass index 30+ - obesity 765903800 Z68.34 Vitamin D deficiency 347 22576 E55.9 Senile osteoporosis 1804 0001 M81.0 Acute urin kendra tract infection 082698281 N39.0 [id number] Rebecca Pack [address] [place] [address] 05/13/2018 08:12:07 05/13/2018 09:12:25 Benign essential hypertension 5493411 I10 Coronary arteriosclerosis 67780933 I25.10 Mixed hyperlipidemia 267 126912 E78.2 Chronic ki dney disease due to type 2 diabetes mellitus 9164105630 08 E11.22 Acquired hypothyroidism 654732022 E03.9 Arthritis 0450923 M19.90 Gout 25433833 M10.9 Gastroesop hageal reflux disease without esophagitis 912779703 K21.9 Body mass index 30+ - obesity 373521003 Z68.34 Vitamin D deficiency 347 76512 E55.9 Senile osteoporosis 1804 0001 M81.0 [id number] Rebecca Pack [address] [place] [address] 08/19/2018 08:07:12 08/19/2018 09:42:44 Chronic kidney disease due to type 2 diabetes mellitus 1765945833 08 E11.22 Benign ess ential hypertension 5002931 I10 Coronary arteriosclerosis 46412244 I25.10 Mixed hyperlipidemia 267 299208 E78.2 Acquired hypothyroidism 038420345 E03.9 Arthritis 6618323 M19.90 Gout 83194402 M10.9 Gastroesop hageal reflux disease without esophagitis 861634431 K21.9 Body mass index 30+ - obesity 851804553 Z68.34 Vitamin D deficiency 347 42373 E55.9 Senile osteoporosis 1804 0001 M81.0 [id number] Rebecca Pack [address] [place] [address] 11/25/2018 08:17:03 11/25/2018 09:24:48 Administration of influenza vaccine 02880334 Z23 Chronic ki dney disease due to type 2 diabetes mellitus 4361698152 08 E11.22 Benign ess ential hypertension 3428222 I10 Coronary arteriosclerosis 71976590 I25.10 Mixed hyperlipidemia 267 020741 E78.2 Acquired hypothyroidism 210257775 E03.9 Arthritis 0632940 M19.90 Gout 31737939 M10.9 Gastroesop hageal reflux disease without esophagitis 934187772 K21.9 Body mass index 30+ - obesity 849267818 Z68.33 Vitamin D deficiency 347 47498 E55.9 Senile osteoporosis 1804 0001 M81.0 Hyperglyce arpita due to type 2 diabetes mellitus 2587149093 19751 E11.65 Dupuytren' s contracture of finger 536899830 M72.0 [id number] Rebecca Pack [address] [place] [address] 03/02/2019 09:09:21 03/02/2019 10:19:13 Dupuytren's contracture of finger 111993703 M72.0 Chronic ki dney disease due to type 2 diabetes mellitus 6716484675 08 E11.22 Benign ess ential hypertension 7179776 I10 Coronary arteriosclerosis 49445492 I25.10 Mixed hyperlipidemia 267 718130 E78.2 Acquired hypothyroidism 957311783 E03.9 Arthritis 6858149 M19.90 Gout 30923413 M10.9 Gastroesop hageal reflux disease without esophagitis 406522009 K21.9 Body mass index 30+ - obesity 103399146 Z68.33 Vitamin D deficiency 347 23874 E55.9 Senile osteoporosis 1804 0001 M81.0 Hyperglyce arpita due to type 2 diabetes mellitus 1432912455 10960 E11.65 [id number] Rebecca Pack [address] [place] [address] 09/01/2019 10:47:47 09/01/2019 11:27:59 Dupuytren's contracture of finger 130162310 M72.0 Chronic ki dney disease due to type 2 diabetes mellitus 2882273364 08 E11.22 Benign ess ential hypertension 8698423 I10 Coronary arteriosclerosis 26252989 I25.10 Mixed hyperlipidemia 267 399969 E78.2 Acquired hypothyroidism 305219526 E03.9 Arthritis 0047134 M19.90 Gout 79747123 M10.9 Gastroesop hageal reflux disease without esophagitis 671917184 K21.9 Body mass index 30+ - obesity 830445654 Z68.33 Vitamin D deficiency 347 25154 E55.9 Senile osteoporosis 1804 0001 M81.0 Hyperglyce arpita due to type 2 diabetes mellitus 8620547742 48020 E11.65 [id number] Rebecca Pack [address] [place] [address] 12/03/2019 09:13:53 12/03/2019 10:19:45 Dupuytren's contracture of finger 720690727 M72.0 Chronic ki dney disease due to type 2 diabetes mellitus 5067962702 08 E11.22 Benign ess ential hypertension 6609674 I10 Coronary arteriosclerosis 37812403 I25.10 Mixed hyperlipidemia 267 919370 E78.2 Acquired hypothyroidism 977777067 E03.9 Arthritis 6980609 M19.90 Gout 45052353 M10.9 Gastroesop hageal reflux disease without esophagitis 537500340 K21.9 Body mass index 30+ - obesity 703125133 Z68.34 Vitamin D deficiency 347 74599 E55.9 Senile osteoporosis 1804 0001 M81.0 Hyperglyce arpita due to type 2 diabetes mellitus 3768536092 57687 E11.65 Administra tion of influenza vaccine 21369498 Z23 [id number] Rebecca Pack [address] [place] [address] 01/04/2020 10:19:03 01/04/2020 11:28:43 Dupuytren's contracture of finger 661135809 M72.0 Chronic ki dney disease due to type 2 diabetes mellitus 8611671273 08 E11.22 Benign ess ential hypertension 1501798 I10 Coronary arteriosclerosis 83289769 I25.10 Mixed hyperlipidemia 267 702481 E78.2 Acquired hypothyroidism 010893833 E03.9 Arthritis 1688949 M19.90 Gout 26521677 M10.9 Gastroesop hageal reflux disease without esophagitis 656911961 K21.9 Body mass index 30+ - obesity 410128463 Z68.34 Vitamin D deficiency 347 84533 E55.9 Senile osteoporosis 1804 0001 M81.0 Hyperglyce arpita due to type 2 diabetes mellitus 0143597483 40183 E11.65 Serum crea tinine above reference range 065806233 R79.89 Pain of to e of right foot 8489592048 90277 M79.211 [id number] Rebecca Pack [address] [place] [address] 03/10/2020 11:12:30 03/10/2020 12:19:28 Chronic kidney disease due to type 2 diabetes mellitus 9533922070 08 E11.22 Benign ess ential hypertension 2020703 I10 Coronary arteriosclerosis 44035121 I25.10 Mixed hyperlipidemia 267 517339 E78.2 Acquired hypothyroidism 394177555 E03.9 Arthritis 1665542 M19.90 Gout 28941928 M10.9 Gastroesop hageal reflux disease without esophagitis 811936732 K21.9 Body mass index 30+ - obesity 026085690 Z68.34 Vitamin D deficiency 347 32108 E55.9 Senile osteoporosis 1804 0001 M81.0 Hyperglyce arpita due to type 2 diabetes mellitus 6225222142 57699 E11.65 Nausea and vomiting 1693 2000 R11.2 Cough 17998932 R05 Dehydration 90933821 E86 .0 History of anemia vitamin B12 deficient 181260021 Z86.2 [id number] Rebecca Pack[address] [place] [address] 03/16/2020 08:26:13 03/16/2020 16:57:23 Hyperglycemia due to type 2 diabetes mellitus 1661687932 28956 E11.65 Chronic ki dney disease due to type 2 diabetes mellitus 3985532154 08 E11.22 Benign ess ential hypertension 0828710 I10 Coronary arteriosclerosis 42258250 I25.10 Mixed hyperlipidemia 267 211456 E78.2 Acquired hypothyroidism 645670141 E03.9 Arthritis 4676526 M19.90 Gout 51666050 M10.9 Gastroesop hageal reflux disease without esophagitis 050899944 K21.9 Body mass index 30+ - obesity 209258269 Z68.33 Vitamin D deficiency 347 07985 E55.9 Senile osteoporosis 1804 0001 M81.0 Hyperkalemia 63070801 E8 7.5 [id number] Rebecca Pack[address] [place] [address] 06/21/2020 08:16:58 06/21/2020 09:52:34 Hyperglycemia due to type 2 diabetes mellitus 7095228578 48845 E11.65 Chronic ki dney disease due to type 2 diabetes mellitus 7724663677 08 E11.22 Benign ess ential hypertension 6240483 I10 Coronary arteriosclerosis 44734024 I25.10 Mixed hyperlipidemia 267 023382 E78.2 Acquired hypothyroidism 563869924 E03.9 Arthritis 3048083 M19.90 Gout 38922589 M10.9 Gastroesop hageal reflux disease without esophagitis 711865233 K21.9 Body mass index 30+ - obesity 937728025 Z68.33 Vitamin D deficiency 347 67818 E55.9 Senile osteoporosis 1804 0001 M81.0 Renewal of prescription 119996520 Z76.0 Cloudy urine 6776738 R82 .90 [id number] Rebecca Pack [address] [place] [address] 09/29/2020 07:58:58 09/29/2020 09:28:21 Hyperglycemia due to type 2 diabetes mellitus 2282394148 37032 E11.65 Chronic ki dney disease due to type 2 diabetes mellitus 2915776450 08 E11.22 Benign ess ential hypertension 5997422 I10 Coronary arteriosclerosis 67449822 I25.10 Mixed hyperlipidemia 267 240888 E78.2 Acquired hypothyroidism 123153174 E03.9 Arthritis 6665746 M19.90 Gout 36206500 M10.9 Gastroesop hageal reflux disease without esophagitis 879461275 K21.9 Body mass index 30+ - obesity 425983750 Z68.34 Vitamin D deficiency 347 56730 E55.9 Senile osteoporosis 1804 0001 M81.0 Cobalamin deficiency 190 277430 E53.8 History of anemia 693743 002 Z86.2 Vertigo 457562941 R42 Lesion of face 873305625 L98.9 Chronic ki dney disease stage 3 297243929 N18.30 [id number] Arti Sanchez [address] [place] [address] 01/04/2021 08:01:09 01/04/2021 09:28:53 Neoplasm of skin 511760435 D49.2 return for 4 mm punch on left earreturn for 8 mm punch on right forehead ( impression , BCC) [id number] Rebecca Pack [address] [place] [address] 02/06/2021 09:54:04 02/06/2021 11:30:03 Hyperglycemia due to type 2 diabetes mellitus 2537628251 19109 E11.65 Chronic ki dney disease due to type 2 diabetes mellitus 3839282281 08 E11.22 Benign ess ential hypertension 6853229 I10 Coronary arteriosclerosis 97708123 I25.10 Mixed hyperlipidemia 267 954370 E78.2 Acquired hypothyroidism 527173612 E03.9 Arthritis 2608843 M19.90 Gout 85107389 M10.9 Gastroesop hageal reflux disease without esophagitis 655526073 K21.9 Body mass index 30+ - obesity 864422188 Z68.34 Vitamin D deficiency 347 26695 E55.9 Senile osteoporosis 1804 0001 M81.0 Cobalamin deficiency 190 283823 E53.8 Chronic ki dney disease stage 3 937688847 N18.30 Administra tion of influenza vaccine 80820094 Z23 [id number] Arti Sanchez [facility] [address] [place] [address] 04/18/2021 12:23:57 04/18/2021 13:35:36 Neoplasm of skin 777381411 D49.2 biopsy x2, referral for MOHs pending pathology [id number] Arti Sanchez [facility] [address] [place] [address] 04/25/2021 14:22:28 04/25/2021 15:42:11 Removal of suture 96444051 Z48.02 tolerated well Basal cell carcinoma of skin 124228897 C44.91 discussed pathology with patient and plan of care 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 [address] 08/22/2021 15:28:54 08/22/2021 16:29:42 Hyperglycemia due to type 2 diabetes mellitus 8112252066 48540 E11.65 Chronic ki dney disease due to type 2 diabetes mellitus 5997864261 08 E11.22 Benign ess ential hypertension 4180554 I10 Coronary arteriosclerosis 81103302 I25.10 Mixed hyperlipidemia 267 665778 E78.2 Acquired hypothyroidism 708034831 E03.9 Arthritis 2702247 M19.90 Gout 26259015 M10.9 Gastroesop hageal reflux disease without esophagitis 539754003 K21.9 Body mass index 30+ - obesity 168484233 Z68.34 Vitamin D deficiency 347 91539 E55.9 Senile osteoporosis 1804 0001 M81.0 Cobalamin deficiency 190 864286 E53.8 Chronic ki dney disease stage 3 498108279 N18.30 [id number] Farhad Pleitez MD [address] [place] [address] 10/06/2021 13:44:55 10/06/2021 14:08:57 Hyperlipidemia 66455141 E78.5 [id number] Rebecca Pack [address] [place] [address] 11/27/2021 11:59:16 11/27/2021 13:35:33 Hyperglycemia due to type 2 diabetes mellitus 7548681661 67945 E11.65 Chronic ki dney disease due to type 2 diabetes mellitus 7880443255 08 E11.22 Benign ess ential hypertension 4413642 I10 Coronary arteriosclerosis 81673986 I25.10 Mixed hyperlipidemia 267 763398 E78.2 Acquired hypothyroidism 350357149 E03.9 Arthritis 0571267 M19.90 Gout 36599420 M10.9 Gastroesop hageal reflux disease without esophagitis 942036570 K21.9 Body mass index 30+ - obesity 072807080 Z68.34 Vitamin D deficiency 347 52456 E55.9 Senile osteoporosis 1804 0001 M81.0 Cobalamin deficiency 190 767412 E53.8 Chronic ki dney disease stage 3 848123922 N18.30 [id number] Rebecca Pack APRN [address] [place] [address] 03/06/2022 09:57:37 03/06/2022 10:57:09 Hyperglycemia due to type 2 diabetes mellitus 0171111100 15152 E11.65 Chronic ki dney disease due to type 2 diabetes mellitus 7630814381 08 E11.22 Benign ess ential hypertension 1416903 I10 Coronary arteriosclerosis 43418371 I25.10 Mixed hyperlipidemia 267 091294 E78.2 Acquired hypothyroidism 027231259 E03.9 Arthritis 3417575 M19.90 Gout 03298287 M10.9 Gastroesop hageal reflux disease without esophagitis 731797431 K21.9 Body mass index 30+ - obesity 156714118 Z68.33 Vitamin D deficiency 347 17094 E55.9 Senile osteoporosis 1804 0001 M81.0 Cobalamin deficiency 190 084633 E53.8 Chronic ki dney disease stage 3 603776007 N18.30 Chronic diarrhea 8686453 09 K52.9 [id number] Rebecca Pack[address] [place] [address] 06/14/2022 10:50:32 06/14/2022 11:56:27 Chronic diarrhea 846587252 K52.9 Hyperglyce arpita due to type 2 diabetes mellitus 3282172185 14714 E11.65 Chronic ki dney disease due to type 2 diabetes mellitus 0165644290 08 E11.22 Benign ess ential hypertension 4981850 I10 Coronary arteriosclerosis 05217504 I25.10 Mixed hyperlipidemia 267 714465 E78.2 Acquired hypothyroidism 916500584 E03.9 Arthritis 9419054 M19.90 Gout 38981752 M10.9 Gastroesop hageal reflux disease without esophagitis 564478468 K21.9 Body mass index 30+ - obesity 562001761 Z68.31 Vitamin D deficiency 347 68010 E55.9 Senile osteoporosis 1804 0001 M81.0 Cobalamin deficiency 190 609189 E53.8 Chronic ki dney disease stage 3 117204478 N18.30 Type 2 evonne betes mellitus 18788736 E11.9 [id number] Rebecca Pack[address] [place] [address] 09/12/2022 12:46:02 09/12/2022 13:22:14 Hyperglycemia due to type 2 diabetes mellitus 4470449127 30907 E11.65 Chronic ki dney disease due to type 2 diabetes mellitus 7710268366 08 E11.22 Benign ess ential hypertension 1372155 I10 Coronary arteriosclerosis 19533002 I25.10 Mixed hyperlipidemia 267 076600 E78.2 Acquired hypothyroidism 413282725 E03.9 Arthritis 1247790 M19.90 Gout 11026080 M10.9 Gastroesop hageal reflux disease without esophagitis 437989467 K21.9 Body mass index 30+ - obesity 164462563 Z68.31 Vitamin D deficiency 347 85752 E55.9 Senile osteoporosis 1804 0001 M81.0 Cobalamin deficiency 190 994764 E53.8 Chronic ki dney disease stage 3 455382445 N18.30 Renewal of prescription 580218938 Z76.0 Diarrhea 62027509 R19.7 Hypothyroidism 43018223 E03.9 Dizziness and giddiness 325091840 R42 [id number] Rebecca Pack [address] [place] [address] 12/25/2022 08:22:42 12/25/2022 09:32:43 Influenza vaccine needed 2450456148 106 Z23 Administra tion of viral vaccine 85203362 Z23 Hyperglyce arpita due to type 2 diabetes mellitus 3531097018 65198 E11.65 Chronic ki dney disease due to type 2 diabetes mellitus 4451014835 08 E11.22 Benign ess ential hypertension 3435985 I10 Coronary arteriosclerosis 84008992 I25.10 Acquired hypothyroidism 542205259 E03.9 Arthritis 7375567 M19.90 Gout 92071084 M10.9 Gastroesop hageal reflux disease without esophagitis 059940424 K21.9 Body mass index 30+ - obesity 830173708 Z68.32 Vitamin D deficiency 347 87433 E55.9 Senile osteoporosis 1804 0001 M81.0 Cobalamin deficiency 190 559791 E53.8 Chronic ki dney disease stage 3 319715962 N18.30 Renewal of prescription 520830170 Z76.0 Hyperlipidemia 65322266 E78.5 Laceration of skin 65602 5007 T14.8XXA [id number] Rebecca Pack [address] [place] [address] 04/18/2023 14:19:55 04/18/2023 15:12:26 Chronic kidney disease due to type 2 diabetes mellitus 5397506599 08 E11.22 Benign ess ential hypertension 7836277 I10 Hyperglyce arpita due to type 2 diabetes mellitus 4814575619 31110 E11.65 Coronary arteriosclerosis 85957214 I25.10 Acquired hypothyroidism 076508292 E03.9 Arthritis 5940317 M19.90 Gout 35581841 M10.9 Gastroesop hageal reflux disease without esophagitis 995454869 K21.9 Body mass index 30+ - obesity 125374936 Z68.32 Vitamin D deficiency 347 64550 E55.9 Senile osteoporosis 1804 0001 M81.0 Cobalamin deficiency 190 346435 E53.8 Chronic ki dney disease stage 3 793194286 N18.30 Hyperlipidemia 95706535 E78.5 Acute sinusitis 15445145 J01.90 [id number] Rebecca Pack [address] [place] [address] 07/18/2023 09:16:06 07/18/2023 10:18:58 Hyperglycemia due to type 2 diabetes mellitus 8497409851 31490 E11.65 Chronic ki dney disease due to type 2 diabetes mellitus 3313032030 08 E11.22 Benign ess ential hypertension 8019527 I10 Coronary arteriosclerosis 80937036 I25.10 Acquired hypothyroidism 397478074 E03.9 Arthritis 2749570 M19.90 Gout 05484915 M10.9 Gastroesop hageal reflux disease without esophagitis 016369835 K21.9 Body mass index 30+ - obesity 641585537 Z68.31 Vitamin D deficiency 347 85725 E55.9 Senile osteoporosis 1804 0001 M81.0 Cobalamin deficiency 190 196887 E53.8 Chronic ki dney disease stage 3 554440531 N18.30 Hyperlipidemia 44400217 E78.5 Nausea 263747030 R11.0 History of anemia 899596 002 Z86.2 Cramp in lower limb 4499 18103 R25.2 Dizziness 871674649 R42 [id number] Rebecca Pack [address] [place] [address] 10/21/2023 10:27:53 10/21/2023 11:24:39 Hyperglycemia due to type 2 diabetes mellitus 3840433060 45510 E11.65 Chronic ki dney disease due to type 2 diabetes mellitus 6713677382 08 E11.22 Benign ess ential hypertension 2664241 I10 Coronary arteriosclerosis 81003847 I25.10 Acquired hypothyroidism 694677356 E03.9 Arthritis 5432007 M19.90 Gout 43777468 M10.9 Gastroesop hageal reflux disease without esophagitis 929493838 K21.9 Body mass index 30+ - obesity 701616935 Z68.30 Vitamin D deficiency 347 63247 E55.9 Senile osteoporosis 1804 0001 M81.0 Cobalamin deficiency 190 363356 E53.8 Chronic ki dney disease stage 3 638008139 N18.30 Hyperlipidemia 05351412 E78.5 Renewal of prescription 546968433 Z76.0 Health Concerns Section Related Observation LastModified by Organization Detai ls LastModified Time None Recorded Concern Status LastModified by Organization Details LastModified Time None Recorded Advance Directives Directive Y: Payers Insurance Date Sequence Insurance Name Policy Number Policy Mayo Covered Member ID Mayo Member ID Guarantor Name 03/09/2024 1 [employer] (MEDICARE REPLACEMENT/A DVANTAGE - PPO) Jenifer Verdemons [id number] Jenifer Verdemons 10/21/2023 1 [employer] (PPO) [id number] Jenifer Ravi Gilliam [id number] Jenifer Ravi Gilliam Notes Date Note Type Note Provider Name and Address Organization Details Recorded Time 09/12/2022 text/html Jenifer presents for 3 month follow up on her diabetes. She is currently on Toujeo 8 to 16 units QHS (often forgets to take it) and Novolog ac per sliding scale (max 18 units). Her last hgb a1c was 7.9%. Today it is 7.6%. She is wearing [employer] Pancho CGM and in reviewing download, her 14 day glucose average is 160 with less than 1% lows. Diabetic eye exam from 05/07/2022 was negative for retinopathy. For hypothyroidism, she is currently on Levothyroxine 75 mcg daily. She denies any symptoms of over replacement. Thyroid labs from last visit were in good balance. For gout, she is on allopurinol 200 mg daily. She cannot tolerate statins. Dr. Trevino has her on Repatha and I gave her a sample injection of Leqvio with no improvement in lipids. 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 She has 3 stents. Her PCP is Mendez Lau at the [facility]. Pt stated you are her PCP She recently lost her . Refuses mammogram and dexa. Chronic issues reviewed and stable. Rebecca Pack, [facility] [address] [place], [address], [place] - [facility] 09/12/2022 13:24:04 12/25/2022 text/html Jenifer presents for 3 month follow up on her diabetes. She is currently on Toujeo 16 units QHS (often forgets to take it) and Novolog ac per sliding scale (max 12 units at one time) Her last hgb a1c was 7.6%. Today it is 7.3%. She is wearing [employer] Pancho CGM and in reviewing download, her 14 day glucose average is 170 with no hypoglycemia. Diabetic eye exam from 05/07/2022 was negative for retinopathy. For hypothyroidism, she is currently on Levothyroxine 75 mcg daily. She denies any symptoms of over replacement. For gout, she is on allopurinol 200 mg daily. She cannot tolerate statins. Dr. Trevino has her on Repatha and I gave her a sample injection of Leqvio with no improvement in lipids. 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 Trevino. She has 3 stents. I am her PCP. She cut herself yesterday between her left 4th and 5th fingers on the edge of a plastic trash can. She is a . Refuses mammogram and dexa. Chronic issues reviewed and stable. Rebecca Pack, [facility] [address], [place], [address], [email or web address] - [facility] 12/25/2022 09:35:24 04/18/2023 text/html Jenifer presents for 3 month follow up on her diabetes. She is currently on Toujeo 16 units QHS (often forgets to take it) and Novolog ac per sliding scale 10 to 14 units before breakfast, and 16 units before lunch and supper. Her last hgb a1c was 7.3%. Today it is 8.2% She is wearing [employer]estyle Pancho CGM and in reviewing download, her 14 day glucose average is 189 with no hypoglycemia. Diabetic eye exam from 05/07/2022 was negative for retinopathy. She is scheduled for cataract removal in July. For hypothyroidism, she is currently on Levothyroxine 75 mcg daily. She denies any symptoms of over replacement. Thyroid labs from last visit were in good balance. For gout, she is on allopurinol 200 mg daily. She cannot tolerate statins. Dr. Trevino has her on Repatha and I gave her a sample injection of Leqvio with no improvement in lipids. 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 Trevino. She has 3 stents. I am her PCP. She is a . Refuses mammogram and dexa. Chronic issues reviewed and stable. Rebecca Pack, [facility] [address], [place], [address], [place] - [facility] 04/18/2023 15:15:36 07/18/2023 text/html Jenifer presents for 3 month follow up on her diabetes. She is currently on Toujeo 16 units QHS (often forgets to take it) and Novolog ac per sliding scale 10 to 14 units before breakfast, and 16 units before lunch and supper. Her last hgb a1c was 8.2%. Today it is 8.0% She is wearing [employer] CGM and in reviewing download, her 14 day glucose average is 190 with no hypoglycemia. Diabetic eye exam from 05/07/2022 was negative for retinopathy. She is scheduled for exam next month. For hypothyroidism, she is currently on Levothyroxine 75 mcg daily. She denies any symptoms of over replacement. For gout, she is on allopurinol 200 mg daily. She cannot tolerate statins. Dr. Trevino has her on Repatha and I gave her a sample injection of Leqvio with no improvement in lipids. 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 Trevino. She has 3 stents. She is having echo tomorrow. She is c/o dizziness upon standing, some nausea in the mornings, and cramps in her legs and feet. I am her PCP. She is a . Refuses mammogram and dexa. Chronic issues reviewed and stable. Rebecca Pack, [facility] [address], [place], [address], [place] - [facility] 07/18/2023 10:15:11 10/21/2023 text/html Jenifer presents for 3 month follow up on her diabetes. She is currently on Toujeo 16 units QHS (often forgets to take it) and Novolog ac per sliding scale 10 to 14 units before breakfast, and 16 units before lunch and supper. Her last hgb a1c was 8.0%. Today it is 8.1%. Urine MALB today is normal. She is wearing [employer] CGM and in reviewing download, her 14 day glucose average is 191 with no hypoglycemia. Diabetic eye exam from 10/17/2023 was negative for retinopathy. For hypothyroidism, she is currently on Levothyroxine 75 mcg daily. She denies any symptoms of over replacement. For gout, she is on allopurinol 200 mg daily. She cannot tolerate statins. She is on Repatha. 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 Trevino. She has 3 stents. She is having echo tomorrow. She has an order for labs from neurologist at [facility] to have drawn today. I am her PCP. She is a . Refuses mammogram and dexa. Chronic issues reviewed and stable. Rebecca Pack, [facility] [address], [place], [address], [place] - [facility] 10/21/2023 11:13:43 OBGyn Episode No OBEpisode recorded.
--- OUTSIDE RECORDS SUMMARY | 2024-08-14 11:00 | XMS_ITS | Encounter Summary ---
Author Organization Healthcare Address [address] [place] [address] Care Team Providers Care Civil Cadd Technician Name Role Phone Pcp, No Primary Care Provider Anika Baugh LPN Unavailable Unavailable Encounter Details Date Type Department Care Team (Late st Contact Info) Description 12/25/2021 Ophth Exam [facility] [address] [place] [address] Willie Tineo MD [address] [place] [address] Social History Tobacco Use Types Packs/Day Years Used Date Smoking Tobacco: Never Smokeless Tobacco: Never Alcohol Use Standard Drinks/Week Comments No 0 (1 standard drink = 0.6 oz pur e alcohol) Comments No Sex and Gender Information Value Date Recorded Sex Assigned at Female 01/01/2022 11:20 AM EST Legal Sex Female 7:30 PM EDT Gender Identity Female 01/01/2022 11:20 AM EST Sexual Orientation Not on file COVID-19 Exposure Response Date Recorded In the last 10 days, have yo u been in contact with someone who was confirmed or suspected to have Coronavirus/COVID-19? No / Unsure 12/25/2021 12:51 AM EDT documented as of this encounter Functional Status * Calculated C-SSRS Risk Score (Lifetime/Recent) Answer Date of Assessment Author No Risk Indicated 12/25/2021 5:00 AM EDT Swapna Dan * Question Answer Date of Assessment Author 1. Wish to be (Past 1 Month) No 022 5:00 AM EDT Swapna Dan 2. Non-Specific Active Suici ezra Thoughts (Past 1 Month) No 12/25/2021 5:00 AM EDT Swapna Dan 6. Suicidal Behavior (Lifetime) No 5:00 AM EDT Swapna Dan documented as of this encounter Plan of Treatment Upcoming Encounters Date Type Department Care Team (Late st Contact Info) Description 11/12/2024 10:30 AM EDT Office Visit [facility] [address] [place] [address] Sade Salinas MD [address] [facility] [address] [place] [address] documented as of this encounter Visit Diagnoses Not on filedocumented in this encounter Additional Health Concerns Infection Onset Date Last Indicated Resolved Time Respiratory Rule-Out 05/29/2024 05/29/2024 025 6:07 PM EDT Human Metapneumovirus 05/29/2024 05/29/2024 documented as of this encounter Care Teams Civil Cadd Technician Relationship Specialty Start Date End Date Pcp, No [address] [place] [address] PCP - General Family Medicine 07/19/21 Anika Watson LPN [employer] [place] [address] TCM Nurse 12/27/21 01/25/22 documented as of this encounter
--- OUTSIDE RECORDS SUMMARY | 2024-08-14 11:00 | XMS_ITS | Referral Summary ---
Author Organization [employer] Address [address] [place] [address] Care Team Providers Care B2B Outside Sales Representative Name Role Phone Rebecca Pack Ty Primary Care Provider [phone] Allergies Active Allergy Reactions Criticality Noted Date Comments Amoxicillin Nausea Only,Other (See Comments) Low 08/25/2012 Insulin Detemir Nausea Only Low 07/19/2021 Iodine Other (See Comments) Low 08/25/2012 Other reaction(s): Other - please document in the comment field Iodine in foods, states daughter. Ondansetron Low 11/01/2021 Other reaction(s): Other - please document in the comment field Does not work for pt Shellfish Containing Products Other (See Comments) Low 12/25/2021 vomiting Bsyrchr-Enw-Mhd Reductase Inhibitors Medium 01/17/2022 Other reaction(s): myalgias Medications b complex vitamins capsule TAKE (1) TABLET BY MOUTH TWICE A DAY. 07/23/2023 Active aspirin 81 MG chewable tablet CHEW ONE (1) TABLET EVERY DAY BY ORAL ROUTE FOR 90 DAYS. 04/22/2023 Active carvediloL (COREG) 6.25 MG tablet Take 1 tablet (6.25 mg total) by mouth 2 (two) times daily. 07/23/2023 Active cholecalciferol (VITAMIN D3) 25 mcg (1,000 unit) tablet Take 2 tablets (2,000 Units total) by mouth daily. 07/23/2023 Active clopidogreL (PLAVIX) 75 mg tablet Take 1 tablet (75 mg total) by mouth daily. 07/23/2023 Active Repatha SureClick 140 mg/mL pen injector SMARTSI Milligram(s) SUB-Q Every 2 Weeks 09/18/2023 Active fenofibrate (TRICOR) 145 MG tablet Take 1 tablet (145 mg total) by mouth daily. 07/23/2023 Active fluticasone propionate (FLONASE) 50 mcg/actuation nasal spray 1 spray by Each Nare route daily. 05/30/2023 Active furosemide (LASIX) 20 MG tablet Take 1 tablet (20 mg total) by mouth 2 (two) times daily. 07/23/2023 Active Toujeo Max U-300 SoloStar 300 unit/mL (3 mL) syringe Inject subcutaneous ly. 08/27/2023 Active levothyroxine (SYNTHROID, LEVOTHROID) 75 MCG tablet Take 1 tablet (75 mcg total) by mouth daily. 07/23/2023 Active pantoprazole (PROTONIX) 40 MG tablet TAKE ONE (1) TABLET EVERY DAY BY ORAL ROUTE FOR 90 DAYS. 04/22/2023 Active meclizine (ANTIVERT) 25 MG tablet Take 1 tablet (25 mg total) by mouth 3 (three) times daily as needed. 07/23/2023 Active spironolactone (ALDACTONE) 25 MG tablet Take 1 tablet (25 mg total) by mouth daily. 09/23/2023 Active Active Problems No known active problems Social History Tobacco Use Types Packs/Day Years Used Date Smoking Tobacco: Never Smokeless Tobacco: Never Tobacco Cessation:Counseling Given: Not Answered Interpersonal Safety Answer Date Record ed Family or friends hurt you Not on file 08/01 Family or friends insult you Not on file 08/2023 Family or friends threaten you Not on file 0 08/02/2023 Family or friends scream or curse at you Not on file 08/02/2023 Food Insecurity Answer Date Recorded Food run out past 12 months Not on file 08/2023 Food did not last past 12 months Not on file 08/02/2023 Employment Answer Date Recorded Help finding and keeping a job Not on file 0 08/02/2023 Family and Community Support Answer Kavon e Recorded Help with Day to Day Activities Not on file 08/02/2023 Feeling Lonely or Isolated Not on file 08/01 Educational Attainment Answer Date Javed rded Speak language other than Moldovan at home Not on file 08/02/2023 Want help with school or training Not on file 08/02/2023 Depression Answer Date Recorded PHQ-2 Risk Not on file 08/02/2023 Disabilities Answer Date Recorded Difficulty concentrating Not on file 024 Difficulty doing errands alone Not on file 0 08/02/2023 Substance Use Answer Date Recorded Used prescription meds for non-medical reasons N ot on file 08/02/2023 Used illegal drugs past 12 months Not on file 08/02/2023 Comments Unknown Sex and Gender Information Value Date Recorded Sex Assigned at Not on file Legal Sex Female 12:35 PM CDT Gender Identity Not on file Sexual Orientation Not on file Last Filed Vital Signs Vital Sign Reading Time Taken Comments Blood Pressure 127/68 10/08/2023 11:03 AM EDT Pulse 68 10/08/2023 11:03 AM EDT Temperature - - Respiratory Rate - - Oxygen Saturation - - Inhaled Oxygen Concentration - - Weight 82.1 kg (181 lb) 10/08/2023 11:03 AM EDT Height 152.4 cm (5') 10/08/2023 11:03 AM EDT Body Mass Index 35.35 10/08/2023 11:03 AM EDT Plan of Treatment Not on file Insurance [employer] MEDIC[employer] PPO Care Teams B2B Outside Sales Representative Relationship Specialty Start Date End Date Rebecca Pack [address] [place] [address] [facility] - General 08/13/23
--- OUTSIDE RECORDS SUMMARY | 2024-08-14 11:00 | XMS_ITS | Clinical Summary ---
Author Organization [employer] Address [address] [place] [address] Care Team Providers Care Property Site Manager Name Role Phone Rebecca Pack Ty Primary Care Provider [phone] Allergies Active Allergy Reactions Criticality Noted Date [...] Products Other (See Comments) Low 12/25/2021 vomiting Fwaaxrt-Vax-Wzm Reductase Inhibitors Medium 01/17/2022 Other reaction(s): myalgias [...] Active Active Problems No known active problems Family History Medical History Relation Name Comments Diabetes Father Relation Name Status Comments Father Social History Tobacco Use Types Packs/Day Years [...] Date Javed rded Speak language other than Belarusian at home Not on file 08/02/2023 Want [...] 10/08/2023 11:03 AM EDT Plan of Treatment Health Maintenance Due Date Last Done Comments DXA SCAN 1939 Depression Screening (12+) 1951 DTAP/TDAP/TD VACCINES (1 - Tdap) 1958 Shingles Vaccine (Zoster) (1 of 2) 1989 Respiratory Syncytial Virus (RSV) Adult or (1 - 1-dose 75+ series) 2014 Pneumococcal 50+ years (2 of 2 - PCV) 12/09/2018 12/09/2017 Medicare Initial AWV [id number] 02/26/2019 COVID-19 VACCINE (2023-2 5 season) 2023 12/25/2022, 01/10/2022, 10/17/2021, Additional history exists Falls Risk Screening 02/26/2024 Tobacco Cessation Counseling and Screening (12+) 10/07/2024 10/08/2023 Influenza Vaccine (Season Ended) 2024 12/25/2022, 01/10/2022, 02/06/2021, Additional history exists Insurance [employer] MEDICARE PPO Care Teams Property Site Manager Relationship Specialty Start Date End Date Rebecca Pack [address] [place] [address] PCP - General 08/13/23
--- NOTE | 2024-08-14 11:15 | CA_ITS ---
APPROVED REPORT EXAM: Comprehensive 2D, Doppler, and color-flow Echocardiogram Student Support Counselor: Porsche Lopez RT(R) Ht: 5 ft 4 in Wt: 171lbs BSA: 1.83 BP: 148/77 mmHg Indications: dyspnea, nonrheumatic aortic stenosis, HFpEF, cryptogenic stroke history, TAVR 2D Dimensions EF AP4 40.10 % GL Strain -12.1 % M-Mode Dimensions RVDd 2.69 cm (0.9-2.6) LA Diam 4.88 cm (1.9-4.0) LVDd 3.11 cm (3.5-5.7) LVDs 2.32 cm (3.5-5.7) IVSd 0.99 cm (0.6-1.1) PWd 0.76 cm (0.6-1.1) EF (Teich) 51.60% FS 25.40% EDV (Teich) 38.20 mL ESV (Teich) 18.50 mL LV Diastology E Decel Time 250 (160-240 msec) E/A Ratio 0.6 Aortic Valve FAHAD Index 0.74 cm2/m2 AoV Peak Winston. 177.0 (50-130 cm/s) AO Peak GR. 12.70 mmHg AO Mean GR. 6.20 (<5 mmHg) AO VTI 35.4 (18-25 cm) FAHAD (VTI) 1.39 (2.5-4.5 cm2) Mitral Valve MV E Max Winston. 88.0 (40-130 cm/s) MV A Velocity 145.0 (40-130 cm/s) E/A Ratio 0.61 MV PHT 73.0 ms Left Ventricle The left ventricle is normal size. The left ventricular systolic function is normal. The left ventricular ejection fraction is within the normal range. There is increased LV wall thickness. Proximal septal thickening is present. There is normal LV segmental wall motion. Transmitral Doppler flow pattern suggests impaired LV relaxation. LVEF is 60%. Right Ventricle The right ventricle is not very well-visualized, but grossly appears at least mildly dilated with normal RV function. Atria The left atrium severely dilated. The right atrium is normal in size. There is no Doppler evidence of interatrial shunt. Aortic Valve s/p TAVR. The prosthesis is well-seated. Peak velocity 1.8 m/s. Mean AV gradient 8 mmHg. Max AV gradient 14 mmHg. Mild paravalvular AI. No central AI. Mitral Valve Moderate mitral annular calcification. The mitral valve leaflets are thickened. No evidence of mitral valve stenosis. Mean MV gradient 4 mmHg (HR 73 bpm). Mild mitral regurgitation. Tricuspid Valve Tricuspid valve is grossly normal in structure and function. Trace tricuspid regurgitation. There is insufficient TR jet to estimate RVSP. Pulmonic Valve The pulmonary valve is normal in structure. Trace pulmonic regurgitation. Great Vessels The aortic root is normal in size. IVC is normal in size and collapses >50% with inspiration. Pericardium There is no pericardial effusion. Other Information Study Quality: Fair Conclusion Normal biventricular systolic function. Mild RV dilation. LA dilation. s/p TAVR. Acceptable transaortic gradients. Mild paravalvular AI. Moderate MAC. Mild MR. Electronically signed by : Ara Kelley MD 08/18/2024 11:18:18
== END 2024-08-14 23:59 | disposition home or self-care (01) ==
LOC: RT 10:56
PROVIDERS: PCP Nurse Practitioner Family; Visit Provider Physician Assistant
DX: I34.81 Nonrheumatic mitral (valve) annulus calcification (principal); I34.0 Nonrheumatic mitral (valve) insufficiency; I50.33 Acute on chronic diastolic (congestive) heart failure; T82.03XA Leakage of heart valve prosthesis, initial encounter; I65.23 Occlusion and stenosis of bilateral carotid arteries; Z95.2 Presence of prosthetic heart valve
CPT/HCPCS: 93306

== ENCOUNTER 2024-10-28 11:00 | Outpatient (CLI) | payer MEDICARE, SELFPAY ==
--- OUTSIDE RECORDS SUMMARY | 2024-09-01 15:00 | XMS_ITS | Encounter Summary ---
Author Organization Healthcare Address [address] [place] [address] Care Team Providers Care Turbo Electric Operator Name Role Phone Pcp, No Primary Care Provider Unavailabl e Encounter Details Date Type Department Care Team (Late st Contact Info) Description 09/01/2024 3:00 PM EDT Office Visit Ear, Nose & Throat, Head & Neck Surgery [address] [place] [address] Arnulfo Pennington MD [address] [place] [address] Mucocele of lip (Primary Dx) Social History Tobacco Use Types Packs/Day Years Used Date Smoking Tobacco: Never Passive Smoke Exposure: Never Smokeless Tobacco: Never Tobacco Cessation:Counseling Given: Not Answered Alcohol Use Standard Drinks/Week Comments No 0 [...] drink first t elba in the morning (EYE-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 0 05/29/2024 CAGE Questionnaire Score 0 025 Comments No Sex and Gender Information Value Date Recorded Sex Assigned at Female 01/01/2022 11:20 AM EST Legal Sex Female 7:30 PM EDT Gender Identity Female 01/01/2022 11:20 AM EST Sexual Orientation Not on file documented as of this encounter Last Filed Vital Signs Vital Sign Reading Time Taken Comments Blood Pressure 131/68 09/01/2024 3:37 PM EDT Pulse 65 09/01/2024 3:37 PM EDT Temperature - - Respiratory Rate - - Oxygen Saturation - - Inhaled Oxygen Concentration - - Weight 77.1 kg (170 lb) 09/01/2024 3:37 PM EDT Height 157.5 cm (5' 2 ) 09/01/2024 3:37 PM EDT Body Mass Index 31.09 09/01/2024 3:37 PM EDT documented in this encounter Miscellaneous Notes * Progress Notes - Arnulfo Pennington MD - 09/01/2024 3:00 PM EDT 07/19/21:Jenifer Gilliam is a very pleasant 81 y.o. year old female here for evaluation for left ear BCC and reconstruction as well as right forehead SCC. She was undergoing Mohs for left lobule BCC but was unable to tolerate completion of the procedure as the local was no longer working. Referred here for management under anesthesia and to excise forehead lesion. She is having some itching in the area. 07/31/21: Here for postop s/p 07/25/21 excision right forehead mass (SCC) with primary closure, and reexcision left auricle mass (BCC) with adjacent tissue transfer. Both areas had positive margins on frozen (SCC - AK or CIS, BCC - invasive BCC). Final pathology not available today. Doing well postop.Some numbness of the right scalp, oozing of the left ear. 08/09/21: Here for follow up. Doing well. 11/01/21: Here for follow up. Doing well. NO drainage of the left ear, feels people don't notice the asymmetry. Some postauricular pain. Some numbness of right forehead, asymmetry improving. Had areas frozen at derm (Dr. Guerrero), one cheek area has been bothering her, others doing well. 09/01/24: Referred back due to concerns of tongue lesion and right lower lip lesion. Tongue lesion has resolved - present since 06/2024. Lower lip thought to be mucocele in primary care. Here for further evaluation. Had a fall 05/2024 and large laceration of her forehead treated in [place]. Bothered by bump on her head but being observed by primary care. Past medical history CAD s/p PCI, DM, CKD, aortic valve stenosis s/p TAVR on asa/plavix Family history has been reviewed and is noncontributory. Social history reviewed. Never smoker Tobacco Use: Low Risk (09/01/2024) Patient History Smoking Tobacco Use: Never Smokeless Tobacco Use: Never Passive Exposure: Never 14 point review of systems is negative except as noted in the HPI. Body mass index is 31.09 kg/m??. General: patient is awake, well appearing, and in no acute distress. Face: Right forehead with raised brow, incision intact, more symmetric than previously. Right cheekwith small ulcerated nodule. New well healed large superior horizontal laceration scar, inferior bump, firm Skin: No overtly ulcerated, cellulitic, or indurated lesions of the head or neck. Ears: Right auricle well formed. Left ear s/p partial auriculectomy reconstruction intact except with fistula to posterior side, no drainage, skin graft healed. Eyes: Extraocular muscles are intact. The sclera and conjunctiva are normal. No ptosis is appreciated. Nose: The nasal dorsum is without scar or deformity. No mucopurulence or polyps are appreciated on anterior rhinoscopy. The nasal airways are patent bilaterally. The septum is midline. Oral cavity: No mucosal masses or lesions are appreciated. Floor of mouth is normal and the tongue has full range of motion. There is appropriate incisor opening without trismus. Right lower lip withsmall submucosal somewhat firm diffuse mass, consistent with resolving mucocele Oropharynx: No mucosal masses or lesions are appreciated. The palate elevates symmetrically withoutdraping. The uvula is midline. Neck: The neck is soft and supple. No crepitus, masses, or lymphadenopathy are appreciated. The trachea is in midline. Neurological: Cranial nerves II-, VIII-XII are grossly intact. Facial nerve has a House-Brackman grade 1 of 6 bilaterally. There is no evidence of nystagmus or gross asymmetry on exam. Gait normal Psychiatric: Alert and oriented ??3. Mood and affect are otherwise appropriate. Chest: Breathing is nonlabored without use of accessory muscles. There is symmetric chest wall expansion. Cardiovascular: extremities warm, well perfused, and noncyanotic with good capillary refill Outside records reviewed: Right forehead invasive SCC Left ear BCC - partially resected, superior margin still positive Final Diagnosis (no units) Date/Time Value 07/25/2021 1418 A. LEFT EAR BEVERLY, SKIN, SUPPLEMENTAL SUPERIOR MARGIN, FROZEN SECTION CONSULTATION: - BASAL CELL CARCINOMA - BACKGROUND SHOWS ACTINIC KERATOSIS B. RIGHT FOREHEAD LESION, SKIN, DEEP MARGIN, FROZEN SECTION CONSULTATION: - SCANT FIBROUS TISSUE, NEGATIVE FOR MALIGNANCY C. RIGHT FOREHEAD LESION, SKIN, MEDIAL MARGIN, FROZEN SECTION CONSULTATION: - ACTINIC KERATOSIS - NEGATIVE FOR CARCINOMA D. RIGHT FOREHEAD LESION, SKIN, SUPERIOR MARGIN, FROZEN SECTION CONSULTATION: - ACTINIC KERATOSIS - NEGATIVE FOR CARCINOMA E. RIGHT FOREHEAD LESION, SKIN, LATERAL MARGIN, FROZEN SECTION CONSULTATION: - ACTINIC KERATOSIS - NEGATIVE FOR CARCINOMA F. RIGHT FOREHEAD LESION, SKIN, INFERIOR MARGIN, FROZEN SECTION CONSULTATION: - ACTINIC KERATOSIS - NEGATIVE FOR CARCINOMA G. LEFT EAR BEVERLY, SKIN, SUPERIOR MARGIN, RE-EXCISION: - SMALL FOCUS OF BASAL CELL CARCINOMA AND OVERLYING REACTIVE SQUAMOUS EPITHELIUM H. RIGHT FOREHEAD LESION, SKIN, EXCISION: - INVASIVE SQUAMOUS CELL CARCINOMA, COMPLETELY EXCISED I. RIGHT FOREHEAD LESION, SUPPLEMENTAL NEW MEDIAL MARGIN, EXCISION: - NEGATIVE FOR CARCINOMA - BACKGROUND SHOWS ACTINIC KERATOSIS J. RIGHT FOREHEAD LESION, SUPPLEMENTAL NEW LATERAL MARGIN, EXCISION: - NEGATIVE FOR CARCINOMA - BACKGROUND SHOWS ACTINIC KERATOSIS K. RIGHT FOREHEAD LESION, SUPPLEMENTAL NEW SUPERIOR MARGIN, EXCISION: - NEGATIVE FOR CARCINOMA L. LEFT EAR, NEW SUPERIOR MARGIN, EXCISION: - NEGATIVE FOR CARCINOMA - BACKGROUND SHOWS ACTINIC KERATOSIS Comment (no units) Date/Time Value 07/25/2021 1418 This report reflects the expert opinion of Dr. Chao Cortes. Dr. Cortes's entire consultation report ([id number]) can be viewed as a scanned document in [facility]. Intraoperative Consultation (no units) Date/Time Value 07/25/2021 1418 A. LEFT EAR BEVERLY, SUPPLEMENTAL SUPERIOR MARGIN FSA1 POSITIVE FOR CARCINOMA John Witt MD B. RIGHT FOREHEAD LESION, DEEP MARGIN FSB1 NEGATIVE FOR MALIGNANCY John Witt MD C. RIGHT FOREHEAD LESION, MEDIAL MARGIN FSC1 POSITIVE FOR CARCINOMA IN SITU John Witt MD D. RIGHT FOREHEAD LESION, SUPERIOR MARGIN FSD1 SQUAMOUS CELL CARCINOMA IN SITU John Witt MD E. RIGHT FOREHEAD LESION, LATERAL MARGIN FSE1 SQUAMOUS CELL CARCINOMA IN SITU John Witt MD F. RIGHT FOREHEAD LESION, INFERIOR MARGIN FSF1 ACTINIC KERATOSIS John Witt MD Assessment and plan: Left ear defect and residual BCC Right forehead invasive SCC Did not tolerate Mohs procedure in the clinic. S/p 07/25/21 excision right forehead mass (SCC) with primary closure, and reexcision left auricle mass (BCC) with adjacent tissue transfer. Both areas had positive margins on frozen (SCC - AK or CIS, BCC - invasive BCC). Final pathology appears to now have clear margins in both areas. Discussed option of revision for left ear small fistula and left brow lift for symmetry but she is doing well and not interested. Following with Dr. Guerrero Here for lip and tongue lesions. Tongue has resolved (photo reviewed). Lower lip appears to be resolving mucocele so plan to observe. Return if interested in removal or if it worsens. The patient has been counseled on tobacco cessation: Not Applicable Arnulfo Pennington M.D. Fun House Attendant Division of Facial Plastic and Reconstructive Surgery Department of Otolaryngology & Head and Neck Surgery documented in this encounter Plan of Treatment Upcoming Encounters Date Type Department Care Team (Late st Contact Info) Description 10/29/2024 1:15 PM EDT Office Visit [facility] [address] [place] [address] Sade Salinas MD 110 [facility] [address] [place] [phone] 11/12/2024 10:30 AM EDT Office Visit [facility] [address] [place] [address] Sade Salinas MD [address] [place] [phone] documented as of this encounter Visit Diagnoses Diagnosis Mucocele of lip- Primary documented in this encounter Additional Health Concerns Infection Onset Date Last Indicated Resolved Time Human Metapneumovirus 05/29/2024 05/29/2024 Assessment Noted Time A fall risk assessment has been complete d for the patient 05/08/2024 11:36 AM EDT A Body Mass Index follow-up plan has been documented for the patient 09/01/2024 4:28 PM EDT documented as of this encounter Care Teams Turbo Electric Operator Relationship Specialty Start Date End Date Pcp, [place] [address] PCP - General Family Medicine 07/19/21 documented as of this encounter
--- OUTSIDE RECORDS SUMMARY | 2024-10-06 11:45 | XMS_ITS | Encounter Summary ---
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 Aspirin Low Dose 81 MG chewable tablet Chew 1 tablet daily. Calcium 250 MG capsule Take by mouth. carvedilol (Coreg) 6.25 MG tablet Take 1 tablet (6.25 mg) by mouth 2 (two) times a day with meals. cholecalciferol (Vitamin D-3) 50 MCG (2000 UT) capsule Take 1 capsule by mouth in the morning. clopidogrel (Plavix) 75 MG tablet Take 1 tablet (75 mg) by mouth 1 (one) time each day. fenofibrate (Tricor) 145 MG tablet TAKE ONE (1) TABLET EVERY DAY BY ORAL ROUTE FOR 90 DAYS. (Patient not taking: Reported on 05/08/2024) fluticasone (Flonase) 50 MCG/ACT nasal spray Administer 1 spray into each nostril daily as needed. furosemide (Lasix) 40 MG tablet Take 1 tablet by mouth daily. insulin aspart (NovoLOG FLEXPEN) 100 UNIT/ML injection 3 (three) times a day before meals. Per Pharmacy and patient: 24 units before breakfast, 16 units before lunch, and 16 units before dinner insulin glargine (Lantus) 100 UNIT/ML injection vial Inject 10 Units under the skin every morning. levothyroxine (Synthroid, Levoxyl) 75 MCG tablet Take 1 tablet (75 mcg total) by mouth 1 (one) timeeach day in the morning. Meclizine HCl 25 MG chewable tablet Chew 1 Chewable tablet 3 (three) times a day if needed. Multiple Vitamin (multivitamin) tablet Take 1 tablet by mouth daily. pantoprazole (Protonix) 40 MG EC tablet Take 1 tablet by mouth daily. Probiotic Product (acidophilus probiotic blend) capsule Take 1 capsule by mouth 1 (one) time each day. Repatha SureClick 140 MG/ML solution auto-injector INJECT EVERY TWO (2) WEEKS spironolactone (Aldactone) 25 MG tablet Take 1 tablet (25 mg) by mouth Daily. (Patient taking differently: Take 1 tablet (25 mg) by mouth Daily. Pt reports she alternates between 1 pill and 0.5 pills) No current facility-administered medications for this visit. (Other) ALLERGIES Allergies[1] PAST MEDICAL HISTORY Past Medical History[2] Surgical History[3] FAMILY HISTORY Family History[4] SOCIAL HISTORY Social History[5] GENERAL EXAM: General Exam: Neuro: Alert and Oriented x 3, normal mood and affect OPHTHALMIC EXAM: Base Eye Exam Neuro/Psych Oriented x3: Yes Mood/Affect: Normal Slit Lamp and Fundus Exam External Exam Right Left External Normal Normal Slit Lamp Exam Right Left Lids/Lashes Normal for age Normal for age Conjunctiva/Sclera Normal Normal Cornea Clear and compact Clear and compact, very sma;llineal abrasion perilimbal at 12 o'c Anterior Chamber Deep and quiet Deep, 1-2 + cell Iris Normal pupil size and shape;no nvi on dilated pupil Normal pupil size and shape;no nvi Lens 2+ Nuclear sclerosis, 2+ Posterior subcapsular cataract PCIOL, centered Anterior Vitreous Normal IMAGING AND PROCEDURES VISIT DIAGNOSES 1. Pseudophakia ASSESSMENT AND PLAN: Pseudophakia left eye (OS) Post-op D1 cataract extraction (CE) + intraocular lens (IOL) left eye (OS). Feeling well, no pain. Good intraocular pressure (IOP), good VA. Very small sup corneal abrasion , almost healed. Will do pred forte (PF) TID until healed and emycin barb tid. Plan: Start pred forte (PF) TID, emycin TID and shield at night time. Post-op precautions discussed. F/U 3-4 days week or PRN. Explained the diagnoses, plan, and follow up with the patient and they expressed understanding. Patient expressed understanding of the importance of proper follow up care. Follow up in 3 days (on 10/09/2024), or 1:[place]pm [facility] [place] Tobacco Cessation Initiative: Tobacco Use: Low Risk (10/06/2024) Patient History Smoking Tobacco Use: Never Smokeless Tobacco Use: Never Passive Exposure: Never The patient has been counseled on tobacco cessation: Not Applicable Electronically signed by: MD Sade Marin M.D. Network Operations Analyst of Ophthalmology [facility] [1] Allergies Allergen Reactions Amoxicillin Nausea and Unknown [...] comment field Does not work for pt [2] Past Medical History: Diagnosis Date Cataract Chronic kidney disease Coronary artery disease s/p PCI Diabetes mellitus (CMS/HCC) GERD (gastroesophageal reflux disease) Hyperlipidemia Hypertension Hypothyroidism Personal history of other diseases of the circulatory system History of carotid artery stenosis Unspecified diastolic (congestive) heart failure (CMS/HCC) Diastolic heart failure [3] Past Surgical History: Procedure Laterality Date APPENDECTOMY N/A Appendectomy from [facility] CARDIAC VALVE SURGERY s/p TAVR. CHOLECYSTECTOMY N/A Cholecystectomy from [facility] OTHER SURGICAL HISTORY N/A Transcatheter aortic valve replacement from [facility] ROTATOR CUFF REPAIR N/A Rotator cuff repair from [facility] [4] Family History Problem Relation Name Age of Onset Stroke Father Lawson Diabetes Father Lawson Macular degeneration Father's Sister Mila Macular degeneration Father's Sister Pinckard Macular degeneration Father's Sister Mila Macular degeneration Father's Sister Katya Malig Hyperthermia Neg Hx Anesthesia problems Neg Hx [5] Social History Tobacco Use Smoking status: Never Passive exposure: Never Smokeless tobacco: Never Vaping Use Vaping status: Never Used Substance Use Topics Alcohol use: No Drug use: No Comment: Drug use: No illicit drug use documented in this encounter Plan of Treatment Upcoming Encounters Date Type Department Care Team (Late st Contact Info) Description 10/29/2024 1:15 PM EDT Office Visit [facility] [address] [place] [address] Sade Salinas MD 110 [facility] [address] [place] [address] 11/12/2024 10:30 AM EDT Office Visit [facility] [address] [place] [address] Sade Salinas MD [address] [place] [address] documented as of this encounter Visit Diagnoses Diagnosis Pseudophakia- Primary Lens replaced by other means documented in this encounter Additional Health Concerns Infection Onset Date Last Indicated Resolved Time Human Metapneumovirus 05/29/2024 05/29/2024 Assessment Noted Time A fall risk assessment has been complete d for the patient 05/08/2024 11:36 AM EDT A Body Mass Index follow-up plan has been documented for the patient 10/06/2024 12:38 PM EDT documented as of this encounter Care Teams Correctional Case Manager Relationship Specialty Start Date End Date [place]cp, [place] [address] PCP - General Family Medicine 07/19/21 documented as of this encounter
--- OUTSIDE RECORDS SUMMARY | 2024-10-09 13:15 | XMS_ITS | Encounter Summary ---
Author Organization Healthcare Address [address] [place] [address] Care Team Providers Care Crocodile Farmer Name Role Phone Pcp, No Primary Care Provider Unavailabl e Reason for Visit * Reason Comments Post-op Encounter Details Date Type Department Care Team (Late st Contact Info) Description 10/09/2024 1:15 PM EDT Office Visit [facility] [address] [place] [address] Sade Salinas MD [address] [address] Pseudophakia (Primary Dx); Ocular ischemic syndrome; Combined forms of age-related cataract of right eye; Pseudophakia of left eye; Central retinal artery occlusion of right eye; Rubeosis iridis of right eye Social History [...] drink first t elba in the 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 female who presents to the clinic today for: HPI 84 yo f 4 day status post (s/p) cataract extraction (CE) intraocular lens (IOL) left eye (OS) Patient states: My left eye is great!. I can see out of it. No pain or discomfort. Using prednisoneand emycin ointment TID Last edited by Amparo Mooney on 10/09/2024 1:35 PM. REVIEW OF SYSTEMS: ROS Positive for: Eyes Last edited by Amparo Mooney on 10/09/2024 1:29 PM. Negative except for ROS Positive for: Eyes Last edited by Amparo Mooney on 10/09/2024 1:29 PM. Referring physician: No referring provider defined for this encounter. HISTORICAL INFORMATION: Selected notes from the medical record: CURRENT MEDICATIONS: Current Outpatient Medications (Ophthalmic Drugs) Medication Sig erythromycin (Romycin) 5 MG/GM ophthalmic ointment 1 Application. prednisoLONE acetate (Pred-Forte) 1 % ophthalmic suspension 1 drop 4 times a day. No current facility-administered medications for this visit. [...] by mouth 1 (one) time each day. fluticasone (Flonase) 50 MCG/ACT nasal spray Administer [...] tablet Take 1 tablet by mouth daily. Repatha SureClick 140 MG/ML solution auto-injector INJECT EVERY TWO (2) WEEKS spironolactone (Aldactone) 25 MG tablet Take 1 tablet (25 mg) by mouth Daily. (Patient taking differently: Take 1 tablet (25 mg) by mouth Daily. Pt reports she alternates between 1 pill and 0.5 pills) fenofibrate (Tricor) 145 MG tablet TAKE ONE (1) TABLET EVERY DAY BY ORAL ROUTE FOR 90 DAYS. (Patient not taking: Reported on 05/08/2024) insulin glargine (Lantus) 100 UNIT/ML injection vial Inject 10 Units under the skin every morning. Probiotic Product (acidophilus probiotic blend) capsule Take 1 capsule by mouth 1 (one) time each day. No current facility-administered medications for this visit. (Other) ALLERGIES Allergies[1] PAST MEDICAL HISTORY Past Medical History[2] Surgical History[3] FAMILY HISTORY Family History[4] SOCIAL HISTORY Social History[5] GENERAL EXAM: General Exam: Neuro: Alert and Oriented x 3, normal mood and affect OPHTHALMIC EXAM: Base Eye Exam Visual Acuity (Snellen - Linear) Right Left Dist sc HM 20/40 Tonometry (Tonopen, 1:36 PM) Right Left Pressure 12 12 Neuro/Psych Oriented x3: Yes Mood/Affect: Normal Slit [...] IMAGING AND PROCEDURES VISIT DIAGNOSES 1. Pseudophakia 2. Ocular ischemic syndrome 3. Combined forms of age-related cataract of right eye 4. Pseudophakia of left eye 5. 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 Feeling well, no pain. Good intraocular pressure (IOP), good VA. Very small sup corneal abrasion fully healed. Doing pred forte (PF) somewhat inconsistently. Plan: pred forte (PF) up to qid 4 days, then wean 3-2-1, emycin at bedtime (qhs) 4 days, then stop.Continue shield at night time. Post-op precautions discussed. F/U after right eye (OD) Explained the diagnoses, plan, and follow up with the patient and they expressed understanding. Patient expressed understanding of the importance of proper follow up care. No follow-ups on file. Tobacco Cessation Initiative: Tobacco Use: Low Risk (10/09/2024) Patient History Smoking Tobacco Use: Never Smokeless Tobacco Use: Never Passive Exposure: Never The patient has been counseled on tobacco cessation: Not Applicable Electronically signed by: MD Sade Marin M.D. Cleaner And Preparer of Ophthalmology Medical [facility] [1] Allergies Allergen Reactions Amoxicillin Nausea and [...] Procedure Laterality Date APPENDECTOMY N/A Appendectomy from [facility] CARDIAC VALVE SURGERY s/p TAVR. CATARACT EXTRACTION Left 10/05/2024 CHOLECYSTECTOMY N/A Cholecystectomy from [facility] OTHER SURGICAL HISTORY N/A Transcatheter aortic valve replacement from [facility] ROTATOR CUFF REPAIR N/A Rotator cuff repair from [facility] [4] Family History Problem Relation Name Age of Onset Stroke Father Lawson Diabetes Father Lawson Macular degeneration Father's Sister Mila Macular degeneration Father's Sister [place] Macular degeneration Father's Sister Mila Macular degeneration [...] Description 10/29/2024 1:15 PM EDT Office Visit [facility] [address] [place] [address] Sade Salinas MD 110 [facility] [place] [address] [place] [address] 11/12/2024 10:30 AM EDT Office Visit [facility] [address] [place] [address] Sade Salinas MD 110 [facility] [address] [place] [address] documented as of this encounter Visit Diagnoses Diagnosis Pseudophakia- Primary Lens replaced by other means Ocular ischemic syndrome Retinal ischemia Combined forms of age-related cataract of right eye Pseudophakia of left eye Lens replaced by other means Central retinal artery occlusion of right eye Central artery occlusion of retina Rubeosis iridis of right eye documented in this encounter Additional Health Concerns Infection Onset Date Last Indicated Resolved Time Human Metapneumovirus 05/29/2024 05/29/2024 Assessment Noted Time A fall risk assessment has been complete d for the patient 10/09/2024 1:26 PM EDT A Body Mass Index follow-up plan has been documented for the patient 10/06/2024 12:38 PM EDT documented as of this encounter Care Teams Crocodile Farmer Relationship Specialty Start Date End Date Pcp, [place] [address] PCP - General Family Medicine 07/19/21 documented as of this encounter
--- OUTSIDE RECORDS SUMMARY | 2024-10-20 08:00 | XMS_ITS | Encounter Summary ---
Author Organization Healthcare Address [address] [place] [address] Care Team Providers Care Space Physicist Name Role Phone Pcp, No Primary Care Provider Unavailabl e Encounter Details Date Type Department Care Team (Late st Contact Info) Description 10/20/2024 8:00 AM EDT Office Visit [facility] [address] [place] [address] Sade Salinas MD 110 [facility] [address] [place] [address] Pseudophakia (Primary Dx); Ocular ischemic syndrome; Central retinal artery occlusion of right eye; Rubeosis iridis of right eye; Vitreous hemorrhage of right eye (CMS/HCC) Social History Tobacco Use Types Packs/Day Years [...] drink first t elba in the 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 HISTORY OF PRESENT ILLNESS: Jenifer Gilliam is a 84 y.o. female who presents to the clinic today for: HPI 84 yo m presents in clinic for a 1 day PO, CEIOL OD. Pt states vision is this OS is great and I can't see out OD I can't see anything Pt notes last night it felt like I had a stick in it, feels like it has been pulling (irritation has improved). Pt denies flashes and floaters Drops; [place] TID, OU Last edited by Louis Rosa on 10/20/2024 8:24 AM. REVIEW OF SYSTEMS: ROS Positive for: Eyes Negative for: Constitutional, Gastrointestinal, Neurological, Skin, Genitourinary, Musculoskeletal,HENT, Endocrine, Cardiovascular, Respiratory, Psychiatric, Allergic/Imm, Heme/Lymph Last edited by Louis Rosa on 10/20/2024 8:24 AM. Negative except for ROS Positive for: Eyes Negative for: Constitutional, Gastrointestinal, Neurological, Skin, Genitourinary, Musculoskeletal,HENT, Endocrine, Cardiovascular, Respiratory, Psychiatric, Allergic/Imm, Heme/Lymph Last edited by Louis Rosa on 10/20/2024 8:24 AM. Referring physician: No referring provider defined for [...] - Linear) Right Left Dist sc HM Dist ph sc NI Tonometry (Tonopen, 8:29 AM) Right Left Pressure 17 Pupils Shape React APD Right Round dilated None Left Round Brisk None Neuro/Psych Oriented x3: Yes Mood/Affect: Normal Slit Lamp and Fundus Exam External Exam Right Left External Normal Normal Slit Lamp Exam Right Left Lids/Lashes Normal for age Normal for age Conjunctiva/Sclera Normal Normal Cornea Clear, 1+ edema Clear and compact, very sma;llineal abrasion perilimbal at 12 o'c Anterior Chamber Deep, 1+ cell Deep, tr cell Iris Normal pupil size and shape;no nvi on dilated pupil Normal pupil size and shape;no nvi Lens Posterior chamber intraocular lens (PCIOL) centered PCIOL, centered Anterior Vitreous Normal IMAGING AND PROCEDURES VISIT DIAGNOSES 1. Pseudophakia 2. Ocular ischemic syndrome 3. Central retinal artery occlusion of right eye 4. Rubeosis iridis of right eye 5. Vitreous hemorrhage of right eye (CMS/HCC) ASSESSMENT AND PLAN: Pseudophakia right eye (OD) - Post-op D1 cataract extraction (CE) + intraocular lens (IOL) right eye (OD). - Feeling well, no pain. Good intraocular pressure (IOP). 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 Post-op precautions discussed. F/U 1 week or PRN. Explained the diagnoses, plan, and follow up with the patient and they expressed understanding. Patient expressed understanding of the importance of proper follow up care. No follow-ups on file. Tobacco Cessation Initiative: Tobacco Use: Low Risk (10/20/2024) Patient History Smoking Tobacco Use: Never Smokeless Tobacco Use: Never Passive Exposure: Never The patient has been counseled on tobacco cessation: Not Applicable Electronically signed by: MD Sade Marin M.D. Plastic And Reconstructive Surgeon of Ophthalmology Medical [facility] [1] Allergies Allergen Reactions Amoxicillin Nausea [...] Procedure Laterality Date APPENDECTOMY N/A Appendectomy from [facility] CARDIAC VALVE SURGERY s/p TAVR. CATARACT EXTRACTION Left 10/05/2024 CATARACT EXTRACTION Right 10/19/2024 CHOLECYSTECTOMY N/A Cholecystectomy from [facility] OTHER SURGICAL HISTORY N/A Transcatheter aortic valve replacement from [facility] ROTATOR CUFF REPAIR N/A Rotator cuff repair from [facility] [4] Family History Problem Relation Name Age of Onset Stroke Father Lawson Diabetes Father Lawson Macular degeneration Father's Sister Mila Macular degeneration Father's Sister [place] Macular degeneration Father's Sister Mila Macular degeneration [...] Description 10/29/2024 1:15 PM EDT Office Visit [facility] [address] [place] [address] Sade Salinas MD [address] [phone] 11/12/2024 10:30 AM EDT Office Visit [facility] [address] [place] [address] Sade Salinas MD [address] [place] [address] documented as of this encounter Visit Diagnoses Diagnosis Pseudophakia- Primary Lens replaced by other means Ocular ischemic syndrome Retinal ischemia Central retinal artery occlusion of right eye Central artery occlusion of retina Rubeosis iridis of right eye Vitreous hemorrhage of right eye (CMS/HCC) Vitreous hemorrhage documented in this encounter Additional Health Concerns Infection Onset Date Last Indicated Resolved Time Human Metapneumovirus 05/29/2024 05/29/2024 Assessment Noted Time A fall risk assessment has been complete d for the patient 10/20/2024 8:25 AM EDT A Body Mass Index follow-up plan has been documented for the patient 10/20/2024 8:39 AM EDT documented as of this encounter Care Teams Space Physicist Relationship Specialty Start Date End Date Pcp, Nano [address] [place] [address] PCP - General Family Medicine 07/19/21 documented as of this encounter
--- OUTSIDE RECORDS SUMMARY | 2024-10-28 11:17 | XMS_ITS | Encounter Summary ---
Author Organization Healthcare Address [address] [place] [address] Care Team Providers Care Coach Tour Driver Name Role Phone Pcp, No Primary Care Provider Anika Baugh LPN Unavailable Unavailable Encounter Details Date Type Department Care Team (Late st Contact Info) Description 12/25/2021 Ophth Exam [facility] [address] [place] [phone] Willie Tineo MD [address] [place] [id number] Social History Tobacco Use Types Packs/Day [...] Description 10/29/2024 1:15 PM EDT Office Visit [facility] [address] [place] [address] Sade Salinas MD 110 [facility] [address] [place] [address] 11/12/2024 10:30 AM EDT Office Visit [facility] [address] [place] [address] Sade Salinas MD [address] [place] [address] documented as of this encounter Visit Diagnoses Not on filedocumented in this encounter Additional Health Concerns Infection Onset Date Last Indicated Resolved Time Respiratory Rule-Out 05/29/2024 05/29/2024 025 6:07 PM EDT Human Metapneumovirus 05/29/2024 05/29/2024 documented as of this encounter Care Teams Coach Tour Driver Relationship Specialty Start Date End Date Pcp, No [address] [place] [address] PCP - General Family Medicine 07/19/21 Anika Watson LPN VALUE[employer] [place] [address] TCM Nurse 12/27/21 01/25/22 documented as of this encounter
--- OUTSIDE RECORDS SUMMARY | 2024-10-28 11:18 | XMS_ITS | Encounter Summary ---
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) to steady your nerves or to [...] Department Care Team ( Contact Info) Description 10/29/2024 1:15 PM EDT Office Visit [facility] [address] [place] [address] Sade Salinas MD [address] [place] [address] 11/12/2024 10:30 AM EDT Office Visit [facility] [address] [place] [address] Sade Salinas MD [address] [place] [address] documented as of this encounter [...] documented as of this encounter Care Teams Director Of National Sales Relationship Specialty Start Date End Date [place], [place] [address] PCP - General Family Medicine 07/19/21 documented as of this encounter
--- OUTSIDE RECORDS SUMMARY | 2024-10-28 11:18 | XMS_ITS | Referral Summary ---
Author Organization [facility] ([place], [place], [place], [place]) Address [address] [place] [address] Care Team Providers Care Dry Wall Installations Mechanic Name Role Phone Rebecca Pack Primary Care Provider [phone] Allergies Active Allergy Reactions Criticality Noted Date [...] Products Other (See Comments) Low 12/25/2021 vomiting Zbyebcu-Ogu-Onc Reductase Inhibitors Medium 01/17/2022 Other reaction(s): myalgias [...] Tobacco: Never Tobacco Cessation:Counseling Given: Not Answered Food Insecurity Answer Date Recorded Food run [...] Date Javed rded Speak language other than Indonesian at home Not on file 08/02/2023 Want help with school or training Not on file 08/02/2023 Substance Use Answer Date Recorded Used [...] 10/08/2023 11:03 AM EDT Plan of Treatment Upcoming Encounters Date Type Department Care Team (Late st Contact Info) Description 11/10/2024 11:00 AM EDT Evaluation [facility] Physical Therapy [address] [facility] [place] [address] Yelena Solis, PT Insurance [employer] MEDICARE PPO Care Teams Dry Wall Installations Mechanic Relationship Specialty Start Date End Date Rebecca Pack [address] [place] [address] PCP - General 08/13/23
--- OUTSIDE RECORDS SUMMARY | 2024-10-28 11:18 | XMS_ITS | Encounter Summary ---
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 documented in this encounter Plan of Treatment Upcoming Encounters Date Type Department Care Team (Late st Contact Info) Description 10/29/2024 1:15 PM EDT Office Visit [facility] [address] [place] [address] Sade Salinas MD [address] [address] 11/12/2024 10:30 AM EDT Office Visit [facility] [address] [place] [address] Sade Salinas MD [address] [address] documented as of this encounter [...] documented as of this encounter Care Teams Machine Folder Relationship Specialty Start Date End Date Pcp, [place] [address] PCP - General Family Medicine 07/19/21 documented as of this encounter
--- OUTSIDE RECORDS SUMMARY | 2024-10-28 11:18 | XMS_ITS | Encounter Summary ---
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) to steady your nerves or to get [...] Description 10/29/2024 1:15 PM EDT Office Visit [facility] [address] [place] [address] Sade Salinas MD [address] [place] [address] 11/12/2024 10:30 AM EDT Office Visit [facility] [address] [place] [address] Sade Salinas MD [address] [place] [address] documented as of this encounter [...] documented as of this encounter Care Teams Line Builder Relationship Specialty Start Date End Date Pcp, [place] [address] PCP - General Family Medicine 07/19/21 documented as of this encounter
--- OUTSIDE RECORDS SUMMARY | 2024-10-28 11:18 | XMS_ITS | Clinical Summary ---
Author Organization [facility] ([place], [place], [place], [place]) Address [address] [place] [address] Care Team Providers Care Computer Systems Integrator Name Role Phone Rebecca Pack Primary Care Provider [phone] Allergies Active Allergy Reactions Criticality Noted Date [...] Products Other (See Comments) Low 12/25/2021 vomiting Cbpknvt-Hjm-Lbo Reductase Inhibitors Medium 01/17/2022 Other reaction(s): myalgias [...] Date Javed rded Speak language other than [place] Islander at home Not on file 08/02/2023 Want [...] Info) Description 11/10/2024 11:00 AM EDT Evaluation [facility] Physical Therapy [address] [place] [address] Yelena Solis, PT Health Maintenance Due Date Last Done Comments DXA SCAN 1939 Depression Screening (12+) 1951 DTAP/TDAP/TD VACCINES (1 - Tdap) 1958 Shingles Vaccine (Zoster) (1 of 2) 1989 Respiratory Syncytial Virus (RSV) Adult or (1 - 1-dose 75+ series) 2014 Pneumococcal 50+ years (2 of 2 - PCV) 12/09/2018 12/09/2017 Medicare Initial AWV [id number] 02/26/2019 Falls Risk Screening 02/26/2024 Tobacco Cessation Counseling and Screening (12+) 10/07/2024 10/08/2023 COVID-19 VACCINE (2024-2 6 season) 2024 12/25/2022, 01/10/2022, 10/17/2021, Additional history exists Influenza Vaccine (#1) 2024 , 01/10/2022, 02/06/2021, Additional history exists Insurance [employer] MEDICARE PPO Care Teams Computer Systems Integrator Relationship Specialty Start Date End Date Rebecca Pack [address] [place] [address] PCP - General 08/13/23
--- OUTSIDE RECORDS SUMMARY | 2024-10-28 11:18 | XMS_ITS | Encounter Summary ---
Author Organization Healthcare Address [address] [place] [address] Care Team Providers Care Private Security Guard Name Role Phone Pcp, No Primary Care Provider Unavailabl e Encounter Details Date Type Department Care Team (Latest Contact Info) Description 10/20/2024 Travel Social History Tobacco Use Types Packs/Day [...] drink first t elba in the morning (EYE-SANDBLAST OR SHOTBLAST EQUIPMENT TENDER) to steady your nerves or to get [...] Description 10/29/2024 1:15 PM EDT Office Visit [facility] [address] [place] [address] Sade Salinas MD [address] [place] [address] 11/12/2024 10:30 AM EDT Office Visit [facility] [address] [place] [address] Sade Salinas MD [address] [place] [address] documented as of this encounter [...] documented as of this encounter Care Teams Private Security Guard Relationship Specialty Start Date End Date Pcp, [place] [address] PCP - General Family Medicine 07/19/21 documented as of this encounter
--- OUTSIDE RECORDS SUMMARY | 2024-10-28 11:18 | XMS_ITS | Clinical Summary ---
Author Organization [facility] Address [address] [place] [address] Care Team Providers Care Component Prep Operator Name Role Phone Pcp, No Primary [...] skin every morning. 3 mL 2 5 Active prednisoLONE acetate (Pred-Forte) 1 % ophthalmic suspension 1 drop 4 times a day. Active erythromycin (Romycin) 5 MG/GM ophthalmic ointment 1 Application. Activ e Active Problems Problem Noted Date Diagnosed Date [...] (07/19/2021): Added automatically from request for surgery [id number] Squamous cell carcinoma of skin of face 07/20/19 22 Overview (07/19/2021): Added automatically from request for surgery [id number] Mohs defect 07/19/2021 Overview (07/19/2021): Added automatically from request for surgery [id number] Acquired hypothyroidism 06/20/2020 Chronic kidney disease due [...] Encounters Date Type Department Care Team Description 10/20/2024 8:00 AM EDT Office Visit [facility] [address] [place] [address] Sade Salinas MD Pseudophakia (Primary Dx); Ocular ischemic syndrome; Central retinal artery occlusion of right eye; Rubeosis iridis of right eye; Vitreous hemorrhage of right eye (CMS/HCC) 10/20/2024 Travel 10/09/2024 1:15 PM EDT Office Visit [facility] [address] [place] [address] Sade Salinas MD Pseudophakia (Primary Dx); Ocular ischemic syndrome; Combined forms of age-related cataract of right eye; Pseudophakia of left eye; Central retinal artery occlusion of right eye; Rubeosis iridis of right eye 10/09/2024 Travel 10/06/2024 11:45 AM EDT Office Visit [facility] [address] [place] [address] Sade Salinas MD Pseudophakia (Primary Dx) 10/06/2024 Travel 10/05/2024 Telephone [facility] [address] [place] [address] Sade Salinas MD 09/01/2024 3:00 PM EDT Office Visit [facility] [address] [place] [address] Arnulfo Pennington MD Mucocele of lip (Primary Dx) 09/01/2024 Travel 07/28/2024 Telephone [facility] [address] [place] [address] Michael Valentine MD from Last 3 Months Family History Medical History Relation Name Comments Diabetes Father Lawson Stroke Father Lawson Macular degeneration Father's Sister 1 Mila Macular degeneration Father's Sister 2 Katya Macular degeneration Father's Sister 3 Mila Macular degeneration Father's Sister 4 Katya Anesthesia problems Neg Hx Malig Hyperthermia Neg Hx Relation Name Status Comments Father Lawson Father's Sister 1 Mila Alive Father's Sister 2 [place] Alive Father's Sister 3 Mila Alive Father's Sister 4 [place] Alive Social History Tobacco Use Types Packs/Day [...] drink first t elba in the morning (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) to steady your nerves or to [...] Pulse 65 09/01/2024 3:37 PM EDT Temperature 36.3 C (97.4 F) 05/31/2024 11:46 AM EDT Respiratory Rate 18 05/31/2024 4:11 AM EDT Oxygen Saturation 92% 05/31/2024 11:46 AM EDT Inhaled Oxygen Concentration - - Weight 77.1 kg (170 lb) 09/01/2024 3:37 PM EDT Height 157.5 cm (5' 2 ) 09/01/2024 3:37 PM EDT Body Mass Index 31.09 09/01/2024 3:37 PM EDT Plan of Treatment Upcoming Encounters Date Type Department Care Team (Late st Contact Info) Description 10/29/2024 1:15 PM EDT Office Visit [facility] [address] [place] [address] Sade Salinas MD [address] [facility] [address] [place] [address] 11/12/2024 10:30 AM EDT Office Visit [facility] [address] [facility] [place] [address] Sade Salinas MD [address] [facility] [address] [place] [address] Health Maintenance Due Date Last Done Comments [facility]-Depression Screening 1940 [facility]-Medicare Annual Wellness (AWV) 1940 [facility]-Infant/Child/Adol SDOH Screenings [...] 06/24/2022 12/25/2021, 03/10/2020, 12/03/2019, Additional history exists [id number] Vaccine ( season) 2023 12/25/2022, 01/10/2022, 10/17/2021, Additional history exists [facility]-Influenza Vaccine (#1) 10/26/202411/06, 12/25/2022, 01/10/2022, Additional history exists [facility]-Obesity Intervention Completed 025, 10/06/2024, 09/01/2024, Additional history exists HPV Vaccines Aged Out [...] Procedure Name Priority Date/Time Associated Diagnosis Comments HEMOGLOBIN A1C Add-On 12/25/2021 3:01 AM EDT from Last 3 Months or Most Recently Relevant to Health Maintenance Results * (ABNORMAL) Hemoglobin A1c (12/25/2021 3:01 AM [...] Adults <6.0% Children and Adolescents <7.5% Source: [place] [employer]. Standards of medical care in diabetes,2017. Diabetes Care.2017:40 (suppl 1):S1-S135. HbA1c assay performed by an ion-exchange chromatography method that is certified traceable to the DCCT. Angelina Espinoza MD LAB BLOOD ORDERABLES Final Result [facility] [address] [place] [id number] from Last 3 Months or Most Recently Relevant to Health Maintenance Additional Health Concerns Infection Onset Date Last Indicated Human Metapneumovirus 05/29/2024 05/29/2024 Insurance [facility] MEDIC[facility] Advance Directives * DNR/DNI (Latest [...] Patient has decision-making capacity? Yes Care Teams Component Prep Operator Relationship Specialty Start Date End Date Pcp, No [address] [place] [address] PCP - General Family Medicine 07/19/21
--- OUTSIDE RECORDS SUMMARY | 2024-10-28 11:18 | XMS_ITS | Encounter Summary ---
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) to steady your nerves or to [...] 10/29/2024 1:15 PM EDT Office Visit [facility] [address] [place] [address] Sade Salinas MD [address] [place] [address] 11/12/2024 10:30 AM EDT Office Visit [facility] [address] [place] [address] Sade Salinas MD [address] [place] [address] documented as of this encounter [...] documented as of this encounter Care Teams Beet Flumer Relationship Specialty Start Date End Date Pcp, [place] [address] PCP - General Family Medicine 07/19/21 documented as of this encounter
[2024-10-28 11:36] LABS: Hematocrit 42.5 % (37.0-47.0); Hemoglobin 13.5 g/dL (12.2-16.2); Immature Granulocytes % 0.2 %; Mean Corpuscular HGB Conc 31.8 g/dL (31.8-35.4); Mean Corpuscular Hemoglobin 30.1 pg (27.0-31.2); Mean Corpuscular Volume 94.9 fl (81-99); Nucleated Red Blood Cells % 0 %; Platelet Count 177 K/mm3 (142-424); Red Blood Count 4.48 M/mm3 (4.20-5.40); Red Cell Distribution Width-SD 49.5 fL; White Blood Count 11.6 K/mm3 (4.8-10.8)
[2024-10-28 12:21] LABS: RBC Morphology Normal; Total Cells Counted 100
[2024-10-28 12:26] LABS: Albumin Level 4.3 g/dl (3.5-5.0); Chloride 100 mmol/L (98-107); Potassium 4.3 mmoL/L (3.5-5.1); Sodium 136 mmol/L (136-145)
[2024-10-28 12:28] LABS: Alanine Aminotransferase 22 U/L (12-78); Anion Gap 13.3 mEq/L (5-15); Aspartate Amino Transferase 37 U/L (14-36); Bilirubin,Unconjugated 0.7 mg/dL (0.0-1.1); Blood Urea Nitrogen 39 mg/dl (7-17); Carbon Dioxide 27 mmol/L (22.0-30.0); Creatinine,Serum 1.10 mg/dl (0.52-1.04); Estimated Glomerular Filt Rate 47 ml/min (>60); GFR (African American) 57 ML/MIN (>60)
[2024-10-28 12:29] LABS: Alkaline Phosphatase 76 U/L (38-126); Bilirubin,Direct 0.1 mg/dl (0.0-0.4); Bilirubin,Indirect 0.8 mg/dL (0.0-0.9); Bilirubin,Total 0.9 mg/dl (0.2-1.3); Calcium 9.6 mg/dl (8.4-10.2); Cholesterol 217 mg/dl (140-200); Glucose 248 mg/dl (74-100); HDL Cholesterol 59 mg/dl (40-60); Magnesium 1.4 mg/dl (1.6-2.3); Total Protein,Serum 7.5 g/dl (6.3-8.2); Triglycerides 208 mg/dl (30-150)
[2024-10-28 12:50] LABS: Free T4 (Free Thyroxine) 1.61 ng/dl (0.78-2.19)
[2024-10-28 13:00] LABS: Thyroid Stimulating Hormone 4.19 uIU/mL (0.465-4.68)
== END 2024-10-28 23:59 | disposition home or self-care (01) ==
LOC: LAB 11:01
PROVIDERS: PCP Nurse Practitioner Family; Visit Provider Nurse Practitioner
DX: E78.5 Hyperlipidemia, unspecified (principal); I65.29 Occlusion and stenosis of unspecified carotid artery
CPT/HCPCS: 36415; 80048; 80061; 80076; 83735; 84439; 84443; 85007; 85025